=== PATIENT | female | born 1975 | race Caucasian/White ===

== ENCOUNTER 2016-12-30 19:00 | Emergency (ER) | payer OTHER ==
[~2016-12-30] VITALS: Ht 160 cm; Wt 68.0 kg
[2016-12-30] MEDS ORDERED: ASPIRIN 81 MG CHEW TABLET PO ONE (20:00)
[2016-12-30] MEDS ORDERED: NITROGLYCERIN 0.4 MG SUBL TABLET SL PRN (20:00)
[2016-12-30] MEDS ORDERED: ONDANSETRON 4MG/2ML VIAL (J2405) IV ONE (20:00)
[2016-12-30 20:04] VITALS: BP 162/97
[2016-12-30 20:04] LABS: BASO % 0.2 % (0.0-1.0); EOS % 0.4 % (0.0-3.0); LARGE UNSTAINED CELL # 0.1 K/mm3 (0.0-0.4); LYMPH # 1.1 K/mm3 (1.5-4.5); MEAN CORPUSCULAR HEMOGLOBIN 28.9 pg (27.0-33.0); MEAN CORPUSCULAR HGB CONC 33.7 g/dl (32.0-36.5); MEAN CORPUSCULAR VOLUME 85.7 fl (80.0-96.0); MONO # 0.6 K/mm3 (0.0-0.8); MONO % 4.5 % (0.0-5.0); NEUTROPHILS # 10.8 K/mm3 (1.8-7.7); PLATELET COUNT, AUTOMATED 374 k/mm3 (150-450); RED CELL DISTRIBUTION WIDTH 13.1 % (11.5-14.5); WHITE BLOOD COUNT 12.6 K/mm3 (4.0-10.0)
[2016-12-30] MEDS ORDERED: MORPHINE 4 MG/ML 1ML SYRINGE IV PRN (20:30)
[2016-12-30 20:34] LABS: ANION GAP 7 MEQ/L (8-16); BLOOD UREA NITROGEN 15 MG/DL (7-18); CALCIUM LEVEL 9.5 MG/DL (8.5-10.1); CARBON DIOXIDE LEVEL 29 MEQ/L (21-32); CHLORIDE LEVEL 102 MEQ/L (98-107); CREATININE FOR GFR 0.63 MG/DL (0.55-1.02); GLOMERULAR FILTRATION RATE > 60.0 (>58); GLUCOSE, FASTING 111 MG/DL (70-105); POTASSIUM SERUM 3.3 MEQ/L (3.5-5.1); SODIUM LEVEL 138 MEQ/L (136-145)
[2016-12-30] MEDS ORDERED: ISOVUE-370 76% 100ML VIAL (Q9967) As Ordered ONE ×2 (20:38→21:06)
[2016-12-30 20:49] LABS: CONTROL LINE HCG INT CTR LINE PRESENT
[2016-12-30] MEDS ORDERED: METOCLOPRAMIDE INJ 10MG/2ML VIAL (J2765) IV ONE (21:30)
--- NOTE | 2016-12-30 21:40 | REPUSA ---
CT angiogram of the chest Clinical statement: Chest pain and shortness of breath. Technique: Multiple axial CT images were obtained from the thoracic inlet through the upper abdomen a fter a bolus administration of nonionic intravenous contrast. Coronal and sagittal reconstructions we re also obtained. Comparison: None. Findings: The pulmonary arteries are well-opacified with contrast, with no intraluminal filling defec ts to suggest embolism. The thoracic aorta is unremarkable. Thyroid gland is within normal limits. Th ere is no thoracic lymphadenopathy. There are no pericardial or pleural effusions. The lungs are lui r. Limited imaging of the upper abdomen is unremarkable. There are no suspicious osseous lesions. Impression: Unremarkable CT examination of the chest. No evidence of pulmonary embolism.
--- NOTE | 2016-12-30 21:44 | ECGEPIP ---
Stationary ECG Study [facility] - ED Test Date: 2016-12-30 Pat Name: ROB SANCHEZ Department: Room: - Gender: F Sawmill Worker: rn : 1975 Requested By: LORENA Hernandez Order Number: [id number] Reading MD: Fabian Mcnamara Measurements Intervals [place] Rate: 95 P: 31 NV: 162 QRS: 4 QRSD: 85 T: 13 QT: 343 QTc: 432 Interpretive Statements SINUS RHYTHM VOLTAGE CRITERIA FOR LVH NONSPECIFIC T-WAVE ABNORMALITY NO PRIORS Electronically Signed On 12-30-2016 21:44:27 EDT by Fabian Mcnamara
[2016-12-30 22:53] VITALS: BP 109/73
== END 2016-12-30 22:54 | disposition home or self-care (01) ==
LOC: M ED 20:53
DX: R07.89 Other chest pain (principal); J30.2 Other seasonal allergic rhinitis; Z88.5 Allergy status to narcotic agent; Z91.040 Latex allergy status

== ENCOUNTER → 2017-01-24 | Outpatient (CLI) | payer OTHER ==
--- NOTE | 2017-01-24 15:29 | REPMRS ---
Patient History The patient states she had a clinical breast exam in 01/2017. Patient is postmenopausal. No known family history of cancer. Digital Woman Screen Mammo: January 24, 2017 - Exam #: [id number] Bilateral CC and MLO view(s) were taken. Technologist: Hannah Peterson, Technologist Prior study comparison: June 03, 2012, bilateral digital mammo screening bilat, performed at [facility]. FINDINGS: There are scattered fibroglandular densities. There has been no change in the appearance of the mammogram from the prior studies. There is a mild amount of residual fibroglandular tissue which is fairly symmetric. There is no interval development of dominant mass, architectural distortion, or clustered microcalcification suggestive of malignancy. ASSESSMENT: BI-RADS/ACR category 1 mammogram. Negative. Recommendation Routine screening mammogram in 1 year (for women over age 40). This mammogram was interpreted with the aid of an FDA-approved computer-aided dectection system. Electronically Signed By: Emir Roldan MD 01/24/17 1437
--- NOTE | 2017-01-28 09:51 | DEXA ---
AP SPINE L1 - L4 0.889 -2.5 -2.5 LT FEMUR TOTAL 0.807 -1.6 -1.3 RT FEMUR TOTAL 0.772 -1.9 -1.6 TOTAL BODY TOTAL OTHER L4 0.781 -3.4 -3.4 DUAL FEMUR FRAX* ASSESSMENT Risk factors: Premature menopause. 10 year probability of fracture Major osteoporotic fracture 3.0 % Hip fracture 0.4 % COMMENTS: There is low bone density of the spine and hips. FOLLOW-UP: Recommendation for the next bone density exam: 2 years. MTDD
== END ==
LOC: M WHC 14:31
PROVIDERS: ATTEND Specialist
DX: Z12.31 Encounter for screening mammogram for malignant neoplasm of breast (principal); M81.8 Other osteoporosis without current pathological fracture
CPT/HCPCS: 77080; G0202

== ENCOUNTER 2017-02-20 09:36 | Emergency (ER) | payer OTHER ==
[~2017-02-20] VITALS: Ht 157.5 cm; Wt 68.1 kg
[2017-02-20] MEDS ORDERED: METOCLOPRAMIDE 10 MG TAB PO ONE (11:15)
[2017-02-20] MEDS ORDERED: KETOROLAC 60 MG/2 ML VIAL (J1885) IM ONE (11:15)
--- NOTE | 2017-02-20 11:40 | REP ---
CT Head without contrast HISTORY: Headache COMPARISON: None There is no intraparenchymal hemorrhage, acute infarct, mass or midline shift. The ventricular system is normal in appearance. There is no extra cerebral collection. There is no fracture. The visualized sinuses are clear. IMPRESSION: There is no intracranial lesion. Signed by Osmany Kaur MD 02/20/2017 11:24 A
--- NOTE | 2017-02-20 11:40 | REP ---
CT cervical spine without contrast HISTORY: Neck pain COMPARISON: 08/20/2014 There is no acute fracture or subluxation. There is no disc bulge or herniation. The spinal canal and neural foramina are patent. The intervertebral discs and vertebral bodies are normal in height. IMPRESSION: There is no acute fracture or subluxation. Signed by Osmany Kaur MD 02/20/2017 11:28 A
[2017-02-20] MEDS ORDERED: REGL10TA6 PO (11:55)
[2017-02-20] MEDS ORDERED: MOBI4TAB PO (11:55)
[2017-02-20] MEDS ORDERED: ZANA4TAB PO (11:55)
[2017-02-20 12:05] VITALS: BP 136/84
== END 2017-02-20 12:19 | disposition home or self-care (01) ==
LOC: M ED 09:36
DX: R51 Headache (principal); M54.2 Cervicalgia; G89.29 Other chronic pain

== ENCOUNTER → 2017-02-20 | Outpatient (CLI) | payer OTHER ==
[~2017-02-20] MED LIST: CIPR-249 PO; FLOM5CAP PO; MOBI4TAB PO; REGL10TA6 PO; ZANA4TAB PO
== END ==
LOC: M LAB 07:53
PROVIDERS: ATTEND Specialist
DX: N91.1 Secondary amenorrhea (principal)

== ENCOUNTER → 2017-02-26 | Outpatient (REF) | payer OTHER ==
[2017-02-26 14:30] LABS: ALBUMIN 3.8 GM/DL (3.2-5.2); ALBUMIN/GLOBULIN RATIO 1.12 (1.00-1.93); ALKALINE PHOSPHATASE 123 U/L (45-117); ALT/SGPT 30 U/L (12-78); ANION GAP 5 MEQ/L (8-16); AST/SGOT 14 U/L (15-37); BILIRUBIN,TOTAL 0.4 MG/DL (0.2-1.0); BLOOD UREA NITROGEN 7 MG/DL (7-18); CALCIUM LEVEL 9.4 MG/DL (8.5-10.1); CARBON DIOXIDE LEVEL 29 MEQ/L (21-32); CHLORIDE LEVEL 107 MEQ/L (98-107); CHOLESTEROL LEVEL 202 MG/DL (<200); CREATININE FOR GFR 0.58 MG/DL (0.55-1.02); GLOMERULAR FILTRATION RATE > 60.0 (>58); GLUCOSE, FASTING 81 MG/DL (70-105); SODIUM LEVEL 141 MEQ/L (136-145); TOTAL PROTEIN 7.2 GM/DL (6.4-8.2); TRIGLYCERIDES LEVEL 104 MG/DL (<150)
[2017-02-26 14:40] LABS: POTASSIUM SERUM 5.6 MEQ/L (3.5-5.1)
== END ==
LOC: M LAB REF 13:34
PROVIDERS: ATTEND Family Medicine Addiction Medicine
DX: E03.9 Hypothyroidism, unspecified (principal); E78.5 Hyperlipidemia, unspecified; E55.9 Vitamin D deficiency, unspecified

== ENCOUNTER 2017-04-03 15:28 | Emergency (ER) | payer OTHER ==
[~2017-04-03] VITALS: Ht 160 cm; Wt 68.2 kg
[~2017-04-03 15:28] MED LIST changes: -CIPR-249 PO; -FLOM5CAP PO
[2017-04-03] MEDS ORDERED: NS 1,000 ML IV ONE (16:00)
[2017-04-03 16:39] LABS: BASO % 0.2 % (0.0-1.0); EOS # 0.1 K/mm3 (0.0-0.50); EOS % 1.5 % (0.0-3.0); LARGE UNSTAINED CELL # 0.2 K/mm3 (0.0-0.4); LARGE UNSTAINED CELL % 2.5 % (0.0-4.0); LYMPH # 1.8 K/mm3 (1.5-4.5); LYMPH % 25.4 % (24.0-44.0); MEAN CORPUSCULAR HEMOGLOBIN 29.3 pg (27.0-33.0); MEAN CORPUSCULAR HGB CONC 33.8 g/dl (32.0-36.5); MEAN CORPUSCULAR VOLUME 86.6 fl (80.0-96.0); MONO # 0.4 K/mm3 (0.0-0.8); MONO % 6.4 % (0.0-5.0); NEUTROPHILS # 4.4 K/mm3 (1.8-7.7); PLATELET COUNT, AUTOMATED 382 k/mm3 (150-450); RED CELL DISTRIBUTION WIDTH 12.9 % (11.5-14.5); WHITE BLOOD COUNT 6.9 K/mm3 (4.0-10.0)
[2017-04-03 16:46] LABS: CONTROL LINE HCG INT CTR LINE PRESENT
[2017-04-03 16:55] LABS: ALBUMIN 3.8 GM/DL (3.2-5.2); ALKALINE PHOSPHATASE 114 U/L (45-117); ALT/SGPT 17 U/L (12-78); ANION GAP 8 MEQ/L (8-16); AST/SGOT 7 U/L (15-37); BILIRUBIN,DIRECT < 0.1 MG/DL (0.0-0.2); BILIRUBIN,TOTAL 0.3 MG/DL (0.2-1.0); BLOOD UREA NITROGEN 8 MG/DL (7-18); CALCIUM LEVEL 8.5 MG/DL (8.5-10.1); CARBON DIOXIDE LEVEL 28 MEQ/L (21-32); CHLORIDE LEVEL 109 MEQ/L (98-107); CREATININE FOR GFR 0.56 MG/DL (0.55-1.02); GLOMERULAR FILTRATION RATE > 60.0 (>58); GLUCOSE, FASTING 69 MG/DL (70-105); POTASSIUM SERUM 3.3 MEQ/L (3.5-5.1); SODIUM LEVEL 145 MEQ/L (136-145); TOTAL PROTEIN 7.6 GM/DL (6.4-8.2)
[2017-04-03] MEDS ORDERED: POTASSIUM CHLORIDE 10 MEQ SR TABLET PO ONE (17:00)
--- NOTE | 2017-04-03 17:42 | REP ---
CT abdomen pelvis without IV or oral contrast: Renal stone protocol. History: Right flank pain. Comparison study: 03/22/2015. Findings: Preliminary digital warrant clerk radiograph is unremarkable. The lung bases are clear. The liver and the spleen are normal in size homogeneous in texture. No adrenal lesion is seen. No pancreatic abnormality is noted. The gallbladder small and contracted in appearance. No retroperitoneal mass or adenopathy is seen. Uterus is surgically absent. Urinary bladder is unremarkable. There is moderate right-sided hydronephrosis. Right hydroureter is seen in can be traced into the pelvis where there is a obstructing distal ureteral calculus just above the ureterovesical junction. This obstructing calculus measures 4 mm in greatest diameter. There is a intrarenal calculus in the lower pole right kidney measuring 3 mm in diameter. There is an intrarenal 3 mm calculus at the left mid kidney. No left-sided hydronephrosis is seen. No ureteral calculus is noted on the left. No bladder calculus is seen. The appendix is not seen. Impression: 1. Bilateral intrarenal nephrolithiasis. 2. Moderate right-sided hydronephrosis and hydroureter due to a 4 mm right distal ureteral calculus just above the ureterovesical junction. Signed by Noel Herrera MD 04/04/2017 08:31 A
[2017-04-03] MEDS ORDERED: CIPR-249 PO (17:54)
[2017-04-03 17:55] VITALS: BP 136/83
[2017-04-03] MEDS ORDERED: FLOM5CAP PO (17:55)
[2017-04-03] MEDS ORDERED: CIPROFLOXACIN 500 MG TAB PO ONE (18:00)
[2017-04-03] MEDS ORDERED: TAMSULOSIN 0.4 MG CAP PO ONE (18:00)
[2017-06-19] MEDS ORDERED: KEFL500C17 PO (11:20)
[2017-06-19] MEDS ORDERED: TESS100C PO (11:20)
[2017-06-19] MEDS ORDERED: PROAAER10 INH (11:20)
[2017-06-19] MEDS ORDERED: PRED20TA PO (11:20)
== END 2017-04-03 18:20 | disposition home or self-care (01) ==
LOC: M ED 15:28
DX: N20.1 Calculus of ureter (principal)

== ENCOUNTER 2018-06-04 10:27 | Emergency (ER) | payer OTHER ==
[2018-06-04 11:10] LABS: BASO % 0.5 % (0.0-1.0); EOS # 0.1 10^3/uL (0.0-0.50); EOS % 0.9 % (0.0-3.0); HEMATOCRIT 39.3 % (36.0-47.0); HEMOGLOBIN 13.1 g/dl (12.0-15.5); IMMATURE GRANULOCYTE % 0.3 % (0-3.0); LYMPH % 30.3 % (24.0-44.0); MEAN CORPUSCULAR HEMOGLOBIN 28.6 pg (27.0-33.0); MEAN CORPUSCULAR HGB CONC 33.3 g/dl (32.0-36.5); MEAN CORPUSCULAR VOLUME 85.8 fl (80.0-96.0); MONO # 0.6 10^3/uL (0.0-0.8); MONO % 9.4 % (0.0-5.0); NEUTROPHILS # 3.8 10^3/uL (1.8-7.7); NEUTROPHILS % 58.6 % (36.0-66.0); PLATELET COUNT, AUTOMATED 377 10^3/uL (150-450); RED BLOOD COUNT 4.58 10^6/uL (4.00-5.40); RED CELL DISTRIBUTION WIDTH 12.9 % (11.5-14.5); WHITE BLOOD COUNT 6.5 10^3/uL (4.0-10.0)
[2018-06-04 11:16] LABS: KETONE, URINE AUTO RFX NEGATIVE (NEGATIVE); MUCUS, URINE RFX SMALL (NEGATIVE); NITRITE, URINE AUTO RFX NEGATIVE (NEGATIVE); RBC, URINE AUTO RFX 2 /HPF (0-3); SPECIFIC GRAVITY UR AUTO RFX 1.011 (1.002-1.035); SQUAM EPITHELIAL CELL UR AURFX 0 /HPF (0-6); WBC, URINE AUTO RFX 8 /HPF (0-3)
[2018-06-04 11:36] LABS: ALBUMIN/GLOBULIN RATIO 1.18 (1.00-1.93); ALKALINE PHOSPHATASE 118 U/L (45-117); ALT/SGPT 19 U/L (12-78); ANION GAP 5 MEQ/L (8-16); AST/SGOT 16 U/L (7-37); BILIRUBIN,DIRECT < 0.1 MG/DL (0.0-0.2); BILIRUBIN,TOTAL 0.3 MG/DL (0.2-1.0); BLOOD UREA NITROGEN 9 MG/DL (7-18); CALCIUM LEVEL 9.6 MG/DL (8.5-10.1); CARBON DIOXIDE LEVEL 31 MEQ/L (21-32); CHLORIDE LEVEL 106 MEQ/L (98-107); CREATININE FOR GFR 0.64 MG/DL (0.55-1.30); GLOMERULAR FILTRATION RATE > 60.0 (>58); GLUCOSE, FASTING 91 MG/DL (70-100); LEUKOCYTE ESTERASE UR AUTO RFX 1+ (NEGATIVE); LIPASE 179 U/L (73-393); POTASSIUM SERUM 4.4 MEQ/L (3.5-5.1); SODIUM LEVEL 142 MEQ/L (136-145); TOTAL PROTEIN 7.4 GM/DL (6.4-8.2)
[2018-06-04] MEDS: CIPROFLOXACIN 500 MG TAB PO (12:06)
== END 2018-06-04 12:16 | disposition home or self-care (01) ==
LOC: M ED 10:27
DX: N30.90 Cystitis, unspecified without hematuria (principal); Z87.442 Personal history of urinary calculi; Z88.5 Allergy status to narcotic agent; Z91.040 Latex allergy status; J30.2 Other seasonal allergic rhinitis
CPT/HCPCS: 74176

== ENCOUNTER 2019-04-09 11:27 | Day surgery (SDC) | payer OTHER, SELFPAY ==
[~2019-04-09] VITALS: Ht 160 cm; Wt 67.2 kg
[~2019-04-09 11:27] MED LIST changes: +CIPR-249 PO; +FLOM0.4C39 PO; +IBUP-1022 PO; +KEFL500C17 PO; +LIDOCAINE 1% MDV 20ML VIAL SQ PRN; +LIDOCAINE 2% INJ 100 MG/5 ML SDV (FOR ANES.) As Ordered ONE; +LR 1,000 ML IV SCH; +MIDAZOLAM INJ 2 MG/2 ML VIAL (J2250) As Ordered ONE; +ONDANSETRON 4MG/2ML VIAL (J2405) As Ordered ONE; +PRED20TA PO; +PROAAER10 INH; +PROPOFOL 200 MG/20 ML VIAL As Ordered ONE; +ROCURONIUM BROMIDE 50 MG/5 ML VIAL As Ordered ONE; +TESS100C PO; +dexameTHASONE 4 MG/ML 1ML VIAL (J1100) As Ordered ONE; +fentaNYL 100 MCG/2 ML INJECTION (J3010) As Ordered ONE
[2019-04-09] MEDS ORDERED: LIDOCAINE 2% MDV *ALTO* 20 ML VIAL ONE (11:28)
[2019-04-09] MEDS ORDERED: ROPIvacaine 0.5% 30 ML INJECTION (J2795 PER 1MG) ONE (11:28)
[2019-04-09] MEDS ORDERED: dexameTHASONE 10 MG/1 ML VIAL PRES.FREE (J1100) ONE (11:28)
[2019-04-09] MEDS ORDERED: EPINEPHrine 1MG/ML INJ 30ML MD-VIAL As Ordered ONE (12:02)
[2019-04-09] MEDS ORDERED: MIDAZOLAM INJ 2 MG/2 ML VIAL (J2250) As Ordered ONE (12:13)
[2019-04-09] MEDS ORDERED: fentaNYL 100 MCG/2 ML INJECTION (J3010) As Ordered ONE (12:13)
[2019-04-09] MEDS ORDERED: HYDROmorphone HCL 2 MG/ML 1ML VIAL (J1170) As Ordered ONE (13:21)
[2019-04-09] MEDS ORDERED: SUGAMMADEX SODIUM 500 MG/5 ML VIAL (BRIDION) As Ordered ONE (13:35)
[2019-04-09] MEDS ORDERED: PHENYLephrine HCL 500 MCG/5 ML (100MCG/ML) SYRINGE (J2370) As Ordered ONE (13:47)
[2019-04-09] MEDS ORDERED: ROCURONIUM BROMIDE 50 MG/5 ML VIAL As Ordered ONE (13:58)
[2019-04-09] MEDS ORDERED: MIDAZOLAM INJ 2 MG/2 ML VIAL (J2250) IV ONE (14:30)
[2019-04-09] MEDS ORDERED: fentaNYL 100 MCG/2 ML INJECTION (J3010) IV ONE (14:30)
[2019-04-09] MEDS ORDERED: ACETAMINOPHEN 1000MG 100ML IV BTL (OFIRMEV) (J0131 PER 10MG) As Ordered ONE (15:09)
[2019-04-09] MEDS ORDERED: PERCOCET 5MG/325MG TAB PO PRN (16:30)
[2019-04-09] MEDS ORDERED: LR 1,000 ML IV SCH ×2 (16:30→18:45)
[2019-04-09] MEDS ORDERED: HYDROMORPHONE HCL 0.5 MG/ 0.5 ML SYRINGE (J1170 PER 1) IV PRN (16:30)
[2019-04-09] MEDS ORDERED: fentaNYL 100 MCG/2 ML INJECTION (J3010) IV PRN (16:30)
[2019-04-09] MEDS ORDERED: ONDANSETRON 4MG/2ML VIAL (J2405) IV PRN (16:30)
[2019-04-09] MEDS ORDERED: METOCLOPRAMIDE INJ 10MG/2ML VIAL (J2765) As Ordered ONE (16:38)
[2019-04-09] MEDS ORDERED: METOCLOPRAMIDE INJ 10MG/2ML VIAL (J2765) IV SCH (16:45)
[2019-04-09] MEDS ORDERED: PROMETHAZINE INJ 25 MG/ML VIAL (J2550) As Ordered ONE (18:20)
[2019-04-09] MEDS ORDERED: PROMETHAZINE INJ 25 MG/ML VIAL (J2550) IV SCH (18:30)
[2019-04-09 19:50] VITALS: BP 124/71
--- NOTE | 2019-04-09 23:00 | RO ---
DATE OF PROCEDURE: 04/09/2019 PREOPERATIVE DIAGNOSES: 1. Left shoulder partial thickness rotator cuff tear. 2. Left shoulder superior labral tear. 3. Left shoulder acromioclavicular joint arthritis. POSTOPERATIVE DIAGNOSES: 1. Left shoulder partial thickness rotator cuff tear. 2. Left shoulder superior labral tear. 3. Left shoulder acromioclavicular joint arthritis. PROCEDURE: 1. Left shoulder arthroscopic rotator cuff repair. 2. Left shoulder open subpectoral biceps tenodesis. 3. Right shoulder arthroscopic extensive bursectomy. SURGEON: Dr. Alberto Padron QA SOFTWARE TESTER: KIMMY Kauffman ANESTHESIA: General with preoperative nerve block. IV FLUIDS: Lactated Ringer's. ESTIMATED BLOOD LOSS: 10 mL. IMPLANTS: Arthrex proximal biceps tenodesis button times one, Arthrex 4.75 mm PEEK SwiveLock anchor times three. CLOSURE: Nylon and Monocryl. DESCRIPTION OF PROCEDURE: Patient identified in the preoperative holding area. The left shoulder was marked by myself. She had interscalene nerve block. She was brought to the operating room, placed supine on a well-padded operating room (OR) table with a beanbag. General anesthesia induced. She received appropriate intravenous (IV) antibiotics within 1 hour of incision. Exam under anesthesia revealed 170 degrees of forward flexion, 80 of external rotation with the arm at her side. She was then placed into the right side down lateral decubitus position with an axillary roll, and all bony prominences well padded. She had bilateral Venodyne boots for deep vein thrombosis (DVT) prophylaxis. Beanbag was deflated, she was secured to the OR table, and then the left arm was placed into the Arthrex STaR Sleeve lateral decubitus traction boykin. The left shoulder was then prepped and draped in the normal sterile fashion with Chloraprep. Prior to incision, a time-out was performed per hospital protocol. Ely Mcrae was present for the entire procedure and participated in all essential portions of the procedure. This included holding the arthroscope, retrieving sutures arthroscopically, using the mallet and awl to help create sockets for anchors and holding retractors, and assisting with the whipstitch during the biceps tenodesis. The left shoulder was insufflated with lactated Ringer's and a posterior viewing portal made with 11 blade. 30 degree arthroscope introduced into the joint atraumatically, and a diagnostic arthroscopy revealed degenerative labral tearing in the anterior and superior labrum. There was minimal grade 1 chondromalacia in the humeral head and glenoid. There was tearing; there was partial articular tearing of the supraspinatus as well as tearing of the upper border of the subscapularis. An anterior working portal was localized through the rotator interval in line with the acromioclavicular (AC) joint. A purple Arthrex cannula was placed. There was lift off of the subscapularis doing the posterior lever push maneuver. A shaver was used to perform a debridement of the partial articular tear of both the subscapularis and supraspinatus. The biceps tendon was probed. There was no tearing of the biceps. At this point, there was significant lift off with greater than 1 cm of exposed lesser tuberosity; therefore, subscapularis repair required. There was also tearing of the superior labrum. This required at biceps tenodesis. A meniscal biter was used to release the biceps tendon off the superior labrum. I then used the shaver to remove soft tissue off the lesser tuberosity to create a bleeding surface. The Scorpion was used to pass FiberTape through the upper one-third of the subscapularis further medial through healthy tissue. This was retrieved out an accessory anterior portal to give a better angle for placing the anchor. A socket was created with the awl and mallet and then the SwiveLock anchor was docked, sutures tensioned and the anchor inserted by hand with excellent fixation. Sutures were cut with arthroscopic straight cutter. There was no longer any liftoff the subscapularis. I then proceeded with an open biceps tenodesis. Incision made with a 15 blade just lateral to the axilla and then subcutaneous dissection with electrocautery and Metzenbaum scissors. Biceps fascia carefully opened with Metzenbaum scissors and a right angle clamp used to dissect out the long head of the biceps tendon uneventfully. The Arthrex proximal biceps kit was opened, a running locking whipstitch placed with the FiberLoop and then excess tendon trimmed and sent to pathology. The sutures were loaded through the biceps button per routine. Cautery was used to linn the proposed drill hole and then the sutures approximated to the cautery linn, and this was found to nicely restore the resting tension. Jasper tip drill bit was then used to create a unicortical socket within the bicipital groove and irrigation used to remove all bony debris. The button was then passed through the drill hole on its constitutional law professor, sutures were toggled which flipped the button and then docked the tendon nicely along the bicipital groove. A curve-free needle was used to pass one limb of suture back through the tendon and then knots were tied by hand to lock the construct in place, and this nicely restored the resting tension. The incision was extensively irrigated, closed in layered fashion with #2-0 Vicryl and a running Monocryl. At the end of the case, Steri-Strips were placed. Arthroscope was placed into the subacromial space where there was extensive bursitis. Once the plane between bursa and rotator cuff was developed, I had to perform an extensive bursectomy with shaver and cautery, taking care not to damage the degenerative bursal surface. Then attempted to localize the acromioclavicular joint. This was eventually localized with a spinal needle. However, there was significant scar tissue and despite creating an accessory posterolateral portal to give a better review, whenever the radiofrequency cautery was used to remove the scar tissue, bleeding was encountered and had to be cauterized. After spending 10 minutes clearing out soft tissue within the subacromial space, I felt that it was unwise to proceed with an arthroscopic distal clavicle excision, and we move forward with doing the rest of the rotator cuff repair. Spinal needle was passed through the highest degree area of bursal-sided rotator cuff tearing and then the scope placed back into the joint, and this confirmed that this was within the anterior to middle supraspinatus. This was felt to represent about a two-thirds partial thickness tear with just under 50% partial articular tear and slightly under 25% bursal-sided tear. Cautery was used to complete the tear and then soft tissue was cleared off the tuberosity to create a bleeding surface. An Arthrex 4.75 mm SwiveLock anchor preloaded with tape was then placed just off the articular surface percutaneously. Sutures were passed in a horizontal mattress fashion including the eyelet stitches for a total of four passes. The sutures were then brought out to the lateral cannula and that was used to determine the appropriate place for the lateral anchor. Sutures loaded through a 4.75 mm PEEK SwiveLock anchor. The awl was used to create a socket in the lateral greater tuberosity. The anchor was docked, malleted and then inserted by hand with fantastic fixation. There was an excellent spread on the sutures with no dog ears. The shoulder was then gently internally and externally rotated. There was no lift off for buckling. Shoulder was irrigated and drained. Portals were closed with nylon suture. Bulky sterile dressing was applied. She was carefully placed into her sling, extubated, sent to post-anesthesia care unit (PACU) in stable condition. All counts correct times two.
== END 2019-04-09 19:55 | disposition home or self-care (01) ==
LOC: M SDC 11:27
PROVIDERS: ATTEND Orthopaedic Surgery
DX: M75.112 Incomplete rotator cuff tear or rupture of left shoulder, not specified as traumatic (principal); M19.012 Primary osteoarthritis, left shoulder; S43.432A Superior glenoid labrum lesion of left shoulder, initial encounter; F41.9 Anxiety disorder, unspecified; Z91.040 Latex allergy status; Z88.8 Allergy status to other drugs, medicaments and biological substances; Y92.9 Unspecified place or not applicable; Y93.9 Activity, unspecified
CPT/HCPCS: 23430; 29823; 29827; 64415; 88304; C1713; J0131; J0690; J1100; J1170; J2250; J2370; J2405; J2765; J2795; J3010

== ENCOUNTER → 2019-12-07 | Outpatient (CLI) | payer OTHER, SELFPAY ==
[~2019-12-07] MED LIST changes: -LIDOCAINE 1% MDV 20ML VIAL SQ PRN; -LIDOCAINE 2% INJ 100 MG/5 ML SDV (FOR ANES.) As Ordered ONE; -LR 1,000 ML IV SCH; -MIDAZOLAM INJ 2 MG/2 ML VIAL (J2250) As Ordered ONE; -ONDANSETRON 4MG/2ML VIAL (J2405) As Ordered ONE; -PROPOFOL 200 MG/20 ML VIAL As Ordered ONE; -ROCURONIUM BROMIDE 50 MG/5 ML VIAL As Ordered ONE; -dexameTHASONE 4 MG/ML 1ML VIAL (J1100) As Ordered ONE; -fentaNYL 100 MCG/2 ML INJECTION (J3010) As Ordered ONE
== END ==
LOC: M LABSMTC 11:59
PROVIDERS: ATTEND Anesthesiology
DX: Z01.818 Encounter for other preprocedural examination (principal); Z11.59 Encounter for screening for other viral diseases

== ENCOUNTER 2019-12-10 09:00 | Day surgery (SDC) | payer OTHER ==
[~2019-12-10] VITALS: Ht 160 cm; Wt 71.7 kg
[~2019-12-10 09:00] MED LIST changes: +LIDOCAINE 1% MDV 20ML VIAL SQ PRN; +LR 1,000 ML IV ONE; +SCOPOLAMINE 1MG TRANSDERMAL PATCH TOP ONE; +ceFAZolin SOD 2 GM in IV 1 EA IV ONE
[2019-12-10] MEDS ORDERED: dexameTHASONE 10MG/1ML VIAL PRES.FREE (J1100 PER 1MG) ONE (09:01)
[2019-12-10] MEDS ORDERED: EPINEPHrine INJ 1 MG/ML 1ML AMP ONE (09:01)
[2019-12-10] MEDS ORDERED: ROPIvacaine 0.5% 30ML INJECTION (J2795 PER 1MG) ONE (09:01)
[2019-12-10] MEDS ORDERED: EPINEPHrine 1MG/ML INJ 30ML MD-VIAL As Ordered ONE (09:53)
[2019-12-10] MEDS ORDERED: fentaNYL 100 MCG/2 ML INJECTION (J3010) As Ordered ONE (09:57)
[2019-12-10] MEDS ORDERED: MIDAZOLAM INJ 2MG/2ML VIAL (J2250 PER 1MG) As Ordered ONE ×2 (09:57→10:16)
[2019-12-10] MEDS ORDERED: ROCURONIUM BROMIDE 50 MG/5 ML VIAL As Ordered ONE (10:15)
[2019-12-10] MEDS ORDERED: propofoL 200 MG/20 ML VIAL As Ordered ONE (10:15)
[2019-12-10] MEDS ORDERED: fentaNYL 250 MCG/5 ML INJECTION (J3010) As Ordered ONE (10:15)
[2019-12-10] MEDS ORDERED: LIDOCAINE 2% 100MG/5ML SDV (FOR ANES.) As Ordered ONE (10:15)
[2019-12-10] MEDS ORDERED: SUCCINYLCHOLINE 100 MG/5 ML SYRINGE (J0330) As Ordered ONE (10:16)
[2019-12-10] MEDS ORDERED: fentaNYL 100 MCG/2 ML INJECTION (J3010) IV ONE (10:30)
[2019-12-10] MEDS ORDERED: MIDAZOLAM INJ 2MG/2ML VIAL (J2250 PER 1MG) IV ONE (10:30)
[2019-12-10] MEDS ORDERED: KETOROLAC 60 MG/2 ML VIAL As Ordered ONE (11:27)
[2019-12-10] MEDS ORDERED: dexameTHASONE 4 MG/ML 1ML VIAL (J1100 PER 1MG) As Ordered ONE (11:27)
[2019-12-10] MEDS ORDERED: ACETAMINOPHEN 1000MG 100ML IV BTL (OFIRMEV) (J0131 PER 10MG) As Ordered ONE (11:27)
[2019-12-10] MEDS ORDERED: ONDANSETRON 4MG/2ML VIAL As Ordered ONE ×2 (11:27→15:38)
[2019-12-10] MEDS ORDERED: METOCLOPRAMIDE INJ 10MG/2ML VIAL (J2765 PER 1) As Ordered ONE (11:28)
[2019-12-10] MEDS ORDERED: ePHEDrine SULFATE 25 MG/5 ML(5MG/ML) SYRINGE As Ordered ONE (11:55)
[2019-12-10] MEDS ORDERED: SUGAMMADEX SODIUM 500 MG/5 ML VIAL (BRIDION) As Ordered ONE (13:48)
[2019-12-10] MEDS ORDERED: fentaNYL 100 MCG/2 ML INJECTION (J3010) IV PRN (14:30)
[2019-12-10] MEDS ORDERED: LR 1,000 ML IV SCH ×2 (14:30)
[2019-12-10] MEDS ORDERED: ONDANSETRON 4MG/2ML VIAL IV PRN (14:30)
[2019-12-10] MEDS ORDERED: oxyCODONE 5MG TAB PO PRN (14:30)
[2019-12-10 16:05] VITALS: BP 123/73
--- NOTE | 2019-12-14 17:18 | RO ---
DATE OF SURGERY: 12/10/2019 PREOPERATIVE DIAGNOSES: 1. Left shoulder rotator cuff retear. 2. Left shoulder acromioclavicular joint arthritis. POSTOPERATIVE DIAGNOSES: 1. Left shoulder rotator cuff retear. 2. Left shoulder acromioclavicular joint arthritis. 3. Left shoulder arthrofibrosis. 4. Left shoulder chondromalacia. PROCEDURE: 1. Left shoulder manipulation under anesthesia. 2. Left shoulder arthroscopic lysis of adhesions and chondroplasty. 3. Left shoulder arthroscopic revision rotator cuff repair. 4. Left shoulder open distal clavicle excision (Leslie procedure). SURGEON: Dr. Alberto Padron PROJECT ACCOUNTANT: KIMMY Ingram ANESTHESIA: General with preoperative nerve block. INTRAVENOUS (IV) FLUIDS: Lactated Ringer's. ESTIMATED BLOOD LOSS: 25 mL. IMPLANTS: Arthrex 5.5 mm PEEK SwiveLock anchor times two. CLOSURE: Nylon. DESCRIPTION OF PROCEDURE: The patient was identified in the preoperative holding area. The left shoulder was marked by myself. She had an interscalene nerve block. She was brought to the operating room, placed supine on a well-padded operating room (OR) table with a beanbag. General anesthesia was induced. She received appropriate IV antibiotics within 1 hour of incision. After time-out was performed, I perform examination under anesthesia. She had 150 degrees of forward flexion, 40 degrees of external rotation with the arm at her side, 50 degrees of external rotation with her shoulder at 90. I then performed a gentle manipulation under anesthesia applying forward flexion and abduction. Several small audible pops were felt. I then performed some gentle external rotation followed by internal rotation and adduction. Same steps were repeated. She now had 170 degrees of forward flexion, 60 degrees of external rotation with arm at her side, and 80 degrees external rotation with her shoulder at 90. She was then placed into the right side down lateral decubitus position with an axillary roll, and all bony prominences well padded. Bilateral Venodyne boots for deep venous thrombosis (DVT) prophylaxis. The left arm was placed in the art Arthrex STaR Sleeve, lateral decubitus traction boykin 10 pounds of traction. The left shoulder was prepped and draped in normal sterile fashion with ChloraPrep. Second time-out was performed. Ely was present for the entire procedure and participated in all essential portions of the procedure. This included patient positioning, draping, holding the arthroscope, holding retractors during the distal clavicle excision, retrieving sutures, assisting with malleting in anchors and performed the wound closure, applied the dressing and sling. I first proceeded with the open distal clavicle excision. A small longitudinal incision was made with a 15 blade just medial to the acromioclavicular (AC) joint. Subcutaneous dissection with electrocautery. Blunt finger dissection down to the deltotrapezial fascia. A T-capsulotomy was performed with the Bovie cautery elevating full-thickness flaps. With the soft tissues protected, the oscillating saw was used to remove about 8 mm of the distal clavicle. Cautery was used to excise a thickened portion of the superior AC ligament and the remnant of the disc. At this point, I was easily able to fit my small finger into the AC joint confirming an excellent resection. I then extensively irrigated. Rongeur was used to remove bony prominence at the top of both the acromion and clavicle. I then performed a closure, used #0 Vicryl in a figure-of-8 fashion to close the T capsulotomy. Extra suture was used at the anterior and especially posterior aspect of the AC joint to reinforce the ligaments. I re-irrigated then closed with #2-0 Vicryl and a running #3-0 nylon. Posterior viewing portal made with an 11-blade, 30 degrees arthroscope was introduced into the joint. Diagnostic arthroscopy revealed mild chondromalacia in the glenoid. There is extensive scar tissue formation in the rotator interval and along the anterior capsule. An anterior working portal was established in the rotator interval. Shaver was used to perform a synovectomy and a chondroplasty. No high-grade chondromalacia. Cautery and shaver were used to clear out the rotator interval to find the subscapularis repair which was intact from the first surgery. I then used cautery and a meniscal biter to release the upper portion of the middle glenohumeral ligament. There is improved liftoff now at the glenohumeral joint. Drive-through sign was negative. The articular portion of the prior rotator cuff repair was inspected. There was no full-thickness tear but the sutures were loose. This was consistent with a high-grade partial repair. The arthroscope was now placed into the subacromial space. The lateral working portal was established, and extensive bursectomy performed with shaver and cautery. Rotator cuff repair from the first surgery was inspected and palpated with a switching stick was found to be re-tearing, high-grade partial repairing. Radiofrequency cautery was used to complete the tear. An open envelope cutter was used to remove suture from the prior repair. The medial and lateral anchors were palpated with a switching stick, and they were found to be secure. Given that the patient had relatively soft bone, I elected to leave the anchors in place in order to have more options for anchor placement without worrying about loosening. A ring curette was used to clear soft tissue off the tuberosity. The 5.5 mm Arthrex PEEK SwiveLock anchor was then placed further posterior than the initial anchor just off the articular surface. This had excellent fixation. FiberLink suture was passed through the anterior portion of the tear and retrieved out the anterior portal. Next, one limb of FiberTape was passed just posterior to that. The eyelet stitches were then passed next, going anterior to posterior. Tape was passed. The last limb of the tape was passed in the far posterior portion of the tear. The eyelet stitches were then tied using alternating half hitch technique with a knot pusher. All five limbs of suture retrieved out through the lateral portal loaded through 5.5 SwiveLock anchor. The punch was used to create a socket in the lateral tuberosity. The anchor was docked, suture tensioned with excellent repair compression. At the far anterior portion of the tear, there is a very small dog ear. Given that this was a revision repair, I did want to take any chances, and although it did not lift off or buckle, I did elect to pass the eyelet stitch from the lateral anchor back through that small dog ear. Unfortunately, I could not get a good angle with a bird beak instruments. I did open a SutureLasso and I used that to then shuttle one of the eyelet stitches from the lateral anchor through the far anterior tear and then tied knots using alternating half-hitch technique and that set the leading edge. There now no dog ears, no liftoff or buckling. The shoulder was irrigated, and portals closed with nylon suture. Bulky sterile dressing applied. She was extubated, transferred to post anesthesia care unit (PACU) in stable condition.
== END 2019-12-10 16:30 | disposition home or self-care (01) ==
LOC: M SDC 09:00
PROVIDERS: ATTEND Orthopaedic Surgery
DX: M75.22 Bicipital tendinitis, left shoulder (principal); M75.102 Unspecified rotator cuff tear or rupture of left shoulder, not specified as traumatic; M19.012 Primary osteoarthritis, left shoulder; K21.9 Gastro-esophageal reflux disease without esophagitis; J45.909 Unspecified asthma, uncomplicated; Z91.040 Latex allergy status; Z88.5 Allergy status to narcotic agent
CPT/HCPCS: 23120; 23430; 29826; 29827; 64415; 88300; C1713; J0131; J0171; J0330; J0690; J1100; J1885; J2250; J2405; J2765; J2795; J3010

== ENCOUNTER 2020-08-23 11:55 | Emergency (ER) | payer MEDICAID, OTHER ==
[~2020-08-23] VITALS: Ht 160 cm; Wt 73.6 kg
[~2020-08-23 11:55] MED LIST changes: -LIDOCAINE 1% MDV 20ML VIAL SQ PRN; -LR 1,000 ML IV ONE; -SCOPOLAMINE 1MG TRANSDERMAL PATCH TOP ONE; -ceFAZolin SOD 2 GM in IV 1 EA IV ONE
--- OUTSIDE RECORDS SUMMARY | 2020-08-23 12:01 | CCD | Continuity of Care Document ---
Author Author Samanta DACOSTA DPT Organization Unknown Address [address] [place] [address] Phone [phone] Care Team Providers Care Industrial Insulator Name Role Phone Ramin Walton MD AUTM [phone] Albino Yu PA-C AUTM [phone] [facility] - [phone] AUTM Problems Active Problems Provider Date Headache Onset: 2017 Chronic neck pain Onset: 2017 Atypical chest pain Onset: 12/30/2016 Social History Type Date Description Comments Sex Unknown ETOH Use Occasionally consumes alcohol Tobacco Use Start: Unknown Patient has never smoked Smoking Status Reviewed: 09/14/19 Patient has never smoked Allergies, Adverse Reactions, Alerts Active Allergies Reaction Severity Comments Date Vicodin 12/13/2014 Latex 12/13/2014 Hydrocodone 12/30/2016 Medications Active Medications SIG Qnty Indications Ordering Provide r Date MS Contin 15mg Tablets ER 1 tab po q12h prn / post surgical pain 4tabs Alberto Padron MD 12/03/2019 Ibu 600mg Tablets 1 tab po q8h prn / post surgical pain 90tabs Alberto Padron MD 0 Morphine Sulfate 15mg Tablets take 1 tablet every 4 hours as needed for post op pain 12-10-2019 30tabs Alberto Padron MD 12/03/2019 Immunizations Description No Information Available Vital Signs Date Vital Result Comment 08/02/2020 2:24pm Body Temperature 97.3 F 04/07/2019 4:20pm Body Temperature 98.3 F Height 63 inches 5'3" Weight 149.00 lb BMI (Body Mass Index) 26.4 kg/m2 Results Description No Information Available Procedures Date Code Description Status 08/10/202077947 Re-Eval Of PT Establ ished Plan Of Care 20Mins Face To Face PT/Fam Completed 08/10/2020 57778 Therapeutic Procedure, Each 15 M inutes Completed 08/10/2020 01228 Therapeutic Procedure, Each 15 M inutes Completed 08/08/2020 94638 Therapeutic Procedure, Each 15 M inutes Completed 08/08/2020 93375 Therapeutic Procedure, Each 15 M inutes Completed 07/31/2020 68438 Therapeutic Procedure, Each 15 M inutes Completed 07/31/2020 87988 Therapeutic Procedure, Each 15 M inutes Completed 07/28/2020 38737 Therapeutic Procedure, Each 15 M inutes Completed 07/28/2020 17338 Therapeutic Procedure, Each 15 M inutes Completed 07/25/2020 71560 Therapeutic Procedure, Each 15 M inutes Completed 07/25/2020 52454 Therapeutic Procedure, Each 15 M inutes Completed 07/17/2020 53253 Therapeutic Procedure, Each 15 M inutes Completed 07/17/2020 33244 Therapeutic Procedure, Each 15 M inutes Completed 06/30/2020 20416 Therapeutic Procedure, Each 15 M inutes Completed 06/30/2020 47735 Therapeutic Procedure, Each 15 M inutes Completed 06/28/2020 88250 Physical Therapy Eval - Low Comp lexity Completed 06/28/2020 87634 Therapeutic Procedure, Each 15 M inutes Completed 06/23/2020 63802 Inject/Drain Joint/Bursa Major C ompleted 03/15/2020 94127 Inject/Drain Joint/Bursa Major C ompleted 03/15/2020 17379 X-Ray Shoulder Complete Complete d 03/09/2020 75289 Therapeutic Procedure, Each 15 M inutes Completed 03/09/2020 23380 Therapeutic Procedure, Each 15 M inutes Completed 03/07/2020 57068 Re-Eval Of PT Establ ished Plan Of Care 20Mins Face To Face PT/Fam Completed 03/07/2020 66585 Therapeutic Procedure, Each 15 M inutes Completed 03/07/2020 19853 Therapeutic Procedure, Each 15 M inutes Completed 03/02/2020 98850 Therapeutic Procedure, Each 15 M inutes Completed 03/02/2020 62844 Therapeutic Procedure, Each 15 M inutes Completed 02/24/2020 39486 Therapeutic Procedure, Each 15 M inutes Completed 02/24/2020 66272 Therapeutic Procedure, Each 15 M inutes Completed 02/24/2020 81073 Therapeutic Procedure, Each 15 M inutes Completed 02/22/2020 03717 Therapeutic Procedure, Each 15 M inutes Completed 02/22/2020 65974 Therapeutic Procedure, Each 15 M inutes Completed 02/17/2020 82923 Therapeutic Procedure, Each 15 M inutes Completed 02/17/2020 25740 Therapeutic Procedure, Each 15 M inutes Completed 02/15/2020 26649 Therapeutic Procedure, Each 15 M inutes Completed 02/15/2020 78533 Therapeutic Procedure, Each 15 M inutes Completed Medical Devices Description No Information Available Encounters Type Date Location Provider Dx Diagnosis Office Visit 08/02/2020 2:[place]p [place] [facility] S46.012D Strain of musc/tend the rotator cuff of left shoulder, subs Office Visit 06/23/2020 2:30p Gabriela Padron MD S46. 012D Strain of musc/tend the rotator cuff of left shoulder, subs M75.41 Impingement syndrome of righ t shoulder Office Visit 04/27/2020 11:15a Gabriela Padron MD S46. 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 012D Strain of musc/tend the rotator cuff of left shoulder, subs M75.41 Impingement syndrome of righ t shoulder Assessments Date Code Description Provider 08/10/2020 S46.012D Strain of muscle(s) and tendon(s) of the rotator cuff of left shoulder, subsequent encounter Moisés Dacosta, PT, DPT 08/08/2020 S46.012D Strain of muscle(s) and tendon(s) of the rotator cuff of left shoulder, subsequent encounter Patricia Moeller, MSPT 08/02/2020 S46.012D Strain of muscle(s) and tendon(s) of the rotator cuff of left shoulder, subsequent encounter Dinh Mathews, PMonika 07/31/2020 S46.012D Strain of muscle(s) and tendon(s) of the rotator cuff of left shoulder, subsequent encounter Moisés Dacosta, PT, DPT 07/28/2020 S46.012D Strain of muscle(s) and tendon(s) of the rotator cuff of left shoulder, subsequent encounter Moisés Dacosta, PT, DPT 07/25/2020 S46.012D Strain of muscle(s) and tendon(s) of the rotator cuff of left shoulder, subsequent encounter Heron Delvalle P.T. 07/17/2020 S46.012D Strain of muscle(s) and tendon(s) of the rotator cuff of left shoulder, subsequent encounter Moisés Dacosta, PT, DPT 06/30/2020 S46.012D Strain of muscle(s) and tendon(s) of the rotator cuff of left shoulder, subsequent encounter Heron Delvalle P.T. 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 Alberto Padron MD 03/15/2020 S46.012D Strain of muscle(s) and tendon(s) of the rotator cuff of left shoulder, subsequent encounter Alberto Padron MD 03/15/2020 M75.41 Impingement syndrome of right vi Padron MD 03/09/2020 S46.012D Strain of muscle(s) and tendon(s) of the rotator cuff of left shoulder, subsequent encounter Moisés Dacosta PT, DPT 03/07/2020 S46.012D Strain of muscle(s) and tendon(s) of the rotator cuff of left shoulder, subsequent encounter Moisés Dacosta, PT, DPT 03/02/2020 S46.012D Strain of muscle(s) and tendon(s) of the rotator cuff of left shoulder, subsequent encounter Moisés Dacosta, PT, DPT 02/24/2020 S46.012D Strain of muscle(s) and tendon(s) of the rotator cuff of left shoulder, subsequent encounter Moisés Dacosta, PT, DPT 02/22/2020 S46.012D Strain of muscle(s) and tendon(s) of the rotator cuff of left shoulder, subsequent encounter Moisés Dacosta, PT, DPT 02/17/2020 S46.012D Strain of muscle(s) and tendon(s) of the rotator cuff of left shoulder, subsequent encounter Moisés Dacosta, PT, DPT 02/15/2020 S46.012D Strain of muscle(s) and tendon(s) of the rotator cuff of left shoulder, subsequent encounter Moisés Dacosta, PT, DPT Plan of Treatment 08/02/2020 - Kevin Bey.* S46.012D Strain of muscle(s) and tendon(s) of the rotator cuff of left shoulder, subsequent encounter* Follow up:* PRN Functional Status Description No Information Available Mental Status Description No Information Available Referrals Refer to Dr Reason for Referral Status Appt Date Alberto Padron MD PT LT SHOULDER WRITTEN AUTH FOR 12 VISITS. PASSED TO PT DEPT. LS Created [address] [place] [address] [phone] Alberto Padron MD MRI T SPINE WRITTEN AUTH FOR DX PURPOSES. PASSED TO LAURIE. LILLY 06/28/20 DOMINGO BALDERAS TO NIC WITH AND WITHOUT CARLIE. PASSED TO GAUDENCIO S Created [address] [place] [address] [phone]
--- OUTSIDE RECORDS SUMMARY | 2020-08-23 12:02 | CCD | Continuity of Care Document ---
Author Author Samanta MATHEWS PMonika Organization Unknown Address [address] [place] [address] [place] [id number] Phone [phone] Care Team Providers Care Master Ocean Yacht Name Role Phone Ramin Walton MD AUTM [phone] Albino Yu PA-C AUTM [phone] [facility] - [phone] AUTM [phone] Problems Active Problems Provider Date Headache Onset: [...] Information Available Procedures Date Code Description Status 08/10/202041975 Re-Eval Of PT Establ ished Plan Of Care 20Mins Face To Face PT/Fam Completed 08/10/2020 76583 Therapeutic Procedure, Each 15 M inutes Completed 08/10/2020 79427 Therapeutic Procedure, Each 15 M inutes Completed 08/08/2020 45292 Therapeutic Procedure, Each 15 M inutes Completed 08/08/2020 35547 Therapeutic Procedure, Each 15 M inutes Completed 07/31/2020 55884 Therapeutic Procedure, Each 15 M inutes Completed 07/31/2020 26494 Therapeutic Procedure, Each 15 M inutes Completed 07/28/2020 76545 Therapeutic Procedure, Each 15 M inutes Completed 07/28/2020 46322 Therapeutic Procedure, Each 15 M inutes Completed 07/25/2020 67684 Therapeutic Procedure, Each 15 M inutes Completed 07/25/2020 05151 Therapeutic Procedure, Each 15 M inutes Completed 07/17/2020 00152 Therapeutic Procedure, Each 15 M inutes Completed 07/17/2020 73250 Therapeutic Procedure, Each 15 M inutes Completed 06/30/2020 27247 Therapeutic Procedure, Each 15 M inutes Completed 06/30/2020 19743 Therapeutic Procedure, Each 15 M inutes Completed 06/28/2020 79157 Physical Therapy Eval - Low Comp lexity Completed 06/28/2020 58133 Therapeutic Procedure, Each 15 M inutes Completed 06/23/2020 25631 Inject/Drain Joint/Bursa Major C ompleted 03/15/2020 35605 Inject/Drain Joint/Bursa Major C ompleted 03/15/2020 29209 X-Ray Shoulder Complete Complete d 03/09/2020 97313 Therapeutic Procedure, Each 15 M inutes Completed 03/09/2020 68556 Therapeutic Procedure, Each 15 M inutes Completed 03/07/2020 28701 Re-Eval Of PT Establ ished Plan Of Care 20Mins Face To Face PT/Fam Completed 03/07/2020 91364 Therapeutic Procedure, Each 15 M inutes Completed 03/07/2020 74837 Therapeutic Procedure, Each 15 M inutes Completed 03/02/2020 76563 Therapeutic Procedure, Each 15 M inutes Completed 03/02/2020 01122 Therapeutic Procedure, Each 15 M inutes Completed 02/24/2020 93457 Therapeutic Procedure, Each 15 M inutes Completed 02/24/2020 88990 Therapeutic Procedure, Each 15 M inutes Completed 02/24/2020 13736 Therapeutic Procedure, Each 15 M inutes Completed 02/22/2020 80272 Therapeutic Procedure, Each 15 M inutes Completed 02/22/2020 91100 Therapeutic Procedure, Each 15 M inutes Completed 02/17/2020 53067 Therapeutic Procedure, Each 15 M inutes Completed 02/17/2020 35828 Therapeutic Procedure, Each 15 M inutes Completed 02/15/2020 37874 Therapeutic Procedure, Each 15 M inutes Completed 02/15/2020 21491 Therapeutic Procedure, Each 15 M inutes Completed Medical Devices Description No Information Available Encounters Type Date Location Provider Dx Diagnosis Office Visit 08/02/2020 2:30p Gabriela Mathews, PMonika S46.012D Strain of musc/tend the rotator cuff [...] cuff of left shoulder, subsequent encounter Moisés Mccain, PT, DPT 08/08/2020 S46.012D Strain of muscle(s) and tendon(s) of the rotator cuff of left shoulder, subsequent encounter Patricia Moeller, MSPT 08/02/2020 S46.012D Strain of muscle(s) and tendon(s) of the rotator cuff of left shoulder, subsequent encounter Cyrus Bey 07/31/2020 S46.012D Strain of muscle(s) and tendon(s) of the rotator cuff of left shoulder, subsequent encounter Moisés Mccain, PT, DPT 07/28/2020 S46.012D Strain of muscle(s) and tendon(s) of the rotator cuff of left shoulder, subsequent encounter Moisés Mccain PT, DPT 07/25/2020 S46.012D Strain of muscle(s) and tendon(s) of the rotator cuff of left shoulder, subsequent encounter Heron Delvalle P.T. 07/17/2020 S46.012D Strain of muscle(s) and tendon(s) of the rotator cuff of left shoulder, subsequent encounter Moisés Mccain, PT, DPT 06/30/2020 S46.012D Strain of muscle(s) and tendon(s) of the rotator cuff of left shoulder, subsequent encounter Heron Delvalle P.T. 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 Alberto Padron MD 03/15/2020 S46.012D Strain of muscle(s) and tendon(s) of the rotator cuff of left shoulder, subsequent encounter Alberto Padron MD 03/15/2020 M75.41 Impingement syndrome of right sh vi Padron MD 03/09/2020 S46.012D Strain of muscle(s) and tendon(s) of the rotator cuff of left shoulder, subsequent encounter Moisés Mccain, PT, DPT 03/07/2020 S46.012D Strain of muscle(s) and tendon(s) of the rotator cuff of left shoulder, subsequent encounter Moisés Mccain, PT, DPT 03/02/2020 S46.012D Strain of muscle(s) and tendon(s) of the rotator cuff of left shoulder, subsequent encounter Moisés Mccain, PT, DPT 02/24/2020 S46.012D Strain of muscle(s) and tendon(s) of the rotator cuff of left shoulder, subsequent encounter Moisés Mccain, PT, DPT 02/22/2020 S46.012D Strain of muscle(s) and tendon(s) of the rotator cuff of left shoulder, subsequent encounter Moisés Mccain, PT, DPT 02/17/2020 S46.012D Strain of muscle(s) and tendon(s) of the rotator cuff of left shoulder, subsequent encounter Moisés Mccain, PT, DPT 02/15/2020 S46.012D Strain of muscle(s) and tendon(s) of the rotator cuff of left shoulder, subsequent encounter Moisés Mccain, PT, DPT Plan of Treatment 08/02/2020 - [...] VISITS. PASSED TO PT DEPT. LS Created [address] [place] [address] [phone] Alberto Padron MD MRI T SPINE WRITTEN AUTH FOR DX PURPOSES. PASSED TO LAURIE. LILLY 06/28/20 DOMINGO BALDERAS TO NIC WITH AND WITHOUT CARLIE. PASSED TO GAUDENCIO Tee Created [address] [place] [address] [phone]
--- OUTSIDE RECORDS SUMMARY | 2020-08-23 12:02 | CCD | Continuity of Care Document ---
Author Author Samanta DACOSTA DPT Organization Unknown Address [address] [place] [phone] Phone [phone] Care Team Providers Care Bisque Kiln Drawer Name Role Phone Ramin Walton MD AUTM [phone] Albino Yu PA-C AUTM [phone] [facility] - [phone] AUTM Problems Active Problems Provider Date Headache [...] Available Vital Signs Date Vital Result Comment 04/07/2019 4:20pm Body Temperature 98.3 F Height 63 inches 5'3" Weight 149.00 lb BMI (Body Mass Index) 26.4 kg/m2 01/11/2019 11:31am Body Temperature 98.5 F Height 63 inches 5'3" Weight 148.00 lb BMI (Body Mass Index) 26.2 kg/m2 Results Description No Information Available Procedures Date Code Description Status 07/28/2020 64179 Therapeutic Procedure, Each 15 M inutes Completed 07/28/2020 28575 Therapeutic Procedure, Each 15 M inutes Completed 07/25/2020 89733 Therapeutic Procedure, Each 15 M inutes Completed 07/25/2020 56026 Therapeutic Procedure, Each 15 M inutes Completed 07/17/2020 79336 Therapeutic Procedure, Each 15 M inutes Completed 07/17/2020 24081 Therapeutic Procedure, Each 15 M inutes Completed 06/30/2020 44125 Therapeutic Procedure, Each 15 M inutes Completed 06/30/2020 04080 Therapeutic Procedure, Each 15 M inutes Completed 06/28/2020 68423 Therapeutic Procedure, Each 15 M inutes Completed 06/28/2020 73239 Physical Therapy Eval - Low Comp lexity Completed 06/23/202060106 Inject/Drain Joint/Bursa Major C ompleted 03/15/2020 69560 X-Ray Shoulder Complete Complete d 03/15/202025832 Inject/Drain Joint/Bursa Major C ompleted 03/09/2020 28961 Therapeutic Procedure, Each 15 M inutes Completed 03/09/2020 38867 Therapeutic Procedure, Each 15 M inutes Completed 03/07/2020 50418 Re-Eval Of PT Establ ished Plan Of Care 20Mins Face To Face PT/Fam Completed 03/07/2020 93056 Therapeutic Procedure, Each 15 M inutes Completed 03/07/2020 72652 Therapeutic Procedure, Each 15 M inutes Completed 03/02/2020 07134 Therapeutic Procedure, Each 15 M inutes Completed 03/02/2020 08548 Therapeutic Procedure, Each 15 M inutes Completed 02/24/2020 78820 Therapeutic Procedure, Each 15 M inutes Completed 02/24/2020 56126 Therapeutic Procedure, Each 15 M inutes Completed 02/24/2020 41386 Therapeutic Procedure, Each 15 M inutes Completed 02/22/2020 75816 Therapeutic Procedure, Each 15 M inutes Completed 02/22/2020 78009 Therapeutic Procedure, Each 15 M inutes Completed 02/17/2020 24850 Therapeutic Procedure, Each 15 M inutes Completed 02/17/2020 95248 Therapeutic Procedure, Each 15 M inutes Completed 02/15/2020 06891 Therapeutic Procedure, Each 15 M inutes Completed 02/15/2020 67647 Therapeutic Procedure, Each 15 M inutes Completed 02/10/2020 38105 Therapeutic Procedure, Each 15 M inutes Completed 02/10/2020 93891 Therapeutic Procedure, Each 15 M inutes Completed 02/08/2020 10870 Re-Eval Of PT Establ ished Plan Of Care 20Mins Face To Face PT/Fam Completed 02/08/2020 14666 Therapeutic Procedure, Each 15 M inutes Completed 02/08/2020 18714 Therapeutic Procedure, Each 15 M inutes Completed 02/04/2020 61167 Therapeutic Procedure, Each 15 M inutes Completed 02/04/2020 75432 Therapeutic Procedure, Each 15 M inutes Completed 02/01/2020 37838 Therapeutic Procedure, Each 15 M inutes Completed 02/01/2020 28306 Therapeutic Procedure, Each 15 M inutes Completed Medical Devices Description No Information Available Encounters Type Date Location Provider Dx Diagnosis Office Visit 06/23/2020 2:30p Gabriela Padron MD [...] t shoulder Assessments Date Code Description Provider 07/28/2020 S46.012D Strain of muscle(s) and tendon(s) of the rotator cuff of left shoulder, subsequent encounter Moisés Dacosta, PT, DPT 07/25/2020 S46.012D Strain of muscle(s) and tendon(s) of the rotator cuff of left shoulder, subsequent encounter Heron Delvalle P.T. 07/17/2020 S46.012D Strain of muscle(s) and tendon(s) of the rotator cuff of left shoulder, subsequent encounter Moisés Dacosta PT, DPT 06/30/2020 S46.012D Strain of muscle(s) [...] shoulder, subsequent encounter Moisés Dacosta, PT, DPT 03/07/2020 S46.012D Strain of muscle(s) and tendon(s) of the rotator cuff of left shoulder, subsequent encounter Moisés Dacosta PT, DPT 03/02/2020 S46.012D Strain of muscle(s) and tendon(s) of the rotator cuff of left shoulder, subsequent encounter Moisés Dacosta PT, DPT 02/24/2020 S46.012D Strain of muscle(s) and tendon(s) of the rotator cuff of left shoulder, subsequent encounter Moisés Dacosta PT, DPT 02/22/2020 S46.012D Strain of muscle(s) and tendon(s) of the rotator cuff of left shoulder, subsequent encounter Moisés Dacosta, PT, DPT 02/17/2020 S46.012D Strain of muscle(s) and tendon(s) of the rotator cuff of left shoulder, subsequent encounter Moisés Dacosta, PT, DPT 02/15/2020 S46.012D Strain of muscle(s) and tendon(s) of the rotator cuff of left shoulder, subsequent encounter Moisés Dacosta, PT, DPT 02/10/2020 S46.012D Strain of muscle(s) and tendon(s) of the rotator cuff of left shoulder, subsequent encounter Moisés Dacosta, PT, DPT 02/08/2020 S46.012D Strain of muscle(s) and tendon(s) of the rotator cuff of left shoulder, subsequent encounter Moisés Dacosta, PT, DPT 02/04/2020 S46.012D Strain of muscle(s) and tendon(s) of the rotator cuff of left shoulder, subsequent encounter Moisés aDcosta, PT, DPT 02/01/2020 S46.012D Strain of muscle(s) and tendon(s) of the rotator cuff of left shoulder, subsequent encounter Moisés Dacosta, PT, DPT Plan of Treatment Future Appointment(s):* 08/08/2020 4:30 pm - Heron Delvalle P.T. at Physical Therapy * 08/02/2020 2:30 pm - Cyrus Bey at [place] Functional Status Description No Information Available Mental Status Description No Information Available Referrals Refer to Dr Reason for Referral Status Appt Date Alberto Padron MD PT LT SHOULDER WRITTEN AUTH FOR 12 VISITS. PASSED TO PT DEPT. LS Created [address] [place] [address] [phone] Alberto Padron MD MRI T SPINE WRITTEN AUTH FOR DX PURPOSES. PASSED TO LAURIE. LILLY 06/28/20 PER GENEVA BALDERAS TO NIC WITH AND WITHOUT CARLIE. PASSED TO GAUDENCIO S Created [address] [place] [address] [phone]
--- OUTSIDE RECORDS SUMMARY | 2020-08-23 12:02 | CCD | Continuity of Care Document ---
Author Author Samanta MOELLER MSPT Organization Unknown Address [address] [place] [address] Phone [phone] Care Team Providers Care Software Application Tester Name Role Phone Ramin Walton MD AUTM [phone] Albino Yu PA-C AUTM [phone] [facility] - [phone] AUTM [phone] Problems Active Problems Provider Date Headache Onset: [...] Information Available Procedures Date Code Description Status 08/10/202092934 Re-Eval Of PT Establ ished Plan Of Care 20Mins Face To Face PT/Fam Completed 08/10/2020 83805 Therapeutic Procedure, Each 15 M inutes Completed 08/10/2020 57495 Therapeutic Procedure, Each 15 M inutes Completed 08/08/2020 03027 Therapeutic Procedure, Each 15 M inutes Completed 08/08/2020 51774 Therapeutic Procedure, Each 15 M inutes Completed 07/31/2020 79672 Therapeutic Procedure, Each 15 M inutes Completed 07/31/2020 07908 Therapeutic Procedure, Each 15 M inutes Completed 07/28/2020 90501 Therapeutic Procedure, Each 15 M inutes Completed 07/28/2020 30738 Therapeutic Procedure, Each 15 M inutes Completed 07/25/2020 84775 Therapeutic Procedure, Each 15 M inutes Completed 07/25/2020 94001 Therapeutic Procedure, Each 15 M inutes Completed 07/17/2020 12304 Therapeutic Procedure, Each 15 M inutes Completed 07/17/2020 62015 Therapeutic Procedure, Each 15 M inutes Completed 06/30/2020 67029 Therapeutic Procedure, Each 15 M inutes Completed 06/30/2020 58464 Therapeutic Procedure, Each 15 M inutes Completed 06/28/2020 20053 Physical Therapy Eval - Low Comp lexity Completed 06/28/202017169 Therapeutic Procedure, Each 15 M inutes Completed 06/23/2020 19268 Inject/Drain Joint/Bursa Major C ompleted 03/15/2020 42652 Inject/Drain Joint/Bursa Major C ompleted 03/15/2020 41042 X-Ray Shoulder Complete Complete d 03/09/2020 92620 Therapeutic Procedure, Each 15 M inutes Completed 03/09/2020 24282 Therapeutic Procedure, Each 15 M inutes Completed 03/07/2020 66472 Re-Eval Of PT Establ ished Plan Of Care 20Mins Face To Face PT/Fam Completed 03/07/2020 04679 Therapeutic Procedure, Each 15 M inutes Completed 03/07/2020 00962 Therapeutic Procedure, Each 15 M inutes Completed 03/02/2020 41820 Therapeutic Procedure, Each 15 M inutes Completed 03/02/2020 00528 Therapeutic Procedure, Each 15 M inutes Completed 02/24/2020 10167 Therapeutic Procedure, Each 15 M inutes Completed 02/24/2020 77890 Therapeutic Procedure, Each 15 M inutes Completed 02/24/2020 93326 Therapeutic Procedure, Each 15 M inutes Completed 02/22/2020 41209 Therapeutic Procedure, Each 15 M inutes Completed 02/22/2020 61737 Therapeutic Procedure, Each 15 M inutes Completed 02/17/2020 83997 Therapeutic Procedure, Each 15 M inutes Completed 02/17/2020 22113 Therapeutic Procedure, Each 15 M inutes Completed 02/15/2020 19967 Therapeutic Procedure, Each 15 M inutes Completed 02/15/2020 80442 Therapeutic Procedure, Each 15 M inutes Completed Medical Devices Description No Information Available Encounters Type Date Location Provider Dx Diagnosis Office Visit 08/02/2020 2:30p [facility] S46.012D Strain of musc/tend the [...] of left shoulder, subsequent encounter Dinh Mathews, Cyrus 07/31/2020 S46.012D Strain of muscle(s) and tendon(s) of the rotator cuff of left shoulder, subsequent encounter Moisés Mccain, PT, DPT 07/28/2020 S46.012D Strain of muscle(s) and tendon(s) of the rotator cuff of left shoulder, subsequent encounter Moisés Mccain, PT, DPT 07/25/2020 S46.012D Strain of muscle(s) and tendon(s) of the rotator cuff of left shoulder, subsequent encounter Heron Delvalle P.T. 07/17/2020 S46.012D Strain of muscle(s) and tendon(s) of the rotator cuff of left shoulder, subsequent encounter Moisés Mccain PT, DPT 06/30/2020 S46.012D Strain of muscle(s) [...] shoulder, subsequent encounter Moisés Mccain PT, DPT 03/07/2020 S46.012D Strain of muscle(s) [...] VISITS. PASSED TO PT DEPT. LS Created [address] [place] [address] [phone] Alberto Padron MD MRI T SPINE WRITTEN AUTH FOR DX PURPOSES. PASSED TO LAURIE. LILLY 06/28/20 DOMINGO BALDERAS TO NIC WITH AND WITHOUT CARLIE. PASSED TO GAUDENCIO S Created [address] [place] [address] [phone]
--- OUTSIDE RECORDS SUMMARY | 2020-08-23 12:02 | CCD | Continuity of Care Document ---
Author Author Samanta DACOSTA DPT Organization Unknown Address [address] [place] [address] Phone [phone] Care Team Providers Care Weigher Operator Name Role Phone Ramin Walton MD AUTM [phone] Albino Yu PA-C AUTM [phone] [facility] - [phone] AUTM [phone] Problems Active Problems Provider Date Headache Onset: [...] Information Available Procedures Date Code Description Status 07/25/2020 98216 Therapeutic Procedure, Each 15 M inutes Completed 07/25/2020 56445 Therapeutic Procedure, Each 15 M inutes Completed 07/17/2020 13983 Therapeutic Procedure, Each 15 M inutes Completed 07/17/2020 16492 Therapeutic Procedure, Each 15 M inutes Completed 06/30/2020 67685 Therapeutic Procedure, Each 15 M inutes Completed 06/30/2020 68163 Therapeutic Procedure, Each 15 M inutes Completed 06/28/2020 81296 Physical Therapy Eval - Low Comp lexity Completed 06/28/202003813 Therapeutic Procedure, Each 15 M inutes Completed 06/23/2020 95638 Inject/Drain Joint/Bursa Major C ompleted 03/15/2020 17281 Inject/Drain Joint/Bursa Major C ompleted 03/15/2020 63156 X-Ray Shoulder Complete Complete d 03/09/2020 90945 Therapeutic Procedure, Each 15 M inutes Completed 03/09/2020 69284 Therapeutic Procedure, Each 15 M inutes Completed 03/07/2020 59335 Re-Eval Of PT Establ ished Plan Of Care 20Mins Face To Face PT/Fam Completed 03/07/2020 30286 Therapeutic Procedure, Each 15 M inutes Completed 03/07/2020 84988 Therapeutic Procedure, Each 15 M inutes Completed 03/02/2020 09403 Therapeutic Procedure, Each 15 M inutes Completed 03/02/2020 53505 Therapeutic Procedure, Each 15 M inutes Completed 02/24/2020 62809 Therapeutic Procedure, Each 15 M inutes Completed 02/24/2020 44260 Therapeutic Procedure, Each 15 M inutes Completed 02/24/2020 49922 Therapeutic Procedure, Each 15 M inutes Completed 02/22/2020 61511 Therapeutic Procedure, Each 15 M inutes Completed 02/22/2020 41847 Therapeutic Procedure, Each 15 M inutes Completed 02/17/2020 93889 Therapeutic Procedure, Each 15 M inutes Completed 02/17/2020 40050 Therapeutic Procedure, Each 15 M inutes Completed 02/15/2020 48580 Therapeutic Procedure, Each 15 M inutes Completed 02/15/2020 94828 Therapeutic Procedure, Each 15 M inutes Completed 02/10/2020 03654 Therapeutic Procedure, Each 15 M inutes Completed 02/10/2020 36651 Therapeutic Procedure, Each 15 M inutes Completed 02/08/2020 01430 Re-Eval Of PT Establ ished Plan Of Care 20Mins Face To Face PT/Fam Completed 02/08/2020 08850 Therapeutic Procedure, Each 15 M inutes Completed 02/08/2020 20053 Therapeutic Procedure, Each 15 M inutes Completed 02/04/2020 86310 Therapeutic Procedure, Each 15 M inutes Completed 02/04/2020 89720 Therapeutic Procedure, Each 15 M inutes Completed 02/01/2020 57216 Therapeutic Procedure, Each 15 M inutes Completed 02/01/2020 67730 Therapeutic Procedure, Each 15 M inutes Completed [...] t shoulder Assessments Date Code Description Provider 07/25/2020 S46.012D Strain of muscle(s) and tendon(s) [...] shoulder, subsequent encounter Moisés Dacosta PT, DPT 06/23/2020 S46.012D Strain of muscle(s) [...] shoulder, subsequent encounter Moisés Dacosta PT, DPT 02/17/2020 S46.012D Strain of muscle(s) and tendon(s) of the rotator cuff of left shoulder, subsequent encounter Moisés Dacosta PT, DPT 02/15/2020 S46.012D Strain of muscle(s) [...] shoulder, subsequent encounter Moisés Dacosta, PT, DPT 02/01/2020 S46.012D Strain of muscle(s) and tendon(s) of the rotator cuff of left shoulder, subsequent encounter Moisés Dacosta, PT, DPT Plan of Treatment Future Appointment(s):* 07/31/2020 4:30 pm - Moisés Dacosta PT, DPT at Physical Therapy * 08/02/2020 2:30 pm - Cyrus Bey at [place] Functional Status Description No Information Available Mental Status Description No Information Available Referrals Refer to Dr Reason for Referral Status Appt Date Alberto Padron MD PT LT SHOULDER WRITTEN AUTH FOR 12 VISITS. PASSED TO PT DEPT. LS Created [address] [place] [address] [phone] Alberto Padron MD MRI T SPINE WRITTEN AUTH FOR DX PURPOSES. PASSED TO LAURIE. LILLY 06/28/20 DOMINGO BALDERAS TO NIC WITH AND WITHOUT CARLIE. PASSED TO GAUDENCIO Tee Created [address] [place] [address] [phone]
--- OUTSIDE RECORDS SUMMARY | 2020-08-23 12:02 | CCD | Continuity of Care Document ---
Author Author Samnata DACOSTA DPT Organization Unknown Address [address] [place] [address] Phone [phone] Care Team Providers Care Pneumatic Tube Repairer Name Role Phone Ramin Walton MD AUTM [phone] Albino Yu PA-C AUTM [phone] [facility] - [phone] AUTM Problems Active Problems Provider Date Headache [...] Information Available Procedures Date Code Description Status 07/17/2020 81976 Therapeutic Procedure, Each 15 M inutes Completed 07/17/2020 30536 Therapeutic Procedure, Each 15 M inutes Completed 06/30/2020 74642 Therapeutic Procedure, Each 15 M inutes Completed 06/30/2020 52034 Therapeutic Procedure, Each 15 M inutes Completed 06/28/2020 29886 Physical Therapy Eval - Low Comp lexity Completed 06/28/2020 77826 Therapeutic Procedure, Each 15 M inutes Completed 06/23/2020 26382 Inject/Drain Joint/Bursa Major C ompleted 03/15/2020 31999 X-Ray Shoulder Complete Complete d 03/15/202020053 Inject/Drain Joint/Bursa Major C ompleted 03/09/2020 36096 Therapeutic Procedure, Each 15 M inutes Completed 03/09/2020 13128 Therapeutic Procedure, Each 15 M inutes Completed 03/07/2020 81258 Re-Eval Of PT Establ ished Plan Of Care 20Mins Face To Face PT/Fam Completed 03/07/2020 90133 Therapeutic Procedure, Each 15 M inutes Completed 03/07/2020 96869 Therapeutic Procedure, Each 15 M inutes Completed 03/02/2020 48430 Therapeutic Procedure, Each 15 M inutes Completed 03/02/2020 59259 Therapeutic Procedure, Each 15 M inutes Completed 02/24/2020 56413 Therapeutic Procedure, Each 15 M inutes Completed 02/24/2020 04055 Therapeutic Procedure, Each 15 M inutes Completed 02/24/2020 07588 Therapeutic Procedure, Each 15 M inutes Completed 02/22/2020 04133 Therapeutic Procedure, Each 15 M inutes Completed 02/22/2020 64761 Therapeutic Procedure, Each 15 M inutes Completed 02/17/2020 37687 Therapeutic Procedure, Each 15 M inutes Completed 02/17/2020 38094 Therapeutic Procedure, Each 15 M inutes Completed 02/15/2020 07946 Therapeutic Procedure, Each 15 M inutes Completed 02/15/2020 50740 Therapeutic Procedure, Each 15 M inutes Completed 02/10/2020 57693 Therapeutic Procedure, Each 15 M inutes Completed 02/10/2020 99956 Therapeutic Procedure, Each 15 M inutes Completed 02/08/2020 73377 Re-Eval Of PT Establ ished Plan Of Care 20Mins Face To Face PT/Fam Completed 02/08/2020 53399 Therapeutic Procedure, Each 15 M inutes Completed 02/08/2020 18870 Therapeutic Procedure, Each 15 M inutes Completed 02/04/2020 96199 Therapeutic Procedure, Each 15 M inutes Completed 02/04/2020 58626 Therapeutic Procedure, Each 15 M inutes Completed 02/01/2020 52098 Therapeutic Procedure, Each 15 M inutes Completed 02/01/2020 41663 Therapeutic Procedure, Each 15 M inutes Completed 01/27/2020 62672 Therapeutic Procedure, Each 15 M inutes Completed 01/27/2020 80529 Therapeutic Procedure, Each 15 M inutes Completed 01/25/2020 45135 Therapeutic Procedure, Each 15 M inutes Completed 01/25/2020 84423 Therapeutic Procedure, Each 15 M inutes Completed 01/21/2020 63744 Therapeutic Procedure, Each 15 M inutes Completed 01/21/2020 53254 Therapeutic Procedure, Each 15 M inutes Completed [...] syndrome of righ t shoulder Office Visit 01/24/2020 10:30a Gabriela Padron MD S46. 012D Strain of musc/tend the rotator cuff of left shoulder, subs Assessments Date Code Description Provider 07/17/2020 S46.012D Strain of muscle(s) and tendon(s) [...] shoulder, subsequent encounter Moisés Dacosta PT, DPT 02/10/2020 S46.012D Strain of muscle(s) and tendon(s) of the rotator cuff of left shoulder, subsequent encounter Moisés Dacosta PT, DPT 02/08/2020 S46.012D Strain of muscle(s) and tendon(s) of the rotator cuff of left shoulder, subsequent encounter Moisés Dacosta PT, DPT 02/04/2020 S46.012D Strain of muscle(s) and tendon(s) of the rotator cuff of left shoulder, subsequent encounter Moisés Dacosta PT, DPT 02/01/2020 S46.012D Strain of muscle(s) and tendon(s) of the rotator cuff of left shoulder, subsequent encounter Moisés Dacosta PT, DPT 01/27/2020 S46.012D Strain of muscle(s) and tendon(s) of the rotator cuff of left shoulder, subsequent encounter Moissé Dacosta PT, DPT 01/25/2020 S46.012D Strain of muscle(s) and tendon(s) of the rotator cuff of left shoulder, subsequent encounter Moisés Dacosta PT, DPT 01/24/2020 S46.012D Strain of muscle(s) and tendon(s) of the rotator cuff of left shoulder, subsequent encounter Alberto Padron MD 01/21/2020 S46.012D Strain of muscle(s) and tendon(s) of the rotator cuff of left shoulder, subsequent encounter Moisés Dacosta PT, DPT Plan of Treatment Future Appointment(s):* 07/28/2020 4:30 pm - Moisés Dacosta PT, DPT at Physical Therapy * 07/25/2020 4:30 pm - Heron Delvalle P.T. at Physical Therapy * 08/02/2020 2:30 pm - Cyrus Bey at [place] Functional Status Description No Information Available Mental Status Description No Information Available Referrals Refer to Dr Reason for Referral Status Appt Date Alberto Padron MD PT LT SHOULDER WRITTEN AUTH FOR 12 VISITS. PASSED TO PT DEPT. LS Created [address] [place] [address] [phone] Alberto Padron MD MRI T SPINE WRITTEN AUTH FOR DX PURPOSES. PASSED TO LAURIE. LILLY 06/28/20 PER GENEVA OK TO NIC WITH AND WITHOUT CARLIE. PASSED TO GAUDENCIO Tee Created [address] [place] [address] [phone]
--- OUTSIDE RECORDS SUMMARY | 2020-08-23 12:02 | CCD | Continuity of Care Document ---
Author Author Samanta DACOSTA DPT Organization Unknown Address [address] [place] [address] Phone [phone] Care Team Providers Care Signal Supervisor Name Role Phone Ramin Walton MD AUTM [phone] Albino Yu PA-C AUTM [phone] [facility] - [phone] AUTM Problems Active Problems Provider Date Headache [...] Information Available Procedures Date Code Description Status 08/10/202034014 Re-Eval Of PT Establ ished Plan Of Care 20Mins Face To Face PT/Fam Completed 08/10/2020 33270 Therapeutic Procedure, Each 15 M inutes Completed 08/10/2020 10017 Therapeutic Procedure, Each 15 M inutes Completed 08/08/2020 62576 Therapeutic Procedure, Each 15 M inutes Completed 08/08/2020 85990 Therapeutic Procedure, Each 15 M inutes Completed 07/31/2020 26723 Therapeutic Procedure, Each 15 M inutes Completed 07/31/2020 54468 Therapeutic Procedure, Each 15 M inutes Completed 07/28/2020 10029 Therapeutic Procedure, Each 15 M inutes Completed 07/28/2020 44603 Therapeutic Procedure, Each 15 M inutes Completed 07/25/2020 27325 Therapeutic Procedure, Each 15 M inutes Completed 07/25/2020 97414 Therapeutic Procedure, Each 15 M inutes Completed 07/17/2020 00700 Therapeutic Procedure, Each 15 M inutes Completed 07/17/2020 90522 Therapeutic Procedure, Each 15 M inutes Completed 06/30/2020 22376 Therapeutic Procedure, Each 15 M inutes Completed 06/30/2020 73470 Therapeutic Procedure, Each 15 M inutes Completed 06/28/2020 64687 Physical Therapy Eval - Low Comp lexity Completed 06/28/2020 55637 Therapeutic Procedure, Each 15 M inutes Completed 06/23/2020 30230 Inject/Drain Joint/Bursa Major C ompleted 03/15/2020 72143 Inject/Drain Joint/Bursa Major C ompleted 03/15/2020 46744 X-Ray Shoulder Complete Complete d 03/09/2020 05514 Therapeutic Procedure, Each 15 M inutes Completed 03/09/2020 19071 Therapeutic Procedure, Each 15 M inutes Completed 03/07/2020 22972 Re-Eval Of PT Establ ished Plan Of Care 20Mins Face To Face PT/Fam Completed 03/07/2020 25481 Therapeutic Procedure, Each 15 M inutes Completed 03/07/2020 55856 Therapeutic Procedure, Each 15 M inutes Completed 03/02/2020 42499 Therapeutic Procedure, Each 15 M inutes Completed 03/02/2020 40388 Therapeutic Procedure, Each 15 M inutes Completed 02/24/2020 18767 Therapeutic Procedure, Each 15 M inutes Completed 02/24/2020 25257 Therapeutic Procedure, Each 15 M inutes Completed 02/24/2020 63568 Therapeutic Procedure, Each 15 M inutes Completed 02/22/2020 05079 Therapeutic Procedure, Each 15 M inutes Completed 02/22/2020 06203 Therapeutic Procedure, Each 15 M inutes Completed 02/17/2020 50061 Therapeutic Procedure, Each 15 M inutes Completed 02/17/2020 56892 Therapeutic Procedure, Each 15 M inutes Completed 02/15/2020 70917 Therapeutic Procedure, Each 15 M inutes Completed 02/15/2020 56437 Therapeutic Procedure, Each 15 M inutes Completed Medical Devices Description No Information Available Encounters Type Date Location Provider Dx Diagnosis Office Visit 08/02/2020 2:30p [place] Mathews, P.A. S46.012D Strain of musc/tend the [...] VISITS. PASSED TO PT DEPT. LS Created [address] [place] [address] [phone] Alberto Padron MD MRI T SPINE WRITTEN AUTH FOR DX PURPOSES. PASSED TO LAURIE. LILLY 06/28/20 DOMINGO BALDERAS TO NIC WITH AND WITHOUT CARLIE. PASSED TO GAUDENCIO S Created [address] [place] [address] [phone]
--- OUTSIDE RECORDS SUMMARY | 2020-08-23 12:02 | CCD | Continuity of Care Document ---
Author Author Samanta DELVALLE P.T. Organization Unknown Address [address] [place] [address] [address] [place] [address] Phone [phone] Care Team Providers Care Business Development Coordinator Name Role Phone Ramin Walton MD AUTM [phone] Albino Yu PA-C AUTM [phone] [facility] - [phone] AUTM [phone] Problems Active Problems Provider Date Headache Onset: [...] Available Procedures Date Code Description Status 07/17/2020 06573 Therapeutic Procedure, Each 15 M inutes Completed 07/17/2020 95916 Therapeutic Procedure, Each 15 M inutes Completed 06/30/2020 28350 Therapeutic Procedure, Each 15 M inutes Completed 06/30/2020 99457 Therapeutic Procedure, Each 15 M inutes Completed 06/28/2020 60332 Physical Therapy Eval - Low Comp lexity Completed 06/28/2020 05490 Therapeutic Procedure, Each 15 M inutes Completed 06/23/2020 24410 Inject/Drain Joint/Bursa Major C ompleted 03/15/2020 21301 X-Ray Shoulder Complete Complete d 03/15/202079004 Inject/Drain Joint/Bursa Major C ompleted 03/09/2020 17790 Therapeutic Procedure, Each 15 M inutes Completed 03/09/2020 48911 Therapeutic Procedure, Each 15 M inutes Completed 03/07/2020 79944 Re-Eval Of PT Establ ished Plan Of Care 20Mins Face To Face PT/Fam Completed 03/07/2020 71126 Therapeutic Procedure, Each 15 M inutes Completed 03/07/2020 26813 Therapeutic Procedure, Each 15 M inutes Completed 03/02/2020 30439 Therapeutic Procedure, Each 15 M inutes Completed 03/02/2020 79248 Therapeutic Procedure, Each 15 M inutes Completed 02/24/2020 53090 Therapeutic Procedure, Each 15 M inutes Completed 02/24/2020 84295 Therapeutic Procedure, Each 15 M inutes Completed 02/24/2020 12270 Therapeutic Procedure, Each 15 M inutes Completed 02/22/2020 21259 Therapeutic Procedure, Each 15 M inutes Completed 02/22/2020 72067 Therapeutic Procedure, Each 15 M inutes Completed 02/17/2020 58304 Therapeutic Procedure, Each 15 M inutes Completed 02/17/2020 30678 Therapeutic Procedure, Each 15 M inutes Completed 02/15/2020 55577 Therapeutic Procedure, Each 15 M inutes Completed 02/15/2020 07528 Therapeutic Procedure, Each 15 M inutes Completed 02/10/2020 48157 Therapeutic Procedure, Each 15 M inutes Completed 02/10/2020 05465 Therapeutic Procedure, Each 15 M inutes Completed 02/08/2020 03507 Therapeutic Procedure, Each 15 M inutes Completed 02/08/2020 68960 Therapeutic Procedure, Each 15 M inutes Completed 02/08/2020 42602 Re-Eval Of PT Establ ished Plan Of Care 20Mins Face To Face PT/Fam Completed 02/04/2020 19022 Therapeutic Procedure, Each 15 M inutes Completed 02/04/2020 44401 Therapeutic Procedure, Each 15 M inutes Completed 02/01/2020 73490 Therapeutic Procedure, Each 15 M inutes Completed 02/01/2020 26950 Therapeutic Procedure, Each 15 M inutes Completed 01/27/2020 59059 Therapeutic Procedure, Each 15 M inutes Completed 01/27/2020 03021 Therapeutic Procedure, Each 15 M inutes Completed 01/25/2020 20703 Therapeutic Procedure, Each 15 M inutes Completed 01/25/2020 15754 Therapeutic Procedure, Each 15 M inutes Completed [...] t shoulder Assessments Date Code Description Provider 07/17/2020 S46.012D [...] shoulder, subsequent encounter Moisés Mccain, PT, DPT 06/23/2020 S46.012D Strain of muscle(s) [...] shoulder, subsequent encounter Moisés Mccain PT, DPT 02/24/2020 S46.012D Strain of muscle(s) and tendon(s) of the rotator cuff of left shoulder, subsequent encounter Moisés Mccain PT, DPT 02/22/2020 S46.012D Strain of muscle(s) and tendon(s) of the rotator cuff of left shoulder, subsequent encounter Moisés Mccain PT, DPT 02/17/2020 S46.012D Strain of muscle(s) and tendon(s) of the rotator cuff of left shoulder, subsequent encounter Moisés Mccain PT, DPT 02/15/2020 S46.012D Strain of muscle(s) and tendon(s) of the rotator cuff of left shoulder, subsequent encounter Moisés Mccain, PT, DPT 02/10/2020 S46.012D Strain of muscle(s) and tendon(s) of the rotator cuff of left shoulder, subsequent encounter Moisés Mccain, PT, DPT 02/08/2020 S46.012D Strain of muscle(s) and tendon(s) of the rotator cuff of left shoulder, subsequent encounter Moisés Mccain, PT, DPT 02/04/2020 S46.012D Strain of muscle(s) and tendon(s) of the rotator cuff of left shoulder, subsequent encounter Moisés Mccain, PT, DPT 02/01/2020 S46.012D Strain of muscle(s) and tendon(s) of the rotator cuff of left shoulder, subsequent encounter Moisés Mccain, PT, DPT 01/27/2020 S46.012D Strain of muscle(s) and tendon(s) of the rotator cuff of left shoulder, subsequent encounter Moisés Mccain PT, DPT 01/25/2020 S46.012D Strain of muscle(s) and tendon(s) of the rotator cuff of left shoulder, subsequent encounter Moisés Mccain, PT, DPT Plan of Treatment Future Appointment(s):* 07/31/2020 4:30 pm - Moisés Mccain PT, DPT at Physical Therapy * 07/28/2020 4:30 pm - Moisés Mccain PT, DPT at Physical Therapy * 08/02/2020 2:30 pm - Dinh Mathews, PMonika at [place] Functional Status Description No Information Available Mental Status Description No Information Available Referrals Refer to Dr Reason for Referral Status Appt Date Alberto Padron MD PT LT SHOULDER WRITTEN AUTH FOR 12 VISITS. PASSED TO PT DEPT. LS Created [address] [place] [address] [phone] Alberto Padron MD MRI T SPINE WRITTEN AUTH FOR DX PURPOSES. PASSED TO LAURIE. LILLY 06/28/20 PER GENEVA OK TO NIC WITH AND WITHOUT CARLIE. PASSED TO GAUDENCIO S Created [address] [place] [address] [phone]
--- OUTSIDE RECORDS SUMMARY | 2020-08-23 12:02 | CCD | Continuity of Care Document ---
Author Author Samanta DACOSTA DPT Organization Unknown Address [address] [place] [address] Phone [phone] Care Team Providers Care Hospitality Coordinator Name Role Phone Ramin Walton MD AUTM [phone] Albino Yu PA-C AUTM [phone] [facility] - [phone] AUTM Problems Active Problems Provider Date Headache [...] Information Available Procedures Date Code Description Status 08/10/202091411 Re-Eval Of PT Establ ished Plan Of Care 20Mins Face To Face PT/Fam Completed 08/10/2020 90824 Therapeutic Procedure, Each 15 M inutes Completed 08/10/2020 60177 Therapeutic Procedure, Each 15 M inutes Completed 08/08/2020 31532 Therapeutic Procedure, Each 15 M inutes Completed 08/08/2020 18853 Therapeutic Procedure, Each 15 M inutes Completed 07/31/2020 38499 Therapeutic Procedure, Each 15 M inutes Completed 07/31/2020 89704 Therapeutic Procedure, Each 15 M inutes Completed 07/28/2020 10510 Therapeutic Procedure, Each 15 M inutes Completed 07/28/2020 09122 Therapeutic Procedure, Each 15 M inutes Completed 07/25/2020 09229 Therapeutic Procedure, Each 15 M inutes Completed 07/25/2020 77588 Therapeutic Procedure, Each 15 M inutes Completed 07/17/2020 54120 Therapeutic Procedure, Each 15 M inutes Completed 07/17/2020 81567 Therapeutic Procedure, Each 15 M inutes Completed 06/30/2020 62674 Therapeutic Procedure, Each 15 M inutes Completed 06/30/2020 40789 Therapeutic Procedure, Each 15 M inutes Completed 06/28/2020 44392 Physical Therapy Eval - Low Comp lexity Completed 06/28/2020 34704 Therapeutic Procedure, Each 15 M inutes Completed 06/23/2020 04581 Inject/Drain Joint/Bursa Major C ompleted 03/15/2020 99625 Inject/Drain Joint/Bursa Major C ompleted 03/15/2020 29812 X-Ray Shoulder Complete Complete d 03/09/2020 00545 Therapeutic Procedure, Each 15 M inutes Completed 03/09/2020 24706 Therapeutic Procedure, Each 15 M inutes Completed 03/07/2020 76102 Re-Eval Of PT Establ ished Plan Of Care 20Mins Face To Face PT/Fam Completed 03/07/2020 05544 Therapeutic Procedure, Each 15 M inutes Completed 03/07/2020 67555 Therapeutic Procedure, Each 15 M inutes Completed 03/02/2020 39878 Therapeutic Procedure, Each 15 M inutes Completed 03/02/2020 26045 Therapeutic Procedure, Each 15 M inutes Completed 02/24/2020 34276 Therapeutic Procedure, Each 15 M inutes Completed 02/24/2020 64838 Therapeutic Procedure, Each 15 M inutes Completed 02/24/2020 78503 Therapeutic Procedure, Each 15 M inutes Completed 02/22/2020 16524 Therapeutic Procedure, Each 15 M inutes Completed 02/22/2020 78006 Therapeutic Procedure, Each 15 M inutes Completed 02/17/2020 20812 Therapeutic Procedure, Each 15 M inutes Completed 02/17/2020 29095 Therapeutic Procedure, Each 15 M inutes Completed 02/15/2020 77222 Therapeutic Procedure, Each 15 M inutes Completed 02/15/2020 67722 Therapeutic Procedure, Each 15 M inutes Completed Medical Devices Description No Information Available Encounters Type Date Location Provider Dx Diagnosis Office Visit [facility]02[facility] S46.012D Strain of musc/tend the [...] PASSED TO PT DEPT. LS Created [address] [place] [address] [phone] Alberto Padron MD MRI T SPINE WRITTEN AUTH FOR DX PURPOSES. PASSED TO LAURIE. LILLY 06/28/20 DOMINGO BALDERAS TO NIC WITH AND WITHOUT CARLIE. PASSED TO GAUDENCIO S Created [address] [place] [address] [phone]
--- OUTSIDE RECORDS SUMMARY | 2020-08-23 12:02 | CCD ---
Continuity of Care Document (CCD) Created on: 07/28/2020 Samanta Javier External Reference #: [id number] : [id number] Sex: Female Author Author Samanta DELVALLE P.T. Organization Unknown Address [address] [place] [address] [address] [place] [address] Phone [phone] Care Team Providers Care Broke Handler Name Role Phone Ramin Walton MD AUTM [phone] Albino Yu PA-C AUTM [phone] [facility] - [phone] AUTM Problems Active Problems Provider Date Headache [...] Available Procedures Date Code Description Status 07/25/2020 36466 Therapeutic Procedure, Each 15 M inutes Completed 07/25/2020 60083 Therapeutic Procedure, Each 15 M inutes Completed 07/17/2020 38210 Therapeutic Procedure, Each 15 M inutes Completed 07/17/2020 73401 Therapeutic Procedure, Each 15 M inutes Completed 06/30/2020 50289 Therapeutic Procedure, Each 15 M inutes Completed 06/30/2020 77601 Therapeutic Procedure, Each 15 M inutes Completed 06/28/2020 69929 Physical Therapy Eval - Low Comp lexity Completed 06/28/202037593 Therapeutic Procedure, Each 15 M inutes Completed 06/23/2020 94297 Inject/Drain Joint/Bursa Major C ompleted 03/15/2020 93661 Inject/Drain Joint/Bursa Major C ompleted 03/15/2020 28996 X-Ray Shoulder Complete Complete d 03/09/2020 47104 Therapeutic Procedure, Each 15 M inutes Completed 03/09/2020 08545 Therapeutic Procedure, Each 15 M inutes Completed 03/07/2020 49850 Re-Eval Of PT Establ ished Plan Of Care 20Mins Face To Face PT/Fam Completed 03/07/2020 06973 Therapeutic Procedure, Each 15 M inutes Completed 03/07/2020 56260 Therapeutic Procedure, Each 15 M inutes Completed 03/02/2020 48278 Therapeutic Procedure, Each 15 M inutes Completed 03/02/2020 21855 Therapeutic Procedure, Each 15 M inutes Completed 02/24/2020 95706 Therapeutic Procedure, Each 15 M inutes Completed 02/24/2020 51546 Therapeutic Procedure, Each 15 M inutes Completed 02/24/2020 85683 Therapeutic Procedure, Each 15 M inutes Completed 02/22/2020 85010 Therapeutic Procedure, Each 15 M inutes Completed 02/22/2020 77023 Therapeutic Procedure, Each 15 M inutes Completed 02/17/2020 54030 Therapeutic Procedure, Each 15 M inutes Completed 02/17/2020 93084 Therapeutic Procedure, Each 15 M inutes Completed 02/15/2020 03915 Therapeutic Procedure, Each 15 M inutes Completed 02/15/2020 48946 Therapeutic Procedure, Each 15 M inutes Completed 02/10/2020 43734 Therapeutic Procedure, Each 15 M inutes Completed 02/10/2020 94164 Therapeutic Procedure, Each 15 M inutes Completed 02/08/2020 35545 Re-Eval Of PT Establ ished Plan Of Care 20Mins Face To Face PT/Fam Completed 02/08/2020 76358 Therapeutic Procedure, Each 15 M inutes Completed 02/08/2020 47177 Therapeutic Procedure, Each 15 M inutes Completed 02/04/2020 82325 Therapeutic Procedure, Each 15 M inutes Completed 02/04/2020 60028 Therapeutic Procedure, Each 15 M inutes Completed 02/01/2020 28552 Therapeutic Procedure, Each 15 M inutes Completed 02/01/2020 98091 Therapeutic Procedure, Each 15 M inutes Completed [...] shoulder, subsequent encounter Moisés Mccain PT, DPT 03/02/2020 S46.012D Strain of muscle(s) and tendon(s) of the rotator cuff of left shoulder, subsequent encounter Moisés Mccain PT, DPT 02/24/2020 S46.012D Strain of muscle(s) and tendon(s) of the rotator cuff of left shoulder, subsequent encounter oMisés Mccain PT, DPT 02/22/2020 S46.012D Strain of [...] 08/02/2020 2:30 pm - [facility] [place] Functional Status Description No Information Available Mental Status Description No Information Available Referrals Refer to Dr Reason for Referral Status Appt Date Alberto Padron MD PT LT SHOULDER WRITTEN AUTH FOR 12 VISITS. PASSED TO PT DEPT. LS Created [address] [place] [address] [phone] Alberto Padron MD MRI T SPINE WRITTEN AUTH FOR DX PURPOSES. PASSED TO LAURIE. LILLY 06/28/20 DOMINGO BALDERAS TO NIC WITH AND WITHOUT CARLIE. PASSED TO GAUDENCIO S Created [address] [place] [address] [phone]
--- OUTSIDE RECORDS SUMMARY | 2020-08-23 12:02 | CCD | Continuity of Care Document ---
Author Author Samanta PADRON MD Organization Unknown Address [address] [place] [address] Phone [phone] Care Team Providers Care Oncology Nurse Navigator Name Role Phone Ramin Walton MD AUTM [phone] Albino Yu PA-C AUTM [phone] [facility] - [phone] AUTM Problems Active Problems Provider Date Headache [...] Information Available Procedures Date Code Description Status 06/30/2020 95197 Therapeutic Procedure, Each 15 M inutes Completed 06/30/2020 56590 Therapeutic Procedure, Each 15 M inutes Completed 06/28/2020 03176 Physical Therapy Eval - Low Comp lexity Completed 06/28/2020 01264 Therapeutic Procedure, Each 15 M inutes Completed 06/23/202096784 Inject/Drain Joint/Bursa Major C ompleted 03/15/2020 09051 X-Ray Shoulder Complete Complete d 03/15/202033939 Inject/Drain Joint/Bursa Major C ompleted 03/09/2020 37783 Therapeutic Procedure, Each 15 M inutes Completed 03/09/2020 98467 Therapeutic Procedure, Each 15 M inutes Completed 03/07/2020 73215 Therapeutic Procedure, Each 15 M inutes Completed 03/07/2020 21188 Therapeutic Procedure, Each 15 M inutes Completed 03/07/2020 17738 Re-Eval Of PT Establ ished Plan Of Care 20Mins Face To Face PT/Fam Completed 03/02/2020 69323 Therapeutic Procedure, Each 15 M inutes Completed 03/02/2020 40063 Therapeutic Procedure, Each 15 M inutes Completed 02/24/2020 20662 Therapeutic Procedure, Each 15 M inutes Completed 02/24/2020 44480 Therapeutic Procedure, Each 15 M inutes Completed 02/24/2020 63660 Therapeutic Procedure, Each 15 M inutes Completed 02/22/2020 28595 Therapeutic Procedure, Each 15 M inutes Completed 02/22/2020 21816 Therapeutic Procedure, Each 15 M inutes Completed 02/17/2020 33969 Therapeutic Procedure, Each 15 M inutes Completed 02/17/2020 73147 Therapeutic Procedure, Each 15 M inutes Completed 02/15/2020 13299 Therapeutic Procedure, Each 15 M inutes Completed 02/15/2020 02410 Therapeutic Procedure, Each 15 M inutes Completed 02/10/2020 34764 Therapeutic Procedure, Each 15 M inutes Completed 02/10/2020 87656 Therapeutic Procedure, Each 15 M inutes Completed 02/08/2020 55297 Re-Eval Of PT Establ ished Plan Of Care 20Mins Face To Face PT/Fam Completed 02/08/2020 75633 Therapeutic Procedure, Each 15 M inutes Completed 02/08/2020 22623 Therapeutic Procedure, Each 15 M inutes Completed 02/04/2020 79507 Therapeutic Procedure, Each 15 M inutes Completed 02/04/2020 81103 Therapeutic Procedure, Each 15 M inutes Completed 02/01/2020 43300 Therapeutic Procedure, Each 15 M inutes Completed 02/01/2020 39586 Therapeutic Procedure, Each 15 M inutes Completed 01/27/2020 00796 Therapeutic Procedure, Each 15 M inutes Completed 01/27/2020 01196 Therapeutic Procedure, Each 15 M inutes Completed 01/25/2020 16871 Therapeutic Procedure, Each 15 M inutes Completed 01/25/2020 46568 Therapeutic Procedure, Each 15 M inutes Completed 01/21/2020 57721 Therapeutic Procedure, Each 15 M inutes Completed 01/21/2020 37460 Therapeutic Procedure, Each 15 M inutes Completed 01/13/2020 77509 Therapeutic Procedure, Each 15 M inutes Completed 01/13/2020 34083 Therapeutic Procedure, Each 15 M inutes Completed 01/11/2020 43224 Physical Therapy Eval - Low Comp lexity Completed Medical Devices Description No Information Available [...] shoulder, subs Assessments Date Code Description Provider 06/30/2020 S46.012D Strain of muscle(s) and tendon(s) of the rotator cuff of left shoulder, subsequent encounter Heron Delvalle P.T. 06/30/2020 M75.41 Impingement syndrome of right sh wenceslaolder Heron Delvalle P.T. 06/28/2020 S46.012D Strain of muscle(s) and tendon(s) of the rotator cuff of left shoulder, subsequent encounter Moisés Mccain PT, DPT 06/28/2020 M75.41 Impingement syndrome of right sh oulder Moisés Mccain PT, DPT 06/23/2020 S46.012D Strain of muscle(s) and tendon(s) of the rotator cuff of left shoulder, subsequent encounter Alberto Padron MD 06/23/2020 M75.41 Impingement syndrome of right sh wenceslaolder Alberto Padron MD 04/27/2020 S46.012D Strain of muscle(s) and tendon(s) of the rotator cuff of left shoulder, subsequent encounter Alberto Padron MD 04/27/2020 M75.41 Impingement syndrome of right sh wenceslaolder Alberto Padron MD 04/27/2020 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 Alberto Padron MD 03/15/2020 S46.012D Strain of muscle(s) and tendon(s) of the rotator cuff of left shoulder, subsequent encounter Alberto Padron MD 03/15/2020 M75.41 Impingement syndrome of right wenceslaoer Alberto Padron MD 03/09/2020 S46.012D Strain of muscle(s) [...] shoulder, subsequent encounter Moisés Mccain PT, DPT 02/10/2020 S46.012D Strain of muscle(s) and tendon(s) of the rotator cuff of left shoulder, subsequent encounter Moisés Mccain PT, DPT 02/08/2020 S46.012D Strain of muscle(s) and tendon(s) of the rotator cuff of left shoulder, subsequent encounter Moisés Mccain PT, DPT 02/04/2020 S46.012D Strain of muscle(s) and tendon(s) of the rotator cuff of left shoulder, subsequent encounter Moisés Mccain PT, DPT 02/01/2020 S46.012D Strain of muscle(s) and tendon(s) of the rotator cuff of left shoulder, subsequent encounter Moisés Mccain PT, DPT 01/27/2020 S46.012D Strain of muscle(s) and tendon(s) of the rotator cuff of left shoulder, subsequent encounter Moisés Mccain PT, DPT 01/25/2020 S46.012D Strain of muscle(s) and tendon(s) of the rotator cuff of left shoulder, subsequent encounter Moisés Mccain PT, DPT 01/24/2020 S46.012D Strain of muscle(s) and tendon(s) of the rotator cuff of left shoulder, subsequent encounter Alberto Padron MD 01/21/2020 S46.012D Strain of muscle(s) and tendon(s) of the rotator cuff of left shoulder, subsequent encounter Moisés Mccain PT, DPT 01/13/2020 S46.012D Strain of muscle(s) and tendon(s) of the rotator cuff of left shoulder, subsequent encounter Moisés Mccain PT, DPT 01/11/2020 S46.012D Strain of muscle(s) and tendon(s) of the rotator cuff of left shoulder, subsequent encounter Moisés Mccain, PT, DPT Plan of Treatment Future Appointment(s):* 08/02/2020 2:30 pm - [facility] [place] * 07/17/2020 3:15 pm - [facility] [place] Functional Status Description No Information Available Mental Status Description No Information Available Referrals Refer to Reason for Referral Status Appt Date Alberto Padron MD PT LT SHOULDER WRITTEN AUTH FOR 12 VISITS. PASSED TO PT DEPT. LS Created [address] [place] [address] [phone] Alberto Padron MD MRI T SPINE WRITTEN AUTH FOR DX PURPOSES. PASSED TO LAURIE. LILLY 06/28/20 PER GENEVA OK TO NIC WITH AND WITHOUT CARLIE. PASSED TO GAUDENCIO S Created [address] [place] [address] [phone]
--- OUTSIDE RECORDS SUMMARY | 2020-08-23 12:02 | CCD | Continuity of Care Document ---
Author Author Samanta DACOSTA DPT Organization Unknown Address [address] [place] [address] Phone [phone] Care Team Providers Care Community Relations Director Name Role Phone Ramin Walton MD AUTM [phone] Albino Yu PA-C AUTM [phone] [facility] - [phone] AUTM Problems Active Problems Provider Date Headache [...] Information Available Procedures Date Code Description Status 08/08/2020 94066 Therapeutic Procedure, Each 15 M inutes Completed 08/08/2020 67459 Therapeutic Procedure, Each 15 M inutes Completed 07/31/2020 34972 Therapeutic Procedure, Each 15 M inutes Completed 07/31/2020 39402 Therapeutic Procedure, Each 15 M inutes Completed 07/28/2020 05353 Therapeutic Procedure, Each 15 M inutes Completed 07/28/2020 38675 Therapeutic Procedure, Each 15 M inutes Completed 07/25/2020 07505 Therapeutic Procedure, Each 15 M inutes Completed 07/25/2020 90836 Therapeutic Procedure, Each 15 M inutes Completed 07/17/2020 70987 Therapeutic Procedure, Each 15 M inutes Completed 07/17/2020 35271 Therapeutic Procedure, Each 15 M inutes Completed 06/30/2020 55960 Therapeutic Procedure, Each 15 M inutes Completed 06/30/2020 42003 Therapeutic Procedure, Each 15 M inutes Completed 06/28/2020 73482 Physical Therapy Eval - Low Comp lexity Completed 06/28/202069615 Therapeutic Procedure, Each 15 M inutes Completed 06/23/2020 80415 Inject/Drain Joint/Bursa Major C ompleted 03/15/2020 96202 X-Ray Shoulder Complete Complete d 03/15/202078989 Inject/Drain Joint/Bursa Major C ompleted 03/09/2020 65320 Therapeutic Procedure, Each 15 M inutes Completed 03/09/2020 77699 Therapeutic Procedure, Each 15 M inutes Completed 03/07/2020 47564 Re-Eval Of PT Establ ished Plan Of Care 20Mins Face To Face PT/Fam Completed 03/07/2020 91467 Therapeutic Procedure, Each 15 M inutes Completed 03/07/2020 76600 Therapeutic Procedure, Each 15 M inutes Completed 03/02/2020 83003 Therapeutic Procedure, Each 15 M inutes Completed 03/02/2020 98820 Therapeutic Procedure, Each 15 M inutes Completed 02/24/2020 19465 Therapeutic Procedure, Each 15 M inutes Completed 02/24/2020 73823 Therapeutic Procedure, Each 15 M inutes Completed 02/24/2020 65049 Therapeutic Procedure, Each 15 M inutes Completed 02/22/2020 78127 Therapeutic Procedure, Each 15 M inutes Completed 02/22/2020 27130 Therapeutic Procedure, Each 15 M inutes Completed 02/17/2020 69333 Therapeutic Procedure, Each 15 M inutes Completed 02/17/2020 07048 Therapeutic Procedure, Each 15 M inutes Completed 02/15/2020 25754 Therapeutic Procedure, Each 15 M inutes Completed 02/15/2020 28626 Therapeutic Procedure, Each 15 M inutes Completed 02/10/2020 46812 Therapeutic Procedure, Each 15 M inutes Completed 02/10/2020 58489 Therapeutic Procedure, Each 15 M inutes Completed [...] t shoulder Assessments Date Code Description Provider 08/08/2020 S46.012D Strain of muscle(s) and tendon(s) of the rotator cuff of left shoulder, subsequent encounter Patricia Moeller, MSPT 08/02/2020 S46.012D Strain of muscle(s) and tendon(s) of the rotator cuff of left shoulder, subsequent encounter Dinh Mathews PMonika 07/31/2020 S46.012D Strain of muscle(s) and tendon(s) of the rotator cuff of left shoulder, subsequent encounter Moisés Dacosta, PT, DPT 07/28/2020 S46.012D Strain of muscle(s) and tendon(s) of the rotator cuff of left shoulder, subsequent encounter Moisés Dacosta, PT, DPT 07/25/2020 S46.012D Strain of muscle(s) and tendon(s) of the rotator cuff of left shoulder, subsequent encounter Heron Delvalle PLuis FernandoTLuis Fernando 07/17/2020 S46.012D Strain of muscle(s) and tendon(s) [...] rotator cuff of left shoulder, subsequent encounter Alebrto Padron MD 04/27/2020 M75.41 Impingement syndrome of [...] Moisés Dacosta, PT, DPT Plan of Treatment No Information Available Functional Status Description No Information Available Mental Status Description No Information Available Referrals Refer to Reason for Referral Status Appt Date Alberto Padron MD PT LT SHOULDER WRITTEN AUTH FOR 12 VISITS. PASSED TO PT DEPT. LS Created [address] [place] [address] [phone] Alberto Padron MD MRI T SPINE WRITTEN AUTH FOR DX PURPOSES. PASSED TO LAURIE. LILLY 06/28/20 PER GENEVA BALDREAS TO NIC WITH AND WITHOUT CARLIE. PASSED TO GAUDENCIO S Created [address] [place] [address] [phone]
--- OUTSIDE RECORDS SUMMARY | 2020-08-23 12:03 | CCD | Continuity of Care Document ---
Author Author Samanta MARTIN P.T. Organization Unknown Address [address] [place] [address] [address] [place] [address] Phone [phone] Care Team Providers Care Radar Tester Name Role Phone Ramin Walton MD AUTM [phone] Albino Yu PA-C AUTM [phone] Problems Active Problems Provider Date Headache Onset: [...] Information Available Procedures Date Code Description Status 06/28/2020 94185 Physical Therapy Eval - Low Comp lexity Completed 06/28/2020 58877 Therapeutic Procedure, Each 15 M inutes Completed 06/23/2020 Inject/Drain Joint/Bursa Major C ompleted 03/15/2020 69830 X-Ray Shoulder Complete Complete d 03/15/2020 Inject/Drain Joint/Bursa Major C ompleted 03/09/2020 63162 Therapeutic Procedure, Each 15 M inutes Completed 03/09/2020 98055 Therapeutic Procedure, Each 15 M inutes Completed 03/07/2020 69507 Re-Eval Of PT Establ ished Plan Of Care 20Mins Face To Face PT/Fam Completed 03/07/2020 91158 Therapeutic Procedure, Each 15 M inutes Completed 03/07/2020 15306 Therapeutic Procedure, Each 15 M inutes Completed 03/02/2020 59021 Therapeutic Procedure, Each 15 M inutes Completed 03/02/2020 83926 Therapeutic Procedure, Each 15 M inutes Completed 02/24/2020 51523 Therapeutic Procedure, Each 15 M inutes Completed 02/24/2020 23598 Therapeutic Procedure, Each 15 M inutes Completed 02/24/2020 18554 Therapeutic Procedure, Each 15 M inutes Completed 02/22/2020 16146 Therapeutic Procedure, Each 15 M inutes Completed 02/22/2020 42066 Therapeutic Procedure, Each 15 M inutes Completed 02/17/2020 67392 Therapeutic Procedure, Each 15 M inutes Completed 02/17/2020 61029 Therapeutic Procedure, Each 15 M inutes Completed 02/15/2020 49843 Therapeutic Procedure, Each 15 M inutes Completed 02/15/2020 26798 Therapeutic Procedure, Each 15 M inutes Completed 02/10/2020 01108 Therapeutic Procedure, Each 15 M inutes Completed 02/10/2020 76210 Therapeutic Procedure, Each 15 M inutes Completed 02/08/2020 94700 Re-Eval Of PT Establ ished Plan Of Care 20Mins Face To Face PT/Fam Completed 02/08/2020 87874 Therapeutic Procedure, Each 15 M inutes Completed 02/08/2020 68650 Therapeutic Procedure, Each 15 M inutes Completed 02/04/2020 72297 Therapeutic Procedure, Each 15 M inutes Completed 02/04/2020 66743 Therapeutic Procedure, Each 15 M inutes Completed 02/01/2020 94697 Therapeutic Procedure, Each 15 M inutes Completed 02/01/2020 88022 Therapeutic Procedure, Each 15 M inutes Completed 01/27/2020 15116 Therapeutic Procedure, Each 15 M inutes Completed 01/27/2020 24304 Therapeutic Procedure, Each 15 M inutes Completed 01/25/2020 72586 Therapeutic Procedure, Each 15 M inutes Completed 01/25/2020 18531 Therapeutic Procedure, Each 15 M inutes Completed 01/21/2020 70049 Therapeutic Procedure, Each 15 M inutes Completed 01/21/2020 56207 Therapeutic Procedure, Each 15 M inutes Completed 01/13/2020 15563 Therapeutic Procedure, Each 15 M inutes Completed 01/13/2020 24853 Therapeutic Procedure, Each 15 M inutes Completed 01/11/2020 36459 Physical Therapy Eval - Low Comp lexity [...] shoulder, subs Assessments Date Code Description Provider 06/28/2020 S46.012D Strain of muscle(s) and tendon(s) of the rotator cuff of left shoulder, subsequent encounter Moisés Mccain, PT, DPT 06/28/2020 M75.41 Impingement syndrome of right sh ouer Moisés Mccain, PT, DPT 06/23/2020 S46.012D Strain [...] shoulder, subsequent encounter Moisés Mccain PT, DPT Plan of Treatment Future Appointment(s):* 07/05/2020 2:30 pm - Mois[facility] Mccain [facility] * 07/17/2020 3:15 pm - [facility] [place] Functional Status Description No Information Available Mental Status Description No Information Available Referrals Refer to Dr Reason for Referral Status Appt Date Alberto Padron MD PT LT SHOULDER WRITTEN AUTH FOR 12 VISITS. PASSED TO PT DEPT. LS Created [address] [place] [address] [phone] Alberto Padron MD MRI T SPINE WRITTEN AUTH FOR DX PURPOSES. PASSED TO LAURIE. LILLY 06/28/20 PER GENEVA OK TO NIC WITH AND WITHOUT CARLIE. PASSED TO GAUDENCIO S Created [address] [place] [address] [phone]
--- OUTSIDE RECORDS SUMMARY | 2020-08-23 12:03 | CCD ---
Author Author [facility] Address Unknown Phone Unavailable Care Team Providers Care Station Cook Name Role Phone OZUNA, CHRIS LENNY RPA-C Unavailable Unavailable OZUNA, CHRIS LENNY RPA-C Unavailable Unavailable OZUNA, CHRIS LENNY RPA-C Unavailable Unavailable OZUNA, CHRIS LENNY RPA-C Unavailable Unavailable OZUNA, CHRIS LENNY RPA-C Unavailable Unavailable OZUNA, CHRIS LENNY RPA-C Unavailable Unavailable OZUNA, CHRIS LENNY RPA-C Unavailable Unavailable OZUNA, CHRIS LENNY RPA-C Unavailable Unavailable OZUNA, CHRIS LENNY RPA-C Unavailable Unavailable OZUNA, CHRIS LENNY RPA-C Unavailable Unavailable OZUNA, CHRIS LENNY RPA-C Unavailable Unavailable OZUNA, CHRIS LENNY RPA-C Unavailable Unavailable OZUNA, CHRIS LENNY RPA-C Unavailable Unavailable OZUNA, CHRIS LENNY RPA-C Unavailable Unavailable OZUNA, CHRIS LENNY RPA-C Unavailable Unavailable OZUNA, CHRIS LENNY RPA-C Unavailable Unavailable OZUNA, CHRIS LENNY RPA-C Unavailable Unavailable OZUNA, CHRIS LENNY RPA-C Unavailable Unavailable OZUNA, CHRIS LENNY RPA-C Unavailable Unavailable OZUNA, CHRSI LENNY RPA-C Unavailable Unavailable OZUNA, CHRIS LENNY RPA-C Unavailable Unavailable OZUNA, CHRIS LENNY RPA-C Unavailable Unavailable OZUNA, CHRIS LENNY RPA-C Unavailable Unavailable OZUNA, CHRIS LENNY RPA-C Unavailable Unavailable OZUNA, CHRIS LENNY RPA-C Unavailable Unavailable OZUNA, CHRIS LENNY RPA-C Unavailable Unavailable OZUNA, CHRIS LENNY RPA-C Unavailable Unavailable OZUNA, CHRIS LENNY RPA-C Unavailable Unavailable OZUNA, CHRIS LENNY RPA-C Unavailable Unavailable OZUNA, CHRIS LENNY RPA-C Unavailable Unavailable OZUNA, CHRIS LENNY RPA-C Unavailable Unavailable OZUNA, CHRIS LENNY RPA-C Unavailable Unavailable OZUNA, CHRIS LENNY RPA-C Unavailable Unavailable OZUNA, CHRIS LENNY RPA-C Unavailable Unavailable OZUNA, CRHIS LENNY RPA-C Unavailable Unavailable OZUNA, CHRIS LENNY RPA-C Unavailable Unavailable OZUNA, CHRIS LENNY RPA-C Unavailable Unavailable OZUNA, CHRIS LENNY RPA-C Unavailable Unavailable MCELHERAN, DIXIE PA Unavailable Unavailable MCELHERAN, DIXIE PA Unavailable Unavailable MCELHERAN, DIXIE PA Unavailable Unavailable MCELHERAN, DIXIE PA Unavailable Unavailable MCELHERAN, DIXIE PA Unavailable Unavailable MCELHERAN, DIXIE PA Unavailable Unavailable MCELHERAN, DIXIE PA Unavailable Unavailable MCELHERAN, DIXIE PA Unavailable Unavailable MCELHERAN, DIXIE PA Unavailable Unavailable MCELHERAN, DIXIE PA Unavailable Unavailable MCELHERAN, DIXIE PA Unavailable Unavailable MCELHERAN, DIXIE PA Unavailable Unavailable MCELHERAN, DIXIE PA Unavailable Unavailable MCELHERAN, DIXIE PA Unavailable Unavailable MCELHERAN, DIXIE PA Unavailable Unavailable MCELHERAN, DIXIE PA Unavailable Unavailable MCELHERAN, DIXEI PA Unavailable Unavailable MCELHERAN, DIXIE PA Unavailable Unavailable MCELHERAN, DIXIE PA Unavailable Unavailable MCELHERAN, DIXIE PA Unavailable Unavailable MCELHERAN, DIXIE PA Unavailable Unavailable MCELHERAN, DIXIE PA Unavailable Unavailable MCELHERAN, DIXIE PA Unavailable Unavailable MCELHERAN, DIXIE PA Unavailable Unavailable MCELHERAN, DIXIE PA Unavailable Unavailable MCELHERAN, DIXIE PA Unavailable Unavailable MCELHERAN, DIXIE PA Unavailable Unavailable MCELHERAN, DIXIE PA Unavailable Unavailable Yu, M Barratt PA Unavailable Unavailable Yu, M Barratt PA Unavailable Unavailable Yu, M Barratt PA Unavailable Unavailable Yu, M Barratt PA Unavailable Unavailable Yu, M Barratt PA Unavailable Unavailable Yu, M Barratt PA Unavailable Unavailable Yu, M Barratt PA Unavailable Unavailable Yu, M Barratt PA Unavailable Unavailable Yu, M Barratt PA Unavailable Unavailable Yu, M Barratt PA Unavailable Unavailable Yu, M Barratt PA Unavailable Unavailable Yu, M Barratt PA Unavailable Unavailable Yu, M Barratt PA Unavailable Unavailable Yu, M Barratt PA Unavailable Unavailable Yu, M Barratt PA Unavailable Unavailable Yu, M Barratt PA Unavailable Unavailable Yu, M Barratt PA Unavailable Unavailable Yu, M Barratt PA Unavailable Unavailable Yu, M Barratt PA Unavailable Unavailable Yu, M Barratt PA Unavailable Unavailable Yu, M Barratt PA Unavailable Unavailable Yu, M Barratt PA Unavailable Unavailable Yu, M Barratt PA Unavailable Unavailable Yu, M Barratt PA Unavailable Unavailable Yu, M Barratt PA Unavailable Unavailable Yu, M Barratt PA Unavailable Unavailable BEE PADRON MD Unavailable Unavailable BEE PADRON MD Unavailable Unavailable BEE PADRON MD Unavailable Unavailable BEE PADRON MD Unavailable Unavailable BEE PADRON MD Unavailable Unavailable BEE PADRON MD Unavailable Unavailable BEE PADRON MD Unavailable Unavailable BEE PADRON MD Unavailable Unavailable BEE PADRON MD Unavailable Unavailable BEE PADRON MD Unavailable Unavailable BEE PADRON MD Unavailable Unavailable EBE PADRON MD Unavailable Unavailable BEE PADRON MD Unavailable Unavailable BEE PADRON MD Unavailable Unavailable BEE PADRON MD Unavailable Unavailable BEE PADRON MD Unavailable Unavailable BEE PADRON MD Unavailable Unavailable BEE PADRON MD Unavailable Unavailable BEE PADRON MD Unavailable Unavailable BEE PADRON MD Unavailable Unavailable BEE PADRON MD Unavailable Unavailable BEE PADRON MD Unavailable Unavailable BEE PADRON MD Unavailable Unavailable BEE PADRON MD Unavailable Unavailable BEE PADRON MD Unavailable Unavailable MARKWITH, BEE DE LEON Unavailable Unavailable MARKWITH, BEE DE LEON Unavailable Unavailable MARKWITH, BEE DE LEON Unavailable Unavailable MARKWITH, BEE DE LEON Unavailable Unavailable MARKWITH, BEE DE LEON Unavailable Unavailable MARKWITH, BEE DE LEON Unavailable Unavailable MARKWITH, BEE DE LEON Unavailable Unavailable MARKWITH, BEE DE LEON Unavailable Unavailable Isael, Katarzyna FOSTER CARE WORKER FOSTER CARE WORKER Unavailable Unavailable [facility], RFROST OZUNA PA LENNY Unavailable Unavailable MARKWITH, BEE DE LEON Unavailable Unavailable MARKWITH, BEE DE LEON Unavailable Unavailable MARKWITH, BEE DE LEON Unavailable Unavailable MARKWITH, BEE DE LEON Unavailable Unavailable MARKWITH, BEE DE LEON Unavailable Unavailable MARKWITH, BEE DE LEON Unavailable Unavailable MARKWITH, BEE DE LEON Unavailable Unavailable MARKWITH, BEE DE LEON Unavailable Unavailable MARKWITH, BEE DE LEON Unavailable Unavailable MARKWITH, BEE DE LEON Unavailable Unavailable MARKWITH, BEE DE LEON Unavailable Unavailable MARKWITH, BEE DE LEON Unavailable Unavailable MARKWITH, BEE DE LEON Unavailable Unavailable MARKWITH, BEE DE LEON Unavailable Unavailable MARKWITH, BEE DE LEON Unavailable Unavailable MARKWITH, BEE DE LEON Unavailable Unavailable MARKWITH, BEE DE LEON Unavailable Unavailable MARKWITH, BEE DE LEON Unavailable Unavailable MARKWITH, BEE DE LEON Unavailable Unavailable MARKWITH, BEE DE LEON Unavailable Unavailable MARKWITH, BEE DE LEON Unavailable Unavailable MARKWITH, BEE DE LEON Unavailable Unavailable MARKWITH, BEE DE LEON Unavailable Unavailable MARKWITH, BEE DE LEON Unavailable Unavailable MARKWITH, BEE DE LEON Unavailable Unavailable MARKWITH, BEE DE LEON Unavailable Unavailable MARKWITH, BEE DE LEON Unavailable Unavailable MARKWITH, BEE DE LEON Unavailable Unavailable MARKWITH, BEE DE LEON Unavailable Unavailable MARKWITH, BEE DE LEON Unavailable Unavailable MARKWITH, BEE DE LEON Unavailable Unavailable MARKWITH, BEE DE LEON Unavailable Unavailable MARKWITH, BEE DE LEON Unavailable Unavailable Re-disclosure Warning The records that you are about to access may contain information from federally-assisted alcohol or drug abuse programs. If such information is present, then the following federally mandated warning applies: This information has been disclosed to you from records protected by federal confidentiality rules (42 CFR part 2). The federal rules prohibit you from making any further disclosure of this information unless further disclosure is expressly permitted by the written consent of the person to whom it pertains or as otherwise permitted by 42 CFR part 2. A general authorization for the release of medical or other information is NOT sufficient for this purpose. The Federal rules restrict any use of the information to criminally investigate or prosecute any alcohol or drug abuse patient.The records that you are about to access may contain highly sensitive health information, the redisclosure of which is protected by Article 27-F of the [facility] Public Health law. If you continue you may have access to information: Regarding HIV / AIDS; Provided by facilities licensed or operated by the [facility] Office of Mental Health; or Provided by the [facility] Office for People With Developmental Disabilities. If such information is present, then the following [facility] mandated warning applies: This information has been disclosed to you from confidential records which are protected by state law. State law prohibits you from making any further disclosure of this information without the specific written consent of the person to whom it pertains, or as otherwise permitted by law. Any unauthorized further disclosure in violation of state law may result in a fine or prison sentence or both. A general authorization for the release of medical or other information is NOT sufficient authorization for further disc losure. Family History Family Member Name Family Member Gender Family Member Status Date o f Status Description Data Source(s) Unknown Unknown Problem [facility] ([facility]) Unknown Female Problem [facility] ([facility] ) Encounters Encounter Providers Location Date Indications Data Source(s ) Outpatient Attender: DIXIE ONEAL Physical Therapy 08/02/2020 01:30:00 PM EST [facility] ([facility]) Outpatient Attender: BEE PADRON MD Physical Therapy 01:30:00 PM EST [facility] ([facility]) [facility]: [facility]12 05:40:01 PM EDT [facility] Outpatient Attender: LENNY MILLER [facility] 05/02/2020 05:40:01 PM EDT [facility] Outpatient Attender: BEE PADRON MD Physical Therapy 11:15:00 AM EDT [facility] ([facility]) [facility] 03/13 01:23:01 PM EDT [facility] Outpatient Attender: KADIE OROZCO [facility] 03/13 09:14:01 AM EDT [facility] Outpatient Attender: LENNY MILLER [facility] 04/10/2020 09:14:00 AM EDT [facility] Outpatient Attender: CRYSTALPERRY [facility] 03/11 12:47:03 PM EDT [facility] Outpatient Attender: BEE PADRON MD Physical Therapy 01:00:00 PM EDT [facility] ([facility]) Outpatient Attender: KADIE OZUNA [facility] 02/10 09:58:01 AM EDT [facility] Outpatient Attender: LENNY OZUNA RPA-C FP 03/10/2020 08:47:04 AM EDT [facility] Outpatient Attender: LENNY OZUNA RPA-C FP 03/09/2020 02:57:00 PM EDT [facility] Outpatient Attender: LENNY OZUNA RPA-C FP 03/09/2020 01:58:00 PM EDT [facility] Outpatient Attender: LENNY OZUNA RPA-C FP 03/09/2020 11:08:01 AM EDT [facility] Outpatient Attender: LENNY OZUNA RPA-C FP 02/29/2020 09:35:01 AM EDT [facility] Outpatient Attender: JOANNA CHAVEZ 02/29/2020 09:20:02 A M EDT [facility] Office Visit Attender: BEE PADRON MD Physical Therapy 10:30:00 AM EDT [facility] ([facility]) Office Visit Attender: BEE PADRON MD Physical Therapy 10:45:00 AM EDT [facility] ([facility]) Outpatient Attender: BEE PADRON MD Physical Therapy 10:30:00 AM EST [facility] ([facility]) Outpatient Attender: BEE PADRON MD Physical Therapy 02:15:00 PM EST [facility] ([facility]) Outpatient Referrer: BEE PADRON MD 08/17/2019 09:21:0 0 AM EST [facility] Outpatient Referrer: BEE PADRON MD 08/16/2019 08:59:0 0 AM EST [facility] Outpatient Referrer: BEE PADRON MD 07/29/2019 09:07:0 0 AM EST [facility] Outpatient Referrer: Albino ONEAL 07/29/2019 09:04:0 0 AM EST [facility] Medications Medication Brand Name Start Date Product Form Dose Route Admi nistrative Instructions Pharmacy Instructions Status Indications Reaction Description Data Source(s) Morphine Sulfate 15 MG Oral Tablet Morphine Sulfate 12/03/2019 1 2:00:00 AM EDT active [facility] ( [facility]) Morphine Sulfate 15 MG Extended Release Oral Tablet [MS Cont in] MS Contin 12/03/2019 12:00:00 AM EDT ORAL active [facility] ([facility]) Ibuprofen 600 MG Oral Tablet [Ibu] Ibu 12/03/2019 12:00:00 AM EDT ORAL active [facility] ([facility]) No Active Medications 09/14/2019 12:00:00 AM EST completed [facility] ([facility]) Methylprednisolone 4 MG Oral Tablet [Medrol] Medrol 12:00:00 AM EST completed [facility] ([facility]) Morphine Sulfate 15 MG Oral Tablet Morphine Sulfate 04/08/2019 1 2:00:00 AM EDT ORAL completed [facility] ([facility]) Oxycodone Hydrochloride 5 MG Oral Tablet Oxycodone HCL 04/08/2019 12:00:00 AM EDT completed [facility] ([facility]) Insurance Providers Payer name Policy type / Coverage type Policy ID Covered libertarian ID Covered libertarian's relationship to boykin Policy [place] Plan Information ANKITAEDNY [id number] SP [id number] [facility] COMMUNITY PLAN MCDO [id number] SP [id number] ESIS [place] CLAIMS O [id number] S [id number] Managed Care - [facility] Community Plan P [id number] S [id number] Medicaid S [id number] S [id number] Managed Care - [facility] Community Plan P [id number] S [id number] Medicaid S [id number] S [id number] HRSA UNINSURED FUND [id number] SP [id number] [employer] [place] CLAIM[facility] [id number] SP [id number] SELF PAY ONLY [id number] SP [id number] [employer] [place] CLAIMS [id number] SP [id number] MEDICAID [id number] SP [id number] [facility] () Workers Compensation [id number] Self [id number] [employer] () Workers Compensation [id number] Self [id number] [place] Medig[place] Part B [id number] Self [id number] Managed Care - Community Plan [facility] P [id number] S [id number] [facility] Care Community Health Plan [facility] P [id number] S [id number] [facility] () Workers Compensation [id number] Self [id number] [facility] O [id number] S [id number] Managed Care - Community Plan [facility] P [id number] S [id number] Medicaid S [id number] S [id number] [facility] Workers Compensation [id number] Self [id number] Medicaid P [id number] S [id number] [facility] [id number] SP [id number] ONE [employer] CARE MANAGEMENT O [id number] S [id number] [facility] () Workers Compensation Self [employer] O [id number] S [id number] [facility] O [id number] S [id number] [employer] O [id number] S [id number] [place] [employer] Workers Compensation Self [facility] [id number] SP [id number] [employer] [facility] [id number] SP [id number] OTHER WORKERS COMPENSATI P [id number] S [id number] OTHER WORKERS COMPENSATION [id number] SP [id number] [facility] PLUS [id number] SP [id number] SELF PAY UNAVAILABLE SP UNAVAILA BLE MEDICAID [id number] SP [id number] MEDICAID [id number] SP [id number] Problems, Conditions, and Diagnoses Code Display Name Description Problem Type Effective Dates Data Source(s) R94.31 Abnormal electrocardiogram [ECG] [EKG] EKG:left ventri oriana hypertrophy 03/09/2020 11:06:12 AM EDT [facility] 787.02 Nausea Nausea 03/09/2020 11:06:12 AM ED T [facility] 780.4 Dizziness Dizziness 03/09/2020 11:06:12 AM ED T [facility] 785.1 Intermittent palpitations Intermittent palpitations 03/09/2020 11:06:12 AM EDT [facility] V85.1 BMI 24.0-24.9 BMI 24.0-24.9 03/09/2020 11:06:12 AM EDT [facility] Surgeries/Procedures Procedure Description Date Indications Data Source(s) THERAPEUTIC PX 1/> AREAS EACH 15 MIN EXERCISES 12:00:00 AM EST [facility] ([facility]) THERAPEUTIC PX 1/> AREAS EACH 15 MIN EXERCISES 12:00:00 AM EST [facility] ([facility]) Re-Eval Of PT Established Plan Of Care 20Mins Face To Face P T/Fam 08/10/2020 12:00:00 AM EST [facility] ([facility]) THERAPEUTIC PX 1/> AREAS EACH 15 MIN EXERCISES 12:00:00 AM EST [facility] ([facility]) THERAPEUTIC PX 1/> AREAS EACH 15 MIN EXERCISES 12:00:00 AM EST [facility] ([facility]) THERAPEUTIC PX 1/> AREAS EACH 15 MIN EXERCISES 12:00:00 AM EST [facility] ([facility]) THERAPEUTIC PX 1/> AREAS EACH 15 MIN EXERCISES 12:00:00 AM EST [facility] ([facility]) THERAPEUTIC PX 1/> AREAS EACH 15 MIN EXERCISES 12:00:00 AM EST [facility] ([facility]) THERAPEUTIC PX 1/> AREAS EACH 15 MIN EXERCISES 12:00:00 AM EST [facility] ([facility]) THERAPEUTIC PX 1/> AREAS EACH 15 MIN EXERCISES 12:00:00 AM EST [facility] ([facility]) THERAPEUTIC PX 1/> AREAS EACH 15 MIN EXERCISES 12:00:00 AM EST [facility] ([facility]) THERAPEUTIC PX 1/> AREAS EACH 15 MIN EXERCISES 12:00:00 AM EST [facility] ([facility]) THERAPEUTIC PX 1/> AREAS EACH 15 MIN EXERCISES 12:00:00 AM EST [facility] ([facility]) THERAPEUTIC PX 1/> AREAS EACH 15 MIN EXERCISES 12:00:00 AM EST [facility] ([facility] ) THERAPEUTIC PX 1/> AREAS EACH 15 MIN EXERCISES 12:00:00 AM EST [facility] ([facility] ) THERAPEUTIC PX 1/> AREAS EACH 15 MIN EXERCISES 12:00:00 AM EST [facility] ([facility] ) Physical Therapy Eval - Low Complexity 06/28/2020 12:0 0:00 AM EST [facility] ([facility] ) ARTHROCENTESIS ASPIR&/INJECTION MAJOR JT/BURSA 12:00:00 AM EST [facility] ([facility] ) RADEX SHOULDER COMPLETE MINIMUM 2 VIEWS 03/15/2020 12: 00:00 AM EDT [facility] ([facility] ) ARTHROCENTESIS ASPIR&/INJECTION MAJOR JT/BURSA 12:00:00 AM EDT [facility] ([facility] ) THERAPEUTIC PX 1/> AREAS EACH 15 MIN EXERCISES 12:00:00 AM EDT [facility] ([facility] ) THERAPEUTIC PX 1/> AREAS EACH 15 MIN EXERCISES 12:00:00 AM EDT [facility] ([facility] ) THERAPEUTIC PX 1/> AREAS EACH 15 MIN EXERCISES 12:00:00 AM EDT [facility] ([facility] ) THERAPEUTIC PX 1/> AREAS EACH 15 MIN EXERCISES 12:00:00 AM EDT [facility] ([facility] ) Re-Eval Of PT Established Plan Of Care 20Mins Face To Face P T/Fam 03/07/2020 12:00:00 AM EDT [facility] ([facility] ) THERAPEUTIC PX 1/> AREAS EACH 15 MIN EXERCISES 12:00:00 AM EDT [facility] ([facility] ) THERAPEUTIC PX 1/> AREAS EACH 15 MIN EXERCISES 12:00:00 AM EDT [facility] ([facility] ) THERAPEUTIC PX 1/> AREAS EACH 15 MIN EXERCISES 12:00:00 AM EDT [facility] ([facility] ) THERAPEUTIC PX 1/> AREAS EACH 15 MIN EXERCISES 12:00:00 AM EDT [facility] ([facility]) THERAPEUTIC PX 1/> AREAS EACH 15 MIN EXERCISES 12:00:00 AM EDT [facility] ([facility]) THERAPEUTIC PX 1/> AREAS EACH 15 MIN EXERCISES 12:00:00 AM EDT [facility] ([facility]) THERAPEUTIC PX 1/> AREAS EACH 15 MIN EXERCISES 12:00:00 AM EDT [facility] ([facility]) THERAPEUTIC PX 1/> AREAS EACH 15 MIN EXERCISES 12:00:00 AM EDT [facility] ([facility]) THERAPEUTIC PX 1/> AREAS EACH 15 MIN EXERCISES 12:00:00 AM EDT [facility] ([facility]) THERAPEUTIC PX 1/> AREAS EACH 15 MIN EXERCISES 12:00:00 AM EDT [facility] ([facility] ) THERAPEUTIC PX 1/> AREAS EACH 15 MIN EXERCISES 12:00:00 AM EDT [facility] ([facility]) THERAPEUTIC PX 1/> AREAS EACH 15 MIN EXERCISES 12:00:00 AM EDT [facility] ([facility] ) THERAPEUTIC PX 1/> AREAS EACH 15 MIN EXERCISES 12:00:00 AM EDT [facility] ([facility]) THERAPEUTIC PX 1/> AREAS EACH 15 MIN EXERCISES 12:00:00 AM EDT [facility] ([facility] ) THERAPEUTIC PX 1/> AREAS EACH 15 MIN EXERCISES 12:00:00 AM EDT [facility] ([facility] ) Re-Eval Of PT Established Plan Of Care 20Mins Face To Face P T/Fam 02/08/2020 12:00:00 AM EDT [facility] ([facility]) THERAPEUTIC PX 1/> AREAS EACH 15 MIN EXERCISES 12:00:00 AM EDT [facility] ([facility]) THERAPEUTIC PX 1/> AREAS EACH 15 MIN EXERCISES 12:00:00 AM EDT [facility] ([facility] ) THERAPEUTIC PX 1/> AREAS EACH 15 MIN EXERCISES 12:00:00 AM EDT [facility] ([facility] ) THERAPEUTIC PX 1/> AREAS EACH 15 MIN EXERCISES 12:00:00 AM EDT [facility] ([facility] ) THERAPEUTIC PX 1/> AREAS EACH 15 MIN EXERCISES 12:00:00 AM EDT [facility] ([facility] ) THERAPEUTIC PX 1/> AREAS EACH 15 MIN EXERCISES 12:00:00 AM EDT [facility] ([facility] ) THERAPEUTIC PX 1/> AREAS EACH 15 MIN EXERCISES 12:00:00 AM EDT [facility] ([facility] ) THERAPEUTIC PX 1/> AREAS EACH 15 MIN EXERCISES 12:00:00 AM EDT [facility] ([facility] ) THERAPEUTIC PX 1/> AREAS EACH 15 MIN EXERCISES 12:00:00 AM EDT [facility] ([facility] ) THERAPEUTIC PX 1/> AREAS EACH 15 MIN EXERCISES 12:00:00 AM EDT [facility] ([facility] ) THERAPEUTIC PX 1/> AREAS EACH 15 MIN EXERCISES 12:00:00 AM EDT [facility] ([facility] ) THERAPEUTIC PX 1/> AREAS EACH 15 MIN EXERCISES 12:00:00 AM EDT [facility] ([facility] ) Physical Therapy Eval - Low Complexity 01/11/2020 12:0 0:00 AM EDT [facility] ([facility] ) CLAVICULECTOMY PARTIAL 12/10/2019 12:00:00 AM EDT [facility] ([facility] ) CLAVICULECTOMY PARTIAL 12/10/2019 12:00:00 AM EDT [facility] ([facility] ) PARTIAL REPAIR OR REMOVAL OF SHOULDER BONE 12/10/2019 12:00:00 AM EDT [facility] ([facility] ) Arthroscopy Shoulder Surgical With Rotator Cuff Repair 12/10/2019 12:00:00 AM EDT [facility] ([facility] ) Arthroscopy Shoulder Surgical W/Rotator Cuff Repair 12/10/2019 12:00:00 AM EDT [facility] ([facility] ) CLAVICULECTOMY PARTIAL 12/10/2019 12:00:00 AM EDT [facility] ([facility] ) PARTIAL REPAIR OR REMOVAL OF SHOULDER BONE 12/10/2019 12:00:00 AM EDT [facility] ([facility] ) Arthroscopy Shoulder Surgical With Rotator Cuff Repair 12/10/2019 12:00:00 AM EDT [facility] ([facility]) THERAPEUTIC PX 1/> AREAS EACH 15 MIN EXERCISES 12:00:00 AM EST [facility] ([facility] ) THERAPEUTIC PX 1/> AREAS EACH 15 MIN EXERCISES 12:00:00 AM EST [facility] ([facility] ) THERAPEUTIC PX 1/> AREAS EACH 15 MIN EXERCISES 12:00:00 AM EST [facility] ([facility] ) THERAPEUTIC PX 1/> AREAS EACH 15 MIN EXERCISES 12:00:00 AM EST [facility] ([facility] ) THERAPEUTIC PX 1/> AREAS EACH 15 MIN EXERCISES 12:00:00 AM EST [facility] ([facility] ) THERAPEUTIC PX 1/> AREAS EACH 15 MIN EXERCISES 12:00:00 AM EST [facility] ([facility] ) THERAPEUTIC PX 1/> AREAS EACH 15 MIN EXERCISES 12:00:00 AM EST [facility] ([facility] ) THERAPEUTIC PX 1/> AREAS EACH 15 MIN EXERCISES 12:00:00 AM EST [facility] ([facility] ) THERAPEUTIC PX 1/> AREAS EACH 15 MIN EXERCISES 12:00:00 AM EST [facility] ([facility] ) THERAPEUTIC PX 1/> AREAS EACH 15 MIN EXERCISES 12:00:00 AM EST [facility] ([facility] ) THERAPEUTIC PX 1/> AREAS EACH 15 MIN EXERCISES 12:00:00 AM EST [facility] ([facility] ) THERAPEUTIC PX 1/> AREAS EACH 15 MIN EXERCISES 12:00:00 AM EST [facility] ([facility] ) THERAPEUTIC PX 1/> AREAS EACH 15 MIN EXERCISES 12:00:00 AM EST [facility] ([facility] ) THERAPEUTIC PX 1/> AREAS EACH 15 MIN EXERCISES 12:00:00 AM EST [facility] ([facility] ) THERAPEUTIC PX 1/> AREAS EACH 15 MIN EXERCISES 12:00:00 AM EST [facility] ([facility] ) THERAPEUTIC PX 1/> AREAS EACH 15 MIN EXERCISES 12:00:00 AM EST [facility] ([facility] ) THERAPEUTIC PX 1/> AREAS EACH 15 MIN EXERCISES 12:00:00 AM EST [facility] ([facility] ) THERAPEUTIC PX 1/> AREAS EACH 15 MIN EXERCISES 12:00:00 AM EST [facility] ([facility] ) THERAPEUTIC PX 1/> AREAS EACH 15 MIN EXERCISES 12:00:00 AM EST [facility] ([facility] ) THERAPEUTIC PX 1/> AREAS EACH 15 MIN EXERCISES 12:00:00 AM EST [facility] ([facility] ) THERAPEUTIC PX 1/> AREAS EACH 15 MIN EXERCISES 12:00:00 AM EST [facility] ([facility] ) THERAPEUTIC PX 1/> AREAS EACH 15 MIN EXERCISES 12:00:00 AM EST [facility] ([facility] ) THERAPEUTIC PX 1/> AREAS EACH 15 MIN EXERCISES 12:00:00 AM EST [facility] ([facility] ) THERAPEUTIC PX 1/> AREAS EACH 15 MIN EXERCISES 12:00:00 AM EST [facility] ([facility] ) THERAPEUTIC PX 1/> AREAS EACH 15 MIN EXERCISES 12:00:00 AM EST [facility] ([facility] ) APPLICATION MODALITY 1/> AREAS HOT/COLD PACKS 07/01/20 19 12:00:00 AM EST [facility] ([facility] ) APPL MODALITY 1/> AREAS ELEC STIMJ EA 15 MIN 9 12:00:00 AM EST [facility] ([facility] ) THERAPEUTIC PX 1/> AREAS EACH 15 MIN EXERCISES 12:00:00 AM EST [facility] ([facility] ) THERAPEUTIC PX 1/> AREAS EACH 15 MIN EXERCISES 12:00:00 AM EST [facility] ([facility] ) Re-Eval Of PT Established Plan Of Care 20Mins Face To Face P T/Fam 07/01/2019 12:00:00 AM EST [facility] ([facility] ) APPL MODALITY 1/> AREAS ELEC STIMJ EA 15 MIN 9 12:00:00 AM EST [facility] ([facility]) THERAPEUTIC PX 1/> AREAS EACH 15 MIN EXERCISES 019 12:00:00 AM EST [facility] ([facility]) THERAPEUTIC PX 1/> AREAS EACH 15 MIN EXERCISES 019 12:00:00 AM EST [facility] ([facility]) APPLICATION MODALITY 1/> AREAS HOT/COLD PACKS 06/29/20 12:00:00 AM EST [facility] ([facility]) Results ID Date Data Source [id number] 07/21/2020 12:00:00 AM EST [facility] Bee Padron MD Patient Name: ROB JAVIER [id number] [facility] Date of : 1975 Date [facility]: [facility] [id number] Fax: [phone] EXAM: MRI THORACIC SPINE WITHOUT&WITH CONTRASTPROCEDURE INFORMATION:Exam: MR Thoracic Spine Without and With ContrastExam date and time: 07/21/2020 8:02 AM Age: 45 years oldClinical indication: Pain in thoracic spineTECHNIQUE: Imaging protocol: Multiplanar magnetic resonance images of thethoracic spine without and with intravenous contrast. Contrast material:PROHANCE; Contrast volume: 15 ml; Contrast route: INTRAVENOUS (IV);COMPARISON: MRI THORACIC SPINE WITHOUT CONTRAST 11/29/2016 12:19 PMFINDINGS:Vertebrae: There is redemonstration of a 7 mm T1 and T2 bright lesion ofposterosuperior T12 demonstrating loss of signal on STIR images typical ofhemangioma. There is an 11 mm complex signal pattern centrally in T10 alsopresent previously with incomplete signal suppression on STIR images. Thereappears to be some degree of enhancement but comparison to the pre contrastimages is limited by the postcontrast fat-suppressed technique. Thisprobably represents a fat poor hemangioma. There is subtle cupping of thesup erior endplate of T3 with no interval change. There are no regions ofabnormal enhancement. There is no nerve root compression.Spinal cord: The spinal cord is normal.Discs/Spinal canal/Neural foramina: No significant disc disease. Nosignificant spinal canal stenosis. Soft tissues: Unremarkable.IMPRESSION:1. There is redemonstration of a 7 mm T1 and T2 bright lesion ofposterosuperior T12 demonstrating loss of signal on STIR images typical ofhemangioma. There is an 11 mm complex signal pattern centrally in T10 alsopresent previously with incomplete signal suppression on STIR images. Thereappears to be some degree of enhancement but comparison to the pre contrastimages is limited by the postcontrast fat-suppressed technique. Thisprobably represents a fat poor hemangioma.2. There are no regions of abnormal enhancement.3. There is no nerve root compression.Thank you for allowing us to participate in the care of your patient.Dictated and Authenticated by: Chase Bourne MD 07/21/2020 11:17 AM [facility] ([place] [facility] [place])VradV/Yuliana you for referring ROB JAVIER to our office. Electronically Signed - [facility] 07/21/20 11:20 Name Value Range Interpretation Code Description Data Jodee rce(s) Supporting Document(s) ID Date Data Source [id number] 07/10/2020 12:00:00 AM EST [facility] Name Value Range Interpretation Code Description Data Jodee rce(s) Supporting Document(s) SARS-CoV2 Rapid Antigen [facility] and reported by [facility]. ID Date Data Source [id number] 03/10/2020 09:32:07 AM EDT [facility] In-House Blood TestsDate/Time Colle cted: March 10, 2020 9:05 AMTest Result Reference Range Normal ValueComments: taken from right ac, tolerated well.Tameka Chadwick, March 10, 2020 9:32 AMAssessment & Plan Orders:[id number]-Rgw Vst-Est Level I [CPT-41991] 07064 - Venipuncture [CPT-26484] Name Value Range Interpretation Code Description Data Jodee rce(s) Supporting Document(s) ID Date Data Source [id number] 03/10/2020 09:05:00 AM EDT [facility] Name Value Range Interpretation Code Description Data Jodee rce(s) Supporting Document(s) HGBA1C 5.2 % N [facility] ID Date Data Source [id number] 03/10/2020 09:05:00 AM EDT [facility] Name Value Range Interpretation Code Description Data Jodee rce(s) Supporting Document(s) BG FASTING 86 mg/dL 70-100 N [facility] T4, FREE 1.07 ng/dL 0.76-1.46 N [facility] TSH 1.390 microintl units/mL 0.358-3.740 N [facility] VIT D25 TOT 23.1 ng/mL 30.0-100.[address] [facility] ID Date Data Source [id number] 03/10/2020 09:05:00 AM EDT [facility] Name Value Range Interpretation Code Description Data Jodee rce(s) Supporting Document(s) HCT 40.8 % 36.0-47.0 N [facility] HGB 13.3 g/dL 12.0-15.5 N [facility] MCH 32.6 G/DL pg 32.0-36.5 N [facility] MCHC 28.7 PG % 27.0-33.0 N [facility] PLATELETS 369 10 10*3/mm3 150-450 N [facility] RBC 4.64 10 10*6/mm3 4.00-5.40 N [facility] RDW 13.2 % 11.5-14.5 N [facility] WBC TOTAL 6.4 4.0-10.0 N [facility] ID Date Data Source [id number] 03/09/2020 10:27:21 AM EDT [facility] Measurements & CalculationsHeight: 68 inches (5 ft. 8 in.) 172.72 cm Weight: 161 pounds 2 oz. 73.24 kg Body Mass Index (BMI): 24.59BMI Interpretation: Healthy WeightBody Surface Area (BSA): 1.87Vital SignsTemperature: 97.8F 36.56C tympanic Pulse Rate: 81 beats/minuteRespiratory Rate: 18 respirations/minuteBlood Pressure: 137/89 right arm sitting automaticO2 Saturation: 98% Vital Signs performed by: Cierra Ramires LPN, March 09, 2020 10:27 AMVital Signs performed by: Lenny ONEAL, March 09, 2020 10:47 AMInitial Intake Information From: patientRoom #: 2Infectious Disease / Travel ScreeningRecent travel for you or any close contacts? NoHave you had any close contact with anyone diagnosed with or under investigation for COVID-19 (coronavirus)? NoFever? NoRespiratory symptoms: cough, cold, congestion, shortness of breath, difficulty breathing? NoLoss of smell? NoLoss of taste? NoSmoking, Tobacco, Vaping or Smoke Exposure StatusSmoke Status: never smokerTobacco Use: NoDo you vape? NoPassive Smoke Exposure: NoMenstrual HistoryComments: hysterectomyHealthcare HistorySince your last office visit...Have you been admitted to the hospital? NoHave you been to an emergency room (ER) or urgent care clinic? NoHave you seen another healthcare provider? Yes - ortho, pt, Have you seen a dentist? NoIntake performed by: Cierra Ramires LPN, March 09, 2020 10:33 AMRate Your HealthIn general, would you say your health is? GoodPain AssessmentAre you currently having any pain which... You would like your provider to address? No Affects your activity level? NoDepression Screening - PHQ-2Over the last two weeks, have you... Had little interest or pleasure in doing things? Not at all Been feeling down, depressed, or hopeless? Not at all PHQ-2 Score: 0Anxiety Screening - CARLIE-2Over the last two weeks, have you been... Feeling nervous, anxious, or on edge? Not at all Unable to stop or control worrying? Not at all CARLIE-2 Score: 0Food InsecurityWithin the past year...Did you worry whether your food would run out before you got money to buy more? NoWas there a time when the food you bought didn't last and you didn't have money to get more? NoScreening, Brief Intervention, & Referral to Treatment (SBIRT)Pre-Screening Questions How many times have you have 4 or more drinks in a day? 0How many times have you used an illegal drug or used a prescription medication for a non-medical reason? 0Performed by: Cierra Ramires LPN, March 09, 2020 10:34 AMPatient History Me dical History:interstitial cystitisAsthmaTAH-cysts and fibroid tumorsSurgical History:Partial Hysterectomy 2003 - Dr. BenderComplete Hysterectomy 2005 - [facility] Bender at [facility] shoulder x2 04/09/2019Family History:T2DM (cousin)HTN, HLD, hypothyroid (mother)hypothyroid (sister)Social/Personal History:Smoking History:Patient has never smoked. Alcohol Use: CurrentlyFrequency: holidays/special occasions onlyAmount: 1Drug Use: NeverChief Complaintthyroid concernsHistory of Present Illness (HPI)45 yo female pt presents for thyroid concerns.Pt states she gets shakey and nauseas and lightheaded x 1.5 months, mo st noticable in the morning, sometimes improves with eating but not always. Occurs 3-4 times per week. Pt states she has been checking her BP at home and it has been normal. Pt wondering if it is her thyroid or sugar issues. Also notes occasional palpitations in the last few days. Last labs were 2017: hyperkalemia of 5.6 (pt states wasn't on any medication at that time). Had diarrhea for a week, but none in the last few days. Intermittently has b/l rib pain if palpated or if her grandkids sit on her sides. HPI performed by: Lenny ONEAL, March 09, 2020 10:51 AMTrans[facility] of [facility] InboundProblem ReviewProblem List was reviewed and/or updated during this visit.Medication Reconciliation & ReviewMedication List was reviewed and/or updated during this visit, including review of any lehw-uay-xjcldql medications, herbal therapies, and/or supplements.Allergy ReviewAllergy List was reviewed and/or updated during this visit.Review of Systems General: Complains of dizziness. Denies loss of appetite, chills, fatigue, fever, headache, feeling ill. Cardiovascular: Denies chest pain, palpitations, feeling faint, peripheral edema. Respiratory: Denies cough, difficulty breathing, shortness of breath, wheezing. Gastrointestinal: Denies nausea, vomiting, diarrhea, constipation, pain or discomfort, blood in stool, black or tarry stools. Skin: Denies rash, redness, suspicious lesions. Neurologic: Complains of see HPI, feeling faint. Denies weakness, numbness/tingling, seizures, slurred speech. Endocrine: Denies cold intolerance, heat intolerance, excessive thirst, excessive hunger, excessive u rination, weight loss, weight gain. Physical ExamGeneral Appearance: well nourished, well hydrated, no acute distressEyes, External: conjunctivae and lids normal, EOMIRespiratory, Auscultation: clear to auscultation bilaterally; no rales, rhonchi, or wheezesCardiovascular, Auscultation: S1, S2 audible; no murmur, rub, or gallop; RRRPeripheral Circulation: no clubbing, cyanosis, edema, or varicositiesAbdomen: soft, non-tender, no masses, bowel sounds normalGait & Station: normalSkin, Inspection: no rashes, lesions, or ulcerationsOrientation: oriented to time, place, and personJudgment & Insight: intactCare Management Plan Transitions of CareInboundRate Your HealthIn general, would you say your health is? GoodAssessment & Plan Problems:Added: BMI 24.0-24.9 (ICD-V85.1) (ZPD71-F29.24)Intermittent palpitations (ICD-785.1) (PVK45-J29.2)Dizziness (ICD- 780.4) (RBJ85-B09) Assessment: Instructions: Update labs as ordered. Eat frequent small meals, remain well hydrated, healthy food choices.Nausea (ICD- 787.02) (DGN01-S52.0) Assessment: Instructions: As above. Colstrip diet.EKG:left ventricle hypertrophy (ICD-429.3) (EGL33-O03.31): 2017-[facility] Assessment: Instructions: EKG today confirms prior LVH from [facility] EKG in 2017. Consider cardiology referral for further evaluation.Assessed:Hypothyroidism (ICD-244.9) (MBT83-T72.9) Assessment: Instructions: Update labs.Hyperlipidemia (ICD-272.4) (NYL47-W93.5) Assessment: Instructions: Fasting labs have been ordered for you today. When labs are drawn, please ensure that you have had nothing to eat or drink for 8-10 hours prior to the blood drawn. Water or black coffee is OK to have before the blood draw.Asthma (ICD-493.90) (PBO36-S86.909) Assessment: Instructions: Continue current albuterol rescue inhaler.Removed:Otalgia, unspecified (ICD-388.70) (ICD10- H92.09)Patient Instructions/Care Plan: Dizziness: Update labs as ordered. Eat frequent small meals, remain well hydrated, healthy food choices.Hypothyroidism: Update labs.Hyperlipidemia: Fasting labs have been ordered for you today. When labs are drawn, please ensure that you have had nothing to eat or drink for 8-10 hours prior to the blood drawn. Water or black coffee is OK to have before the blood draw.Asthma: Continue current albuterol rescue inhaler.Nausea: As above. [place] diet.EKG:left ventricle hypertrophy: EKG today confirms prior LVH from [facility] EKG in 2017. Consider cardiology referral for further evaluation. Plan developed in collaboration with patient and/or familyMedications:ALBUTEROL SULFATE HFA 108 (90 BASE) MCG/ACT INHALATION AEROSOL SOLUTIONMedication Changes:New Prescription:ALBUTEROL SULFATE HFA 108 (90 BASE) MCG/ACT INHALATION AEROSOL SOLUTION-Take 2 puffs oral inhalation q 4 hrs prn wheezing or shortness of breath Qty: 1[Inhaler] Refills: 5 Method: ElectronicRemoved:VITAMIN D (ERGOCALCIFEROL) 63841 UNIT ORAL CAPSULE-1 pill po weeklyAllergies:VICODIN (Moderate)* LATEX (Moderate)Orders:COMP METABOLIC PANEL [CPT-84328] CBC W/DIFF [CPT-39700] HgBA1c [CPT-23770] LIPID PANEL [CPT-51923] TSH [CPT-98414] T-4 free [CPT-03556] Vitamin D 250H Unspecified [CPT-84014] EKG; with interpretation and report [CPT-21489] Adult - Ofc Vst, EST, Level III [CPT-42820] Follow-Up Return to clinic: in 30 days for preventive care visitAdditional Follow-Up: annual PEClinical Visit Summary Declined Name Value Range Interpretation Code Description Data Jodee rce(s) Supporting Document(s) ID Date Data Source [id number] 12/10/2019 11:54:00 AM EDT [facility] ([facility] ) Name Value Range Interpretation Code Description Data Jodee rce(s) Supporting Document(s) Surgical pathology study Laboratory test result [facility] ([facility] ) FINAL DIAGNOSIS Left distal clavicle, excision: Portion of bone. Gross only. 12/13/2019 - 1351 CLINICAL DIAGNOSIS Left shoulder rotator cuff tear 12/13/2019 - 1124 GROSS DIAGNOSIS Received in formalin labeled "left distal clavicle" is a 2.2 x 1.5 x 1 cm portion of bone with overlying fibrocartilage. Gross only. -SH 12/13/2019 - 1351 Signed Eugenio Holder MD 12/13/2019 1351 ID Date Data Source [id number] 08/17/2019 12:00:00 AM EST [facility] Bee Padron MD Patient Name: LARISSA JAVIER1 [facility] Date of : 1975 Date of Exam: 08/17/2019ALFONSO Ochoa [id number]#: Fax: [phone] EXAM: MRI SHOULDER LEFT W/O&W/CONTRAST ARTHROGRAMCLINICAL INFORMATION: Repair of partial thickness rotator cuff tear andsuperior labral tear on 04/09/19.TECHNIQUE:Pre and post contrast 3T MRI of the left shoulder with shoulder MRarthrogram was performed utilizing various sequences.COMPARISON: MR arthrogram 11/10/18.The supraspinatus tendon is extremely thin with scattered increased signalon T2 weighted images distally. It is quite a bit thinner than on theprior study consistent with a high-grade partial tear. No other definiterotator cuff tendon tear is seen. Mild hypertrophic changes are seen atthe acromioclavicular joint with mild fluid in the joint. Acromion is TypeII. Anchors are seen in the humeral head. The patient has had a bicepstenodesis as well. Deltoid muscle is unremarkable. The entire labrumappears somewhat truncated but no discrete tear is seen. Small subcorticalcyst is again seen in the superolateral humeral head. Small amount ofglenohumeral joint fluid is present.IMPRESSION:Supraspinatus tendon appears more thin than on the prior study withincreased signal on T2 weighted images most consistent with a high- gradepartial tear. Truncated appearance of the labrum without a discrete tear.Post surgical changes as above.Accredited by the [employer] in MR.Emir Roldan, MDDSG/jmcTfaraz you for referring ROB JAVIER to our office. Electronically Signed - EMIR ROLDAN MD 08/18/19 9:33 Name Value Range Interpretation Code Description Data Jodee rce(s) Supporting Document(s) ID Date Data Source [id number] 08/17/2019 12:00:00 AM EST [facility] Bee Padron MD Patient Name: ROB JAVIER1571 [facility] Date of : 1975 Date of Exam: 08/17/2019[place], [place] [address]BN#: Fax: [phone] EXAM: INJECTION PROCEDURE FOR SHOULDER ARTHROGRAMCLINICAL INFORMATION: Superior glenoid labral lesion of the leftshoulder. Rule out re-tear of the rotator cuff.The procedure was performed by MESHA Gongora, under the directsupervision of Dr. Roldan.The benefits and risks including but not limited to pain, infection,bleeding and anaphylaxis were explained to the patient as well as thepossibility of an unsuccessful procedure, and an informed consent wasobtained. Directly prior to the start of the procedure, a formal time-outwas completed.The left glenohumeral joint space was localized using fluoroscopicguidance. The skin was prepped and draped in a sterile fashion.Approximately 5 cc of 1% Lidocaine 10 mg/ml was used as a local anesthetic. Using fluoroscopic guidance, a #22 gauge spinal needle was inserted andadvanced into the left glenohumeral joint space. Approximately 1 cc ofOmnipaque 300 mg/ml was injected to verify placement. 12 cc of a solutioncontaining 20 cc of sterile saline and 0.15 cc of ProHance was injectedinto the joint space. The needle was removed and the patient was taken toMRI for post procedural imaging.The patient tolerated the procedure well and there were no immediatecomplications.Fluoroscopic images are performed with last image hold technology. Theseimages require no additional radiation to acquire.Fluoroscopy time was 19 seconds at 3 pulses/second. This is equal to 4.75seconds continuous fluoroscopy time which is a 75% reduction in radiation.Dictated by Bee Lord, [facility], with Dr. Roldan.Emir Roldan, MAINESG/jmcThank you for referring ROB JAVIER to our office. Electronically Signed - EMIR ROLDAN MD 08/18/19 9:36 Name Value Range Interpretation Code Description Data Jodee rce(s) Supporting Document(s) ID Date Data Source [id number] 08/17/2019 12:00:00 AM [facility] Bee Padron MD Patient Name: ROB JAVIER1571 [facility] Date of : 1975 201 Date [facility] Exam: [facility] [id number] Fax: [phone] EXAM: INJECTION PROCEDURE FOR SHOULDER ARTHROGRAMCLINICAL INFORMATION: Superior glenoid labral lesion of the leftshoulder. Rule out re-tear of the rotator cuff.The procedure was performed by Bee Lord [facility], under the directsupervision of Dr. Roldan.The benefits and risks including but not limited to pain, infection,bleeding and anaphylaxis were explained to the patient as well as thepossibility of an unsuccessful procedure, and an informed consent wasobtained. Directly prior to the start of the procedure, a formal time-outwas completed.The left glenohumeral joint space was localized using fluoroscopicguidance. The skin was prepped and draped in a sterile fashion.Approximately 5 cc of 1% Lidocaine 10 mg/ml was used as a local anesthetic. Using fluoroscopic guidance, a #22 gauge spinal needle was inserted andadvanced into the left glenohumeral joint space. Approximately 1 cc ofOmnipaque 300 mg/ml was injected to verify placement. 12 cc of a solutioncontaining 20 cc of sterile saline and 0.15 cc of ProHance was injectedinto the joint space. The needle was removed and the patient was taken toMRI for post procedural imaging.The patient tolerated the procedure well and there were no immediatecomplications.Fluoroscopic images are performed with last image hold technology. Theseimages require no additional radiation to acquire.Fluoroscopy time was 19 seconds at 3 pulses/second. This is equal to 4.75seconds continuous fluoroscopy time which is a 75% reduction in radiation.Dictated by Bee Lord [facility], with Dr. Roldan.Emir Roldan, JAQUAN/Yuliana you for referring ROB JAVIER to our office. Electronically Signed - EMIR ROLDAN MD 08/18/19 9:36 Name Value Range Interpretation Code Description Data Jodee rce(s) Supporting Document(s) Procedure Social History Code Duration Value Status Description Data Source(s ) Smoking 09/14/2019 12:00:00 AM EST Patient has never smoked co mpleted Patient has never smoked [facility] ([facility]) Vital Signs ID Date Data Source UNK Name Value Range Interpretation Code Description Data Source(s) Body temperature 97.3 [degF] 97.3 [degF] [facility] ([facility])
--- OUTSIDE RECORDS SUMMARY | 2020-08-23 12:03 | CCD | Continuity of Care Document ---
Author Author Samanta PADRON MD Organization Unknown Address [address] [place] [id number] Phone [phone] Care Team Providers Care Production Planning Manager Name Role Phone Ramin Walton MD [facility] [phone] Albino Yu PA-C [facility] [phone] Problems Active Problems Provider Date Headache Onset: [...] Information Available Procedures Date Code Description Status 03/15/2020 40799 X-Ray Shoulder Complete Complete d 03/15/202087298 Inject/Drain Joint/Bursa Major C ompleted 03/09/2020 92865 Therapeutic Procedure, Each 15 M inutes Completed 03/09/2020 26036 Therapeutic Procedure, Each 15 M inutes Completed 03/07/2020 98232 Re-Eval Of PT Establ ished Plan Of Care 20Mins Face To Face PT/Fam Completed 03/07/2020 24694 Therapeutic Procedure, Each 15 M inutes Completed 03/07/2020 25415 Therapeutic Procedure, Each 15 M inutes Completed 03/02/2020 19167 Therapeutic Procedure, Each 15 M inutes Completed 03/02/2020 85080 Therapeutic Procedure, Each 15 M inutes Completed 02/24/2020 47733 Therapeutic Procedure, Each 15 M inutes Completed 02/24/2020 00028 Therapeutic Procedure, Each 15 M inutes Completed 02/24/2020 91704 Therapeutic Procedure, Each 15 M inutes Completed 02/22/2020 16009 Therapeutic Procedure, Each 15 M inutes Completed 02/22/2020 74034 Therapeutic Procedure, Each 15 M inutes Completed 02/17/2020 52679 Therapeutic Procedure, Each 15 M inutes Completed 02/17/2020 54088 Therapeutic Procedure, Each 15 M inutes Completed 02/15/2020 93757 Therapeutic Procedure, Each 15 M inutes Completed 02/15/2020 57971 Therapeutic Procedure, Each 15 M inutes Completed 02/10/2020 55300 Therapeutic Procedure, Each 15 M inutes Completed 02/10/2020 77382 Therapeutic Procedure, Each 15 M inutes Completed 02/08/2020 73677 Re-Eval Of PT Establ ished Plan Of Care 20Mins Face To Face PT/Fam Completed 02/08/2020 69540 Therapeutic Procedure, Each 15 M inutes Completed 02/08/2020 97611 Therapeutic Procedure, Each 15 M inutes Completed 02/04/2020 95867 Therapeutic Procedure, Each 15 M inutes Completed 02/04/2020 93543 Therapeutic Procedure, Each 15 M inutes Completed 02/01/2020 95621 Therapeutic Procedure, Each 15 M inutes Completed 02/01/2020 27209 Therapeutic Procedure, Each 15 M inutes Completed 01/27/2020 23546 Therapeutic Procedure, Each 15 M inutes Completed 01/27/2020 88271 Therapeutic Procedure, Each 15 M inutes Completed 01/25/2020 35029 Therapeutic Procedure, Each 15 M inutes Completed 01/25/2020 88533 Therapeutic Procedure, Each 15 M inutes Completed 01/21/2020 05022 Therapeutic Procedure, Each 15 M inutes Completed 01/21/2020 26134 Therapeutic Procedure, Each 15 M inutes Completed 01/13/2020 88960 Therapeutic Procedure, Each 15 M inutes Completed 01/13/2020 03805 Therapeutic Procedure, Each 15 M inutes Completed 01/11/2020 57707 Physical Therapy Eval - Low Comp lexity Completed Medical Devices Description No Information Available Encounters Type Date Location Provider Dx Diagnosis Office Visit 04/27/2020 11:15a Gabriela Padron MD [...] shoulder, subs Assessments Date Code Description Provider 06/23/2020 S46.012D Strain of muscle(s) and tendon(s) [...] 03/15/2020 M75.41 Impingement syndrome of right sh minesh Alberto Padron MD 03/09/2020 S46.012D Strain of [...] PT, DPT Plan of Treatment Future Appointment(s):* 06/30/2020 4:30 pm - Heron Delvalle P.T. at [facility] * 06/28/2020 9:30 am - Moisés Mccain PT, DPT at Physical Therapy * 07/17/2020 3:15 pm - Dinh Mathews [facility]onika at [facility] [place] 06/23/2020 - Alberto Padron MD* S46.012D Strain of muscle(s) and tendon(s) of the rotator cuff of left shoulder, subsequent encounter* New Xrays:* MRI Thoracic Spine With & Without Kang, Ordered: 06/23/20 * Follow up:* with [facility] for thorasic mri results * M75.41 Impingement syndrome of right shoulder Functional Status Description No Information Available Mental Status Description No Information Available Referrals Refer to Reason for Referral Status Appt Date Alberto Padron MD PT LT SHOULDER WRITTEN AUTH FOR 12 VISITS. PASSED TO PT DEPT. LS Created [address] [place] [address] [address] [place] [address] [phone] Alberto Padron MD MRI T SPINE WRITTEN AUTH FOR DX PURPOSES. PASSED TO [facility]. MAXX Created [address] [place] [address] [phone] Alberto Padron MD PT- LT SHOULDER OK TO NIC 3 MONTHS AFTER SURGERY. PASSED TO PT DEPT. MAXX Created [facility] [address] [address] [phone]
[2020-08-23] MEDS ORDERED: NS 1,000 ML IV SCH (12:59)
[2020-08-23] MEDS ORDERED: ONDANSETRON 4MG/2ML VIAL IV ONE (13:00)
[2020-08-23] MEDS ORDERED: KETOROLAC 30 MG/ML 1ML VIAL IV ONE (13:00)
--- OUTSIDE RECORDS SUMMARY | 2020-08-23 13:35 | CCD ---
Author Author [facility] Organization [facility] Address Unknown Phone Unavailable Care Team Providers Care Shotweld Operator Name Role Phone OZUNA, CHRIS LENNY RPA-C [...] BEE DE LEON Unavailable Unavailable Isael, Katarzyna COMBAT CONTROL COMBAT CONTROL Unavailable Unavailable [facility], RFROST OZUNA PA LENNY [...] is protected by Article 27-F of the [facility] Public Health law. If you continue you may have access to information: Regarding HIV / AIDS; Provided by facilities licensed or operated by the [facility] Office of Mental Health; or Provided by the [facility] Office for People With Developmental Disabilities. If such information is present, then the following [facility] mandated warning applies: This information has [...] law may result in a fine or shelter sentence or both. A general authorization for the release of medical or other information is NOT sufficient authorization for further disc losure. Family History Family Member Name Family Member Gender Family Member Status Date o f Status Description Data Source(s) Unknown Unknown Problem [facility] ([facility]) Unknown Female Problem [facility] ([facility] Encounters Encounter Providers Location Date Indications Data Source(s ) Outpatient Attender: DIXIE ONEAL Physical Therapy 08/02/2020 01:30:00 PM EST [facility] ([facility]) Outpatient Attender: BEE PADRON MD Physical Therapy 01:30:00 PM EST [facility] ([facility]) Outpatient Attender: KADIE HERRERA [facility] 04/12 05:40:01 PM EDT [facility] Outpatient Attender: LNENY MILLER [facility] 05/02/2020 05:40:01 PM EDT [facility] Outpatient Attender: BEE PADRON MD Physical Therapy 11:15:00 AM EDT [facility] ([facility]) [facility] 01:23:01 PM EDT [facility] Outpatient Attender: KADIE OROZCO [facility] 03/13 09:14:01 AM EDT [facility] Outpatient Attender: LENNY MILLER [facility] 04/10/2020 09:14:00 AM EDT [facility] Outpatient Attender: KADEI NOE HERRERA [facility] 03/11 12:47:03 PM EDT [facility] Outpatient Attender: BEE PADRON MD Physical Therapy 01:00:00 PM EDT [facility] ([facility]) Outpatient Attender: [facility] 02/10 09:58:01 AM EDT [facility] Outpatient Attender: LENNY OZUNA RPA-C FP 03/10/2020 08:47:04 AM EDT [facility] Outpatient Attender: LENNY OZUNA RPA-C FP 03/09/2020 02:57:00 PM EDT [facility] Outpatient Attender: LENNY OZUNA RPA-C FP 03/09/2020 01:58:00 PM EDT [facility] Outpatient Attender: LENNY OZUNA RPA-C FP 03/09/2020 11:08:01 AM EDT [facility] Outpatient Attender: LENNY OZUNA RPA-C FP 02/29/2020 09:35:01 AM EDT [facility] Outpatient Attender: JOANNA ROBISONP SCOTT 02/29/2020 09:20:02 A M EDT [facility] Office Visit Attender: BEE PADRON MD Physical Therapy 10:30:00 AM EDT [facility] ([facility]) Office Visit Attender: BEE PADRON MD Physical Therapy 10:45:00 AM EDT [facility] ([facility]) Outpatient Attender: BEE PADRON MD Physical Therapy 10:30:00 AM EST [facility] ([facility]) Outpatient Attender: BEE PADRON MD Physical Therapy 02:15:00 PM EST [facility] ([facility]) Outpatient Referrer: BEE PADRON MD 08/17/2019 09:21:0 0 AM EST [facility] Outpatient Referrer: BEE PADRON MD 08/16/2019 08:59:0 0 AM EST [facility] Outpatient Referrer: BEE PADRON MD 07/29/2019 09:07:0 0 AM EST [facility] Outpatient Referrer: Albino ONEAL 07/29/2019 09:04:0 0 AM EST [facility] Medications Medication Brand Name Start Date Product Form Dose Route Admi nistrative Instructions Pharmacy Instructions Status Indications Reaction Description Data Source(s) Morphine Sulfate 15 MG Oral Tablet Morphine Sulfate 12/03/2019 1 2:00:00 AM EDT active [facility] ( [facility]) Morphine Sulfate 15 MG Extended Release Oral Tablet [MS Cont in] MS Contin 12/03/2019 12:00:00 AM EDT ORAL active [facility] ([facility]) Ibuprofen 600 MG Oral Tablet [Ibu] Ibu 12/03/2019 12:00:00 AM EDT ORAL active [facility] ([facility]) No Active Medications 09/14/2019 12:00:00 AM EST completed [facility] ([facility]) Methylprednisolone 4 MG Oral Tablet [Medrol] Medrol 12:00:00 AM EST completed [facility] ([facility]) Morphine Sulfate 15 MG Oral Tablet Morphine Sulfate 04/08/2019 1 2:00:00 AM EDT ORAL completed [facility] ([facility]) Oxycodone Hydrochloride 5 MG Oral Tablet Oxycodone HCL 04/08/2019 12:00:00 AM EDT completed [facility] ([facility]) Insurance Providers Payer name Policy type / Coverage type Policy ID Covered alliance party ID Covered alliance party's relationship to boykin Policy Boy[place] Plan Information [facility] COMM[facility] [id number] SP [id number] EMEDNY [id number] SP [id number] ESIS DC WC CLAIMS O [id number] S [id number] Managed Care - [facility] Community Plan P [id number] S [id number] Medicaid S [id number] S [id number] Managed Care - [facility] Community Plan P [id number] S [id number] Medicaid S [id number] S [id number] HRSA UNINSURED FUND [id number] SP [id number] [place] WC CLAIMS [id number] SP [id number] SELF PAY ONLY [id number] SP [id number] [place] WC CLAIMS [id number] SP [id number] MEDICAID [id number] SP [id number] Skylar [facility] () Workers Compensation [id number] Self [id number] Esis () Workers Compensation [id number] Self [id number] [place] Medig[place] Part B [id number] Self [id number] Managed Care - Community Plan [facility] P [id number] S [id number] Managed Care - Community Plan [facility] P [id number] S [id number] Graves [facility] () Workers Compensation [id number] Self [id number] [facility] O [id number] S [id number] Managed Care - Community Plan [facility] P [id number] S [id number] Medicaid S [id number] S [id number] Skylar [facility] Workers Compensation [id number] Self [id number] Medicaid P [id number] S [id number] UN COMMUNITY PLAN [facility] [id number] SP [id number] ONE CALL CARE MANAGEMENT O [id number] S [id number] Graves [facility] () Workers Compensation Self [employer] O [id number] S [id number] [facility] O [id number] S [id number] [employer] O [id number] S [id number] Skylar Claims Workers Compensation Self [facility] COMMUNITY [employer] [facility] [facility] [id number] SP [id number] SKYLAR [facility] [id number] SP [id number] OTHER WORKERS COMPENSATI P [id number] S [id number] OTHER WORKERS COMPENSATION [id number] SP [id number] [employer] [employer] [employer] PLUS [id number] SP [id number] SELF PAY UNAVAILABLE SP UNAVAILA BLE MEDICAID [id number] SP [id number] MEDICAID [id number] SP [id number] Problems, Conditions, and Diagnoses Code Display Name Description Problem Type Effective Dates Data Source(s) R94.31 Abnormal electrocardiogram [ECG] [EKG] EKG:left ventri oriana hypertrophy 03/09/2020 11:06:12 AM EDT [facility] 2017-[facility] 787.02 Nausea Nausea 03/09/2020 11:06:12 AM ED T [facility] 780.4 Dizziness Dizziness 03/09/2020 11:06:12 AM ED T [facility] 785.1 Intermittent palpitations Intermittent palpitations 03/09/2020 11:06:12 AM EDT [facility] V85.1 BMI 24.0-24.9 BMI 24.0-24.9 03/09/2020 11:06:12 AM EDT [facility] Surgeries/Procedures Procedure Description Date Indications Data Source(s) THERAPEUTIC PX 1/> AREAS EACH 15 MIN EXERCISES 12:00:00 AM EST [facility] ([facility]) THERAPEUTIC PX 1/> AREAS EACH 15 MIN EXERCISES 12:00:00 AM EST [facility] ([facility]) Re-Eval Of PT Established Plan Of Care 20Mins Face To Face P T/Fam 08/10/2020 12:00:00 AM EST [facility] ([facility]) THERAPEUTIC PX 1/> AREAS EACH 15 MIN EXERCISES 12:00:00 AM EST [facility] ([facility]) THERAPEUTIC PX 1/> AREAS EACH 15 MIN EXERCISES 12:00:00 AM EST [facility] ([facility]) THERAPEUTIC PX 1/> AREAS EACH 15 MIN EXERCISES 12:00:00 AM EST [facility] ([facility]) THERAPEUTIC PX 1/> AREAS EACH 15 MIN EXERCISES 12:00:00 AM EST [facility] ([facility]) THERAPEUTIC PX 1/> AREAS EACH 15 MIN EXERCISES 12:00:00 AM EST [facility] ([facility]) THERAPEUTIC PX 1/> AREAS EACH 15 MIN EXERCISES 12:00:00 AM EST [facility] ([facility]) THERAPEUTIC PX 1/> AREAS EACH 15 MIN EXERCISES 12:00:00 AM EST [facility] ([facility]) THERAPEUTIC PX 1/> AREAS EACH 15 MIN EXERCISES 12:00:00 AM EST [facility] ([facility]) THERAPEUTIC PX 1/> AREAS EACH 15 MIN EXERCISES 12:00:00 AM EST [facility] ([facility]) THERAPEUTIC PX 1/> AREAS EACH 15 MIN EXERCISES 12:00:00 AM EST [facility] ([facility]) THERAPEUTIC PX 1/> AREAS EACH 15 MIN EXERCISES 12:00:00 AM EST [facility] ([facility] ) THERAPEUTIC PX 1/> AREAS EACH 15 MIN EXERCISES 12:00:00 AM EST [facility] ([facility] ) THERAPEUTIC PX 1/> AREAS EACH 15 MIN EXERCISES 12:00:00 AM EST [facility] ([facility] ) Physical Therapy Eval - Low Complexity 06/28/2020 12:0 0:00 AM EST [facility] ([facility] ) ARTHROCENTESIS ASPIR&/INJECTION MAJOR JT/BURSA 12:00:00 AM EST [facility] ([facility] ) RADEX SHOULDER COMPLETE MINIMUM 2 VIEWS 03/15/2020 12: 00:00 AM EDT [facility] ([facility] ) ARTHROCENTESIS ASPIR&/INJECTION MAJOR JT/BURSA 12:00:00 AM EDT [facility] ([facility] ) THERAPEUTIC PX 1/> AREAS EACH 15 MIN EXERCISES 12:00:00 AM EDT [facility] ([facility] ) THERAPEUTIC PX 1/> AREAS EACH 15 MIN EXERCISES 12:00:00 AM EDT [facility] ([facility] ) THERAPEUTIC PX 1/> AREAS EACH 15 MIN EXERCISES 12:00:00 AM EDT [facility] ([facility] ) THERAPEUTIC PX 1/> AREAS EACH 15 MIN EXERCISES 12:00:00 AM EDT [facility] ([facility] ) Re-Eval Of PT Established Plan Of Care 20Mins Face To Face P T/Fam 03/07/2020 12:00:00 AM EDT [facility] ([facility] ) THERAPEUTIC PX 1/> AREAS EACH 15 MIN EXERCISES 12:00:00 AM EDT [facility] ([facility] ) THERAPEUTIC PX 1/> AREAS EACH 15 MIN EXERCISES 12:00:00 AM EDT [facility] ([facility] ) THERAPEUTIC PX 1/> AREAS EACH 15 MIN EXERCISES 12:00:00 AM EDT [facility] ([facility] ) THERAPEUTIC PX 1/> AREAS EACH 15 MIN EXERCISES 12:00:00 AM EDT [facility] ([facility]) THERAPEUTIC PX 1/> AREAS EACH 15 MIN EXERCISES 12:00:00 AM EDT [facility] ([facility]) THERAPEUTIC PX 1/> AREAS EACH 15 MIN EXERCISES 12:00:00 AM EDT [facility] ([facility]) THERAPEUTIC PX 1/> AREAS EACH 15 MIN EXERCISES 12:00:00 AM EDT [facility] ([facility]) THERAPEUTIC PX 1/> AREAS EACH 15 MIN EXERCISES 12:00:00 AM EDT [facility] ([facility]) THERAPEUTIC PX 1/> AREAS EACH 15 MIN EXERCISES 12:00:00 AM EDT [facility] ([facility]) THERAPEUTIC PX 1/> AREAS EACH 15 MIN EXERCISES 12:00:00 AM EDT [facility] ([facility] ) THERAPEUTIC PX 1/> AREAS EACH 15 MIN EXERCISES 12:00:00 AM EDT [facility] ([facility]) THERAPEUTIC PX 1/> AREAS EACH 15 MIN EXERCISES 12:00:00 AM EDT [facility] ([facility] ) THERAPEUTIC PX 1/> AREAS EACH 15 MIN EXERCISES 12:00:00 AM EDT [facility] ([facility]) THERAPEUTIC PX 1/> AREAS EACH 15 MIN EXERCISES 12:00:00 AM EDT [facility] ([facility] ) THERAPEUTIC PX 1/> AREAS EACH 15 MIN EXERCISES 12:00:00 AM EDT [facility] ([facility]) Re-Eval Of PT Established Plan Of Care 20Mins Face To Face P T/Fam 02/08/2020 12:00:00 AM EDT [facility] ([facility]) THERAPEUTIC PX 1/> AREAS EACH 15 MIN EXERCISES 12:00:00 AM EDT [facility] ([facility]) THERAPEUTIC PX 1/> AREAS EACH 15 MIN EXERCISES 12:00:00 AM EDT [facility] ([facility] ) THERAPEUTIC PX 1/> AREAS EACH 15 MIN EXERCISES 12:00:00 AM EDT [facility] ([facility]) THERAPEUTIC PX 1/> AREAS EACH 15 MIN EXERCISES 12:00:00 AM EDT [facility] ([facility] ) THERAPEUTIC PX 1/> AREAS EACH 15 MIN EXERCISES 12:00:00 AM EDT [facility] ([facility]) THERAPEUTIC PX 1/> AREAS EACH 15 MIN EXERCISES 12:00:00 AM EDT [facility] ([facility]) THERAPEUTIC PX 1/> AREAS EACH 15 MIN EXERCISES 12:00:00 AM EDT [facility] ([facility] ) THERAPEUTIC PX 1/> AREAS EACH 15 MIN EXERCISES 12:00:00 AM EDT [facility] ([facility]) THERAPEUTIC PX 1/> AREAS EACH 15 MIN EXERCISES 12:00:00 AM EDT [facility] ([facility] ) THERAPEUTIC PX 1/> AREAS EACH 15 MIN EXERCISES 12:00:00 AM EDT [facility] ([facility] ) THERAPEUTIC PX 1/> AREAS EACH 15 MIN EXERCISES 12:00:00 AM EDT [facility] ([facility] ) THERAPEUTIC PX 1/> AREAS EACH 15 MIN EXERCISES 12:00:00 AM EDT [facility] ([facility] ) Physical Therapy Eval - Low Complexity 01/11/2020 12:0 0:00 AM EDT [facility] ([facility] ) CLAVICULECTOMY PARTIAL 12/10/2019 12:00:00 AM EDT [facility] ([facility] ) CLAVICULECTOMY PARTIAL 12/10/2019 12:00:00 AM EDT [facility] ([facility] ) PARTIAL REPAIR OR REMOVAL OF SHOULDER BONE 12/10/2019 12:00:00 AM EDT [facility] ([facility] ) Arthroscopy Shoulder Surgical With Rotator Cuff Repair 12/10/2019 12:00:00 AM EDT [facility] ([facility] ) Arthroscopy Shoulder Surgical W/Rotator Cuff Repair 12/10/2019 12:00:00 AM EDT [facility] ([facility] ) CLAVICULECTOMY PARTIAL 12/10/2019 12:00:00 AM EDT [facility] ([facility] ) PARTIAL REPAIR OR REMOVAL OF SHOULDER BONE 12/10/2019 12:00:00 AM EDT [facility] ([facility] ) Arthroscopy Shoulder Surgical With Rotator Cuff Repair 12/10/2019 12:00:00 AM EDT [facility] ([facility]) THERAPEUTIC PX 1/> AREAS EACH 15 MIN EXERCISES 12:00:00 AM EST [facility] ([facility] ) THERAPEUTIC PX 1/> AREAS EACH 15 MIN EXERCISES 12:00:00 AM EST [facility] ([facility] ) THERAPEUTIC PX 1/> AREAS EACH 15 MIN EXERCISES 12:00:00 AM EST [facility] ([facility] ) THERAPEUTIC PX 1/> AREAS EACH 15 MIN EXERCISES 12:00:00 AM EST [facility] ([facility] ) THERAPEUTIC PX 1/> AREAS EACH 15 MIN EXERCISES 12:00:00 AM EST [facility] ([facility] ) THERAPEUTIC PX 1/> AREAS EACH 15 MIN EXERCISES 12:00:00 AM EST [facility] ([facility] ) THERAPEUTIC PX 1/> AREAS EACH 15 MIN EXERCISES 12:00:00 AM EST [facility] ([facility] ) THERAPEUTIC PX 1/> AREAS EACH 15 MIN EXERCISES 12:00:00 AM EST [facility] ([facility] ) THERAPEUTIC PX 1/> AREAS EACH 15 MIN EXERCISES 12:00:00 AM EST [facility] ([facility] ) THERAPEUTIC PX 1/> AREAS EACH 15 MIN EXERCISES 12:00:00 AM EST [facility] ([facility] ) THERAPEUTIC PX 1/> AREAS EACH 15 MIN EXERCISES 12:00:00 AM EST [facility] ([facility] ) THERAPEUTIC PX 1/> AREAS EACH 15 MIN EXERCISES 12:00:00 AM EST [facility] ([facility] ) THERAPEUTIC PX 1/> AREAS EACH 15 MIN EXERCISES 12:00:00 AM EST [facility] ([facility] ) THERAPEUTIC PX 1/> AREAS EACH 15 MIN EXERCISES 12:00:00 AM EST [facility] ([facility] ) THERAPEUTIC PX 1/> AREAS EACH 15 MIN EXERCISES 12:00:00 AM EST [facility] ([facility] ) THERAPEUTIC PX 1/> AREAS EACH 15 MIN EXERCISES 12:00:00 AM EST [facility] ([facility] ) THERAPEUTIC PX 1/> AREAS EACH 15 MIN EXERCISES 12:00:00 AM EST [facility] ([facility] ) THERAPEUTIC PX 1/> AREAS EACH 15 MIN EXERCISES 12:00:00 AM EST [facility] ([facility] ) THERAPEUTIC PX 1/> AREAS EACH 15 MIN EXERCISES 12:00:00 AM EST [facility] ([facility] ) THERAPEUTIC PX 1/> AREAS EACH 15 MIN EXERCISES 12:00:00 AM EST [facility] ([facility] ) THERAPEUTIC PX 1/> AREAS EACH 15 MIN EXERCISES 12:00:00 AM EST [facility] ([facility] ) THERAPEUTIC PX 1/> AREAS EACH 15 MIN EXERCISES 12:00:00 AM EST [facility] ([facility] ) THERAPEUTIC PX 1/> AREAS EACH 15 MIN EXERCISES 12:00:00 AM EST [facility] ([facility] ) THERAPEUTIC PX 1/> AREAS EACH 15 MIN EXERCISES 12:00:00 AM EST [facility] ([facility] ) THERAPEUTIC PX 1/> AREAS EACH 15 MIN EXERCISES 12:00:00 AM EST [facility] ([facility] ) APPLICATION MODALITY 1/> AREAS HOT/COLD PACKS 07/01/20 12:00:00 AM EST [facility] ([facility] ) APPL MODALITY 1/> AREAS ELEC STIMJ EA 15 MIN 9 12:00:00 AM EST [facility] ([facility] ) THERAPEUTIC PX 1/> AREAS EACH 15 MIN EXERCISES 12:00:00 AM EST [facility] ([facility] ) THERAPEUTIC PX 1/> AREAS EACH 15 MIN EXERCISES 12:00:00 AM EST [facility] ([facility] ) Re-Eval Of PT Established Plan Of Care 20Mins Face To Face P T/Fam 07/01/2019 12:00:00 AM EST [facility] ([facility] APPL MODALITY 1/> AREAS ELEC STIMJ EA 15 MIN 9 12:00:00 AM EST [facility] ([facility]) THERAPEUTIC PX 1/> AREAS EACH 15 MIN EXERCISES 019 12:00:00 AM EST [facility] ([facility]) THERAPEUTIC PX 1/> AREAS EACH 15 MIN EXERCISES 019 12:00:00 AM EST [facility] ([facility]) APPLICATION MODALITY 1/> AREAS HOT/COLD PACKS 06/29/20 12:00:00 AM EST [facility] ([facility]) Results ID Date Data Source [id number] 07/21/2020 12:00:00 AM EST [facility] Bee Padrno MD Patient Name: ROB JAVIER [id number] [facility] [place] Date of : 1975 Date [facility]: [id number] Fax: [phone] EXAM: MRI THORACIC SPINE WITHOUT&WITH [...] by: Chase Bourne MD 07/21/2020 11:17 AM [facility] [facility] [place]VradV/adebayocTdorenek you for referring ROB JAVIER to our office. Electronically Signed - PHIL 07/21/20 11:20 Name Value Range Interpretation Code Description Data Jodee rce(s) Supporting Document(s) ID Date Data Source [id number] 07/10/2020 12:00:00 AM EST [facility] Name Value Range Interpretation Code Description Data Jodee rce(s) Supporting Document(s) SARS-CoV2 Rapid Antigen [facility] and reported by [facility]. ID Date Data Source [id number] 03/10/2020 09:32:07 AM EDT [facility] In-House Blood TestsDate/Time Colle cted: March 10, 2020 9:05 AMTest Result Reference Range Normal ValueComments: taken from right ac, tolerated well.Tameka Chadwick, March 10, 2020 9:32 AMAssessment & Plan Orders:[id number] Vst-Est Level I [CPT-52289] 62984 - Venipuncture [[id number]] Name Value Range Interpretation Code Description Data Jodee rce(s) Supporting Document(s) ID Date Data Source [id number] 03/10/2020 09:05:00 AM EDT [facility] Name Value Range Interpretation Code Description Data Jodee rce(s) Supporting Document(s) HGBA1C 5.2 % N [facility] ID Date Data Source [id number] 03/10/2020 09:05:00 AM EDT [facility] Name Value Range Interpretation Code Description Data Jodee rce(s) Supporting Document(s) BG FASTING 86 mg/dL 70-100 N [facility] T4, FREE 1.07 ng/dL 0.76-1.46 N [facility] TSH 1.390 microintl units/mL 0.358-3.740 N [facility] VIT D25 TOT 23.1 ng/mL 30.0-100.0 L [facility] ID Date Data Source [id number] 03/10/2020 09:05:00 AM EDT [facility] Name Value Range Interpretation Code Description Data Jodee rce(s) Supporting Document(s) HCT 40.8 % 36.0-47.0 N [facility] HGB 13.3 g/dL 12.0-15.5 N [facility] MCH 32.6 G/DL pg 32.0-36.5 N [facility] MCHC 28.7 PG % 27.0-33.0 N [facility] PLATELETS 369 10 10*3/mm3 150-450 N [facility] RBC 4.64 10 10*6/mm3 4.00-5.40 N [facility] RDW 13.2 % 11.5-14.5 N [facility] WBC TOTAL 6.4 4.0-10.0 N [facility] ID Date Data Source [id number] 03/09/2020 10:27:21 AM EDT [facility] Measurements & CalculationsHeight: 68 inches (5 ft. [...] BenderComplete Hysterectomy 2005 - Dr. Bender at [facility] shoulder x2 04/09/2019Family History:T2DM (cousin)HTN, HLD, [...] ONEAL, March 09, 2020 10:51 AMTransitions of [facility] InboundProblem ReviewProblem List was reviewed and/or updated during this visit.Medication Reconciliation & ReviewMedication List was reviewed and/or updated during this visit, including review of any dzrj-zqu-hdaamyl medications, herbal therapies, and/or supplements.Allergy ReviewAllergy List [...] GoodAssessment & Plan Problems:Added: BMI 24.0-24.9 (ICD-V85.1) (HYD16-K11.24)Intermittent palpitations (ICD-785.1) (BRJ14-Z44.2)Dizziness (ICD- 780.4) (STC14-N42) Assessment: Instructions: Update labs as ordered. Eat frequent small meals, remain well hydrated, healthy food choices.Nausea (ICD- 787.02) (KWB38-X47.0) Assessment: Instructions: As above. [place] diet.EKG:left ventricle hypertrophy (ICD-429.3) (OTG25-R58.31): 2017-[facility] Assessment: Instructions: EKG today confirms prior LVH from [facility] EKG in 2017. Consider cardiology referral for further evaluation.Assessed:Hypothyroidism (ICD-244.9) (XOH72-Q75.9) Assessment: Instructions: Update labs.Hyperlipidemia (ICD-272.4) (WHL91-Y26.5) Assessment: Instructions: Fasting labs have been ordered for you today. When labs are drawn, please ensure that you have had nothing to eat or drink for 8-10 hours prior to the blood drawn. Water or black coffee is OK to have before the blood draw.Asthma (ICD-493.90) (YBD24-M25.909) Assessment: Instructions: Continue current albuterol rescue inhaler.Removed:Otalgia, [...] Continue current albuterol rescue inhaler.Nausea: As above. [place] diet.EKG:left ventricle hypertrophy: EKG today confirms prior LVH from [facility] EKG in 2017. Consider cardiology referral for further evaluation. Plan developed in collaboration with patient and/or familyMedications:ALBUTEROL SULFATE HFA 108 (90 BASE) MCG/ACT INHALATION AEROSOL SOLUTIONMedication Changes:New Prescription:ALBUTEROL SULFATE HFA 108 (90 BASE) MCG/ACT INHALATION AEROSOL SOLUTION-Take 2 puffs oral inhalation q 4 hrs prn wheezing or shortness of breath Qty: 1[Inhaler] Refills: 5 Method: ElectronicRemoved:VITAMIN D (ERGOCALCIFEROL) 21730 UNIT ORAL CAPSULE-1 pill po weeklyAllergies:VICODIN (Moderate)* LATEX (Moderate)Orders:COMP METABOLIC PANEL [CPT-19924] CBC W/DIFF [CPT-38129] HgBA1c [CPT-25871] LIPID PANEL [CPT-03731] TSH [CPT-09545] T-4 free [CPT-08755] Vitamin D 250H Unspecified [CPT-79007] EKG; with interpretation and report [CPT-69706] Adult - Ofc Vst, EST, Level III [CPT-22552] Follow-Up Return to clinic: in 30 days for preventive care visitAdditional Follow-Up: annual PEClinical Visit Summary Declined Name Value Range Interpretation Code Description Data Jodee rce(s) Supporting Document(s) ID Date Data Source [id number] 12/10/2019 11:54:00 AM EDT [facility] ([facility]) Name Value Range Interpretation Code Description Data Jodee rce(s) Supporting Document(s) Surgical pathology study Laboratory test result [facility] ([facility] ) FINAL DIAGNOSIS Left distal [...] MD 12/13/2019 1351 ID Date Data Source [id number] 08/17/2019 12:00:00 AM EST [facility] Bee Padron MD Patient Name: LARISSA JAVIER1 [facility] [place] Date of : 1975 Date of Exam: 08/17/2019ALFONSO Ochoa [id number]#: Fax: [phone] EXAM: MRI SHOULDER LEFT W/O&W/CONTRAST [...] tear.Post surgical changes as above.Accredited by the [employer] in [place].Emir Roldan, MDDSG/adebayocTfaraz you for referring ROB JAVIER to our office. Electronically Signed - EMIR ROLDAN MD 08/18/19 9:33 Name Value Range Interpretation Code Description Data Jodee rce(s) Supporting Document(s) ID Date Data Source [id number] 08/17/2019 12:00:00 AM EST [facility] Bee Padron MD Patient Name: ROB JAVIER1571 [facility] [place] Date of : 1975 Date of Exam: 08/17/2019ALFONSO Ochoa [id number]#: Fax: [phone] EXAM: INJECTION PROCEDURE FOR SHOULDER [...] 75% reduction in radiation.Dictated by Bee Lord, MESHA, with Dr. Roldan.Emir Roldan, [facility]CTICUTSG/jmcThank you for referring ROB JAVIER to our office. Electronically Signed - EMIR ROLDAN MD 08/18/19 9:36 Name Value Range Interpretation Code Description Data Jodee rce(s) Supporting Document(s) ID Date Data Source [id number] 08/17/2019 12:00:00 AM [facility] Bee Padron MD Patient Name: LARISSA JAVIER1 [facility] [place] Date of : 1975 201 [facility]: [facility] [id number] Fax: [phone] EXAM: INJECTION PROCEDURE FOR SHOULDER ARTHROGRAMCLINICAL INFORMATION: Superior glenoid labral lesion of the leftshoulder. Rule out re-tear of the rotator cuff.The procedure was performed by Bee Lord [facility], under the directsupervision of Dr. Roldan.The benefits [...] 75% reduction in radiation.Dictated by Bee Lord [facility], with Dr. Roldan.Emir Roldan, JAQUAN/adebayocTfaraz you for referring ROB JAVIER to our office. Electronically Signed - EMIR ROLDAN MD 08/18/19 9:36 Name Value Range Interpretation Code Description Data Jodee rce(s) Supporting Document(s) Procedure Social History Code Duration Value Status Description Data Source(s ) Smoking 09/14/2019 12:00:00 AM EST Patient has never smoked co mpleted Patient has never smoked [facility] ([facility] ) Vital Signs ID Date Data Source UNK Name Value Range Interpretation Code Description Data Source(s) Body temperature 97.3 [degF] 97.3 [degF] [facility] ([facility] )
--- NOTE | 2020-08-23 13:42 | REP ---
INDICATION: renal colic COMPARISON: 06/04/2018. TECHNIQUE: CT Scan of the abdomen and pelvis was performed without intravenous contrast. Sagittal and coronal reconstruction images performed. FINDINGS: Lung bases: There is no infiltrate visualized. There is a small hiatal hernia. Liver: Grossly unremarkable. Gallbladder: Unremarkable. Spleen: Grossly unremarkable.. Adrenals: Normal. Pancreas: Grossly unremarkable.. Kidneys: In the mid right pelvocaliceal system there is a punctate calcification in the lower pole there is a 5 mm calcification. In the left upper pole pelvocaliceal system there is a punctate calcification in the lower pole there are 2 or 3 punctate calcifications as well as a 6 mm calcification. There is no right hydronephrosis. There is very mild left hydroureteronephrosis. However, no ureteral calculus is seen. This very mild left hydroureteronephrosis may be due to a recently passed calculus. Small and large bowel: Grossly unremarkable.. Free fluid: None. Abdominal aorta: No aneurysm. Adenopathy: None. Appendix: There has been a prior appendectomy. Osseous structures: Unremarkable. Pelvis: No mass. No bladder calculus seen. There has been a prior hysterectomy. IMPRESSION: Bilateral intrarenal calculi as discussed above. There is very mild left hydroureteronephrosis but no ureteral or bladder calculus is seen. This very mild left hydroureteronephrosis may be due to a recently passed calculus. <Electronically signed by Emir Roldan > 08/23/20 [id number]
[2020-08-23 14:06] LABS: ALBUMIN 4.1 GM/DL (3.2-5.2); ALT/SGPT 26 U/L (12-78); BILIRUBIN,DIRECT 0.1 MG/DL (0.0-0.2); BILIRUBIN,TOTAL 0.7 MG/DL (0.2-1.0); BLOOD UREA NITROGEN 8 MG/DL (7-18); CALCIUM LEVEL 9.8 MG/DL (8.5-10.1); CARBON DIOXIDE LEVEL 29 MEQ/L (21-32); CHLORIDE LEVEL 106 MEQ/L (98-107); CREATININE FOR GFR 0.65 MG/DL (0.55-1.30); GLOMERULAR FILTRATION RATE > 60.0 (>58); GLUCOSE, FASTING 89 MG/DL (70-100); LIPASE 138 U/L (73-393); SODIUM LEVEL 140 MEQ/L (136-145)
[2020-08-23 14:29] LABS: BASO % 0.5 % (0.0-1.0); EOS % 0.3 % (0.0-3.0); HEMATOCRIT 41.7 % (36.0-47.0); HEMOGLOBIN 13.4 g/dl (12.0-15.5); LYMPH # 1.7 10^3/uL (1.5-5.0); LYMPH % 18.8 % (24.0-44.0); MEAN CORPUSCULAR HEMOGLOBIN 28.1 pg (27.0-33.0); MEAN CORPUSCULAR HGB CONC 32.1 g/dl (32.0-36.5); MEAN CORPUSCULAR VOLUME 87.4 fl (80.0-96.0); MONO # 0.6 10^3/uL (0.0-0.8); MONO % 6.5 % (0.0-5.0); NEUTROPHILS # 6.5 10^3/uL (1.5-8.5); NEUTROPHILS % 73.3 % (36.0-66.0); PLATELET COUNT, AUTOMATED 374 10^3/uL (150-450); RED BLOOD COUNT 4.77 10^6/uL (4.00-5.40); WHITE BLOOD COUNT 8.9 10^3/uL (4.0-10.0)
[2020-08-23 14:42] VITALS: BP 145/84
== END 2020-08-23 14:44 | disposition home or self-care (01) ==
LOC: M ED 11:55
DX: N20.1 Calculus of ureter (principal); G89.29 Other chronic pain; Z87.442 Personal history of urinary calculi; F17.200 Nicotine dependence, unspecified, uncomplicated; J30.89 Other allergic rhinitis; Z88.5 Allergy status to narcotic agent; Z91.040 Latex allergy status
CPT/HCPCS: 74176; 80048; 80076; 81001; 83690; 85025; 87086; 96361; 96374; 96375; 99284; J1885; J2405

== ENCOUNTER → 2022-08-26 | Outpatient (CLI) | payer OTHER | LOC: M WHC 12:16 | PROVIDERS: ATTEND Physician Assistant | DX: Z12.31 Encounter for screening mammogram for malignant neoplasm of breast (principal); Z87.442 Personal history of urinary calculi ==

== ENCOUNTER → 2022-08-27 | Outpatient (REF) | payer OTHER ==
[2022-08-27 17:45] LABS: ALBUMIN 3.6 G/DL (3.2-5.2); ALKALINE PHOSPHATASE 116 U/L (46-116); ALT/SGPT 20 U/L (7.0-40); AST/SGOT 17 U/L (<34); BILIRUBIN,TOTAL 0.5 MG/DL (0.3-1.2); BLOOD UREA NITROGEN 9 MG/DL (9-23); CALCIUM LEVEL 9.2 MG/DL (8.5-10.1); CARBON DIOXIDE LEVEL 28 MMOL/L (20-31); CHLORIDE LEVEL 104 MMOL/L (98-107); CHOLESTEROL LEVEL 181 MG/DL (<200); CHOLESTEROL RISK RATIO 3.77 (<5); CREATININE FOR GFR 0.58 MG/DL (0.55-1.30); GLOMERULAR FILTRATION RATE > 60.0 (>58); GLUCOSE, FASTING 92 MG/DL (60-100); HEMATOCRIT 43.3 % (36.0-47.0); HEMOGLOBIN 13.7 g/dl (12.0-15.5); LDL CHOLESTEROL 115.4 MG/DL (<100); MEAN CORPUSCULAR HEMOGLOBIN 28.1 pg (27.0-33.0); MEAN CORPUSCULAR HGB CONC 31.6 g/dl (32.0-36.5); MEAN CORPUSCULAR VOLUME 88.7 fl (80.0-96.0); NON-HDL-C 133 MG/DL; PLATELET COUNT, AUTOMATED 392 10^3/uL (150-450); POTASSIUM SERUM 4.2 MMOL/L (3.5-5.1); RED BLOOD COUNT 4.88 10^6/uL (4.00-5.40); SODIUM LEVEL 139 MMOL/L (136-145); THYROID STIMULATING HORMONE 0.966 uIU/ML (0.55-4.78); TOTAL 25(OH) VITAMIN D 18.5 NG/ML (20.0-100.0); TOTAL PROTEIN 7.2 G/DL (5.7-8.2); TRIGLYCERIDES LEVEL 88 MG/DL (<150); WHITE BLOOD COUNT 5.7 10^3/uL (4.0-10.0)
[2022-08-27 18:13] LABS: HIV 1&2 SCREEN CENTAUR NEGATIVE (NEGATIVE)
== END ==
LOC: M LAB REF 16:16
PROVIDERS: ATTEND Physician Assistant
DX: R03.0 Elevated blood-pressure reading, without diagnosis of hypertension (principal); Z11.59 Encounter for screening for other viral diseases; Z11.4 Encounter for screening for human immunodeficiency virus [HIV]; E55.9 Vitamin D deficiency, unspecified; E78.5 Hyperlipidemia, unspecified; E03.9 Hypothyroidism, unspecified

== ENCOUNTER → 2022-09-02 | Outpatient (CLI) | payer OTHER | LOC: M EKG 11:18 | PROVIDERS: ATTEND Physician Assistant | DX: R94.31 Abnormal electrocardiogram [ECG] [EKG] (principal) ==

== ENCOUNTER → 2022-09-19 | Outpatient (CLI) | payer OTHER | LOC: M WHC 11:00 | PROVIDERS: ATTEND Physician Assistant | DX: Z13.820 Encounter for screening for osteoporosis (principal); M85.89 Other specified disorders of bone density and structure, multiple sites; M85.851 Other specified disorders of bone density and structure, right thigh; M85.852 Other specified disorders of bone density and structure, left thigh ==

== ENCOUNTER → 2022-11-01 | Outpatient (CLI) | payer OTHER ==
[~2022-11-01] MED LIST changes: +ALEN70TA82 PO; +D3 S1CAP3 PO; +DULO1CAP6 PO
== END ==
LOC: M LABSMTC 08:33
PROVIDERS: ATTEND Anesthesiology
DX: Z01.812 Encounter for preprocedural laboratory examination (principal); Z20.822 Contact with and (suspected) exposure to COVID-19

== ENCOUNTER 2022-11-06 09:40 | Day surgery (SDC) | payer OTHER ==
[~2022-11-06] VITALS: Ht 160 cm; Wt 70.8 kg
[~2022-11-06 09:40] MED LIST changes: +NS 1,000 ML IV ONE
[2022-11-06] MEDS ORDERED: propofoL 200 MG/20 ML VIAL As Ordered ONE ×2 (10:27→10:43)
[2022-11-06 11:07] VITALS: BP 158/86
== END 2022-11-06 11:08 | disposition home or self-care (01) ==
LOC: M OPP 09:40
PROVIDERS: ATTEND Surgery
DX: Z80.0 Family history of malignant neoplasm of digestive organs (principal); Z12.11 Encounter for screening for malignant neoplasm of colon; K64.0 First degree hemorrhoids; I10 Essential (primary) hypertension; Z79.83 Long term (current) use of bisphosphonates; Z79.899 Other long term (current) drug therapy; Z91.040 Latex allergy status; Z88.5 Allergy status to narcotic agent

== ENCOUNTER → 2022-12-13 | Outpatient (CLI) | payer OTHER ==
[~2022-12-13] MED LIST changes: -NS 1,000 ML IV ONE
== END ==
LOC: M PLAIMG 08:27
PROVIDERS: ATTEND Nurse Practitioner Family
DX: M54.12 Radiculopathy, cervical region (principal); M25.78 Osteophyte, vertebrae

== ENCOUNTER → 2023-01-16 | Outpatient (CLI) | payer OTHER | LOC: M PAIN 13:00 | PROVIDERS: ATTEND Nurse Practitioner Family | DX: M79.12 Myalgia of auxiliary muscles, head and neck (principal); D64.9 Anemia, unspecified; G89.29 Other chronic pain; M54.2 Cervicalgia; M25.512 Pain in left shoulder; Z79.899 Other long term (current) drug therapy; Z88.5 Allergy status to narcotic agent; Z91.040 Latex allergy status ==

== ENCOUNTER → 2023-04-29 | Outpatient (CLI) | payer OTHER ==
[~2023-04-29] MED LIST changes: +TRIAMCINOLONE ACETONIDE SUSP 40MG/ML 1ML VIAL As Ordered ONE
== END ==
LOC: M PAIN 08:30
PROVIDERS: ATTEND Anesthesiology
DX: M79.10 Myalgia, unspecified site (principal); G89.29 Other chronic pain; Z88.5 Allergy status to narcotic agent; Z91.040 Latex allergy status; Z79.899 Other long term (current) drug therapy
CPT/HCPCS: 20553; J0665; J3301

== ENCOUNTER → 2023-06-11 | Outpatient (CLI) | payer OTHER ==
[~2023-06-11] MED LIST changes: -TRIAMCINOLONE ACETONIDE SUSP 40MG/ML 1ML VIAL As Ordered ONE
== END ==
LOC: M PAIN 10:00
PROVIDERS: ATTEND Anesthesiology
DX: M79.10 Myalgia, unspecified site (principal); M25.512 Pain in left shoulder; M54.2 Cervicalgia; Z88.5 Allergy status to narcotic agent; Z91.040 Latex allergy status; Z79.899 Other long term (current) drug therapy

== ENCOUNTER → 2023-09-11 | Outpatient (CLI) | payer OTHER | LOC: M PAIN 09:15 | PROVIDERS: ATTEND Nurse Practitioner Family | DX: M79.12 Myalgia of auxiliary muscles, head and neck (principal); G89.29 Other chronic pain; Z79.899 Other long term (current) drug therapy; Z88.5 Allergy status to narcotic agent; Z91.040 Latex allergy status ==

== ENCOUNTER → 2023-10-30 | Outpatient (CLI) | payer OTHER | LOC: M PAIN 15:00 | PROVIDERS: ATTEND Nurse Practitioner Family | DX: M54.12 Radiculopathy, cervical region (principal); M25.512 Pain in left shoulder; Z79.51 Long term (current) use of inhaled steroids; Z79.83 Long term (current) use of bisphosphonates; Z88.5 Allergy status to narcotic agent; Z91.040 Latex allergy status ==

== ENCOUNTER → 2023-12-11 | Outpatient (CLI) | payer OTHER | LOC: M PAIN 10:00 | PROVIDERS: ATTEND Nurse Practitioner Family | DX: M47.812 Spondylosis without myelopathy or radiculopathy, cervical region (principal); G89.29 Other chronic pain; D64.9 Anemia, unspecified; Z79.899 Other long term (current) drug therapy; Z88.5 Allergy status to narcotic agent; Z91.040 Latex allergy status ==

== ENCOUNTER → 2024-01-07 | Outpatient (CLI) | payer OTHER | LOC: M RAD 14:45 | PROVIDERS: ATTEND Physician Assistant | DX: M25.551 Pain in right hip (principal) ==

== ENCOUNTER → 2024-01-15 | Outpatient (CLI) | payer OTHER ==
[~2024-01-15] MED LIST changes: +ALBU8.5H; +DULO1CAP5 PO; +IBUP80TA; +ONDA-282; +TAMS1CAP17 PO
[2024-01-15 15:00] LABS: APPEARANCE, URINE HAZY (CLEAR); BACTERIA, URINE AUTO NEGATIVE (NEGATIVE); BILIRUBIN, URINE AUTO NEGATIVE (NEGATIVE); BLOOD, URINE BLOOD 1+ (NEGATIVE); CALCIUM OXALATE CRYSTALS LARGE; COLOR, URINE YELLOW (YELLOW); GLUCOSE, URINE (UA) AUTO 1+ mg/dL (NEGATIVE); KETONE, URINE AUTO TRACE mg/dL (NEGATIVE); LEUKOCYTE ESTERASE, URINE AUTO 2+ (NEGATIVE); MUCUS, URINE SMALL (NEGATIVE); NITRITE, URINE AUTO NEGATIVE (NEGATIVE); PROTEIN, URINE AUTO 1+ mg/dL (NEGATIVE); RBC, URINE AUTO 7 /HPF (0-3); SPECIFIC GRAVITY URINE AUTO 1.019 (1.002-1.035); SQUAMOUS EPITHELIAL CELL UR AU 2 /HPF (0-6); UROBILINOGEN, URINE AUTO 0.2 mg/dL (0.0-2.0); WBC, URINE AUTO 13 /HPF (0-3)
[2024-01-15 15:08] LABS: HEMATOCRIT 39.1 % (36.0-47.0); HEMOGLOBIN 12.7 g/dl (12.0-15.5); MEAN CORPUSCULAR HEMOGLOBIN 28.5 pg (27.0-33.0); MEAN CORPUSCULAR HGB CONC 32.5 g/dl (32.0-36.5); MEAN CORPUSCULAR VOLUME 87.9 fl (80.0-96.0); PLATELET COUNT, AUTOMATED 382 10^3/uL (150-450); RED BLOOD COUNT 4.45 10^6/uL (4.00-5.40)
[2024-01-15 15:30] LABS: BLOOD UREA NITROGEN 11 MG/DL (9-23); CALCIUM LEVEL 9.3 MG/DL (8.5-10.1); CARBON DIOXIDE LEVEL 29 MMOL/L (20-31); CHLORIDE LEVEL 108 MMOL/L (98-107); CREATININE FOR GFR 0.65 MG/DL (0.55-1.30); GLOMERULAR FILTRATION RATE > 60.0 (>58); GLUCOSE, FASTING 98 MG/DL (60-100); POTASSIUM SERUM 3.5 MMOL/L (3.5-5.1); SODIUM LEVEL 143 MMOL/L (136-145)
== END ==
LOC: M EKG 14:08
PROVIDERS: ATTEND Specialist
DX: Z01.818 Encounter for other preprocedural examination (principal)

== ENCOUNTER 2024-01-22 09:25 | Day surgery (SDC) | payer OTHER ==
[~2024-01-22] VITALS: Ht 160 cm; Wt 69.9 kg
[2024-01-22] MEDS: SCOPOLAMINE 1MG TRANSDERMAL PATCH TOP ONE (11:17)
[2024-01-22] MEDS: LR 1,000 ML IV SCH (11:18)
[2024-01-22] MEDS ORDERED: MIDAZOLAM INJ 2MG/2ML VIAL As Ordered ONE (11:21)
[2024-01-22] MEDS ORDERED: propofoL 200 MG/20 ML VIAL As Ordered ONE (11:21)
[2024-01-22] MEDS ORDERED: LIDOCAINE 2% 100MG/5ML SDV (FOR ANES.) As Ordered ONE (11:21)
[2024-01-22] MEDS ORDERED: fentaNYL 100 MCG/2 ML INJECTION As Ordered ONE (11:21)
[2024-01-22] MEDS: ceFAZolin SOD 2 GM in IV 1 EA IV ONE (11:59)
[2024-01-22] MEDS ORDERED: OXYC1TAB23 PO (12:14)
[2024-01-22] MEDS ORDERED: FLOM0.4C39 PO (12:14)
[2024-01-22] MEDS ORDERED: ACETAMINOPHEN 1000MG 100ML IV BAG As Ordered ONE (12:16)
[2024-01-22] MEDS ORDERED: ONDANSETRON 4MG 2ML VIAL As Ordered ONE (12:16)
[2024-01-22 13:25] VITALS: BP 137/92; TEMP 97.1; O2SAT 99
== END 2024-01-22 13:30 | disposition home or self-care (01) ==
LOC: M SDC 09:25
PROVIDERS: ATTEND Urology
DX: N13.2 Hydronephrosis with renal and ureteral calculous obstruction (principal); I10 Essential (primary) hypertension; Z86.718 Personal history of other venous thrombosis and embolism; J45.909 Unspecified asthma, uncomplicated; Z87.442 Personal history of urinary calculi; Z79.899 Other long term (current) drug therapy; Z88.5 Allergy status to narcotic agent; Z90.710 Acquired absence of both cervix and uterus; G62.9 Polyneuropathy, unspecified; Z91.040 Latex allergy status
CPT/HCPCS: 50590; 74018; J0131; J0690; J1100; J2250; J2405; J3010

== ENCOUNTER → 2024-01-29 | Outpatient (REF) | payer OTHER ==
[~2024-01-29] MED LIST changes: +OXYC1TAB23 PO
[2024-01-29 17:13] LABS: ALBUMIN 3.5 G/DL (3.2-5.2); ALKALINE PHOSPHATASE 88 U/L (46-116); ALT/SGPT 20 U/L (7.0-40); AST/SGOT < 8 U/L (<34); BILIRUBIN,TOTAL 0.6 MG/DL (0.3-1.2); BLOOD UREA NITROGEN 12 MG/DL (9-23); CALCIUM LEVEL 9.1 MG/DL (8.5-10.1); CARBON DIOXIDE LEVEL 27 MMOL/L (20-31); CHLORIDE LEVEL 109 MMOL/L (98-107); CHOLESTEROL LEVEL 189 MG/DL (<200); CREATININE FOR GFR 0.53 MG/DL (0.55-1.30); GLOMERULAR FILTRATION RATE > 60.0 (>58); GLUCOSE, FASTING 97 MG/DL (60-100); LDL CHOLESTEROL 129.2 MG/DL (<100); PHOSPHORUS LEVEL 2.1 MG/DL (2.5-4.9); POTASSIUM SERUM 4.3 MMOL/L (3.5-5.1); SODIUM LEVEL 140 MMOL/L (136-145); TOTAL PROTEIN 6.7 G/DL (5.7-8.2); TRIGLYCERIDES LEVEL 69 MG/DL (<150)
[2024-01-29 17:14] LABS: THYROID STIMULATING HORMONE 0.557 uIU/ML (0.55-4.78); TOTAL 25(OH) VITAMIN D 25.5 NG/ML (20.0-100.0)
[2024-01-29 17:15] LABS: FREE T4 1.04 NG/DL (0.89-1.76)
[2024-01-29 18:13] LABS: HEMOGLOBIN A1c 4.9 % (4.0-6.0)
== END ==
LOC: M LAB REF 16:30
PROVIDERS: ATTEND Nurse Practitioner Family
DX: R00.2 Palpitations (principal); Z83.3 Family history of diabetes mellitus; E55.9 Vitamin D deficiency, unspecified; E87.6 Hypokalemia; E78.5 Hyperlipidemia, unspecified; Z83.49 Family history of other endocrine, nutritional and metabolic diseases; Z13.29 Encounter for screening for other suspected endocrine disorder

== ENCOUNTER → 2024-02-04 | Outpatient (CLI) | payer OTHER | LOC: M RAD 17:00 | PROVIDERS: ATTEND Specialist | DX: N20.0 Calculus of kidney (principal); K59.00 Constipation, unspecified ==

== ENCOUNTER → 2024-02-20 | Outpatient (REF) | payer OTHER | LOC: M SMT 17:04 | PROVIDERS: ATTEND Physician Assistant | DX: Z48.816 Encounter for surgical aftercare following surgery on the genitourinary system (principal) ==

== ENCOUNTER → 2024-02-25 | Outpatient (CLI) | payer OTHER | LOC: M PAIN 11:00 | PROVIDERS: ATTEND Anesthesiology | DX: M47.812 Spondylosis without myelopathy or radiculopathy, cervical region (principal); M25.512 Pain in left shoulder; G89.29 Other chronic pain; D64.9 Anemia, unspecified; I10 Essential (primary) hypertension; K21.9 Gastro-esophageal reflux disease without esophagitis; G43.909 Migraine, unspecified, not intractable, without status migrainosus; N28.9 Disorder of kidney and ureter, unspecified; Z79.899 Other long term (current) drug therapy; Z88.5 Allergy status to narcotic agent; Z91.040 Latex allergy status | CPT/HCPCS: 76000; G0463 ==

== ENCOUNTER → 2024-02-27 | Outpatient (REF) | payer OTHER | LOC: M LAB REF 16:19 | PROVIDERS: ATTEND Physician Assistant | DX: E83.39 Other disorders of phosphorus metabolism (principal) ==

== ENCOUNTER → 2024-03-16 | Outpatient (CLI) | payer OTHER ==
[~2024-03-16] MED LIST changes: +VITA200016 PO
[2024-03-16 18:22] LABS: HEMATOCRIT 38.4 % (36.0-47.0); HEMOGLOBIN 12.6 g/dl (12.0-15.5); MEAN CORPUSCULAR HGB CONC 32.8 g/dl (32.0-36.5); MEAN CORPUSCULAR VOLUME 88.3 fl (80.0-96.0); PLATELET COUNT, AUTOMATED 363 10^3/uL (150-450); RED BLOOD COUNT 4.35 10^6/uL (4.00-5.40); WHITE BLOOD COUNT 7.5 10^3/uL (4.0-10.0)
[2024-03-16 18:53] LABS: BLOOD UREA NITROGEN 9 MG/DL (9-23); CARBON DIOXIDE LEVEL 28 MMOL/L (20-31); CHLORIDE LEVEL 107 MMOL/L (98-107); CREATININE FOR GFR 0.54 MG/DL (0.55-1.30); GLOMERULAR FILTRATION RATE > 60.0 (>51); GLUCOSE, FASTING 101 MG/DL (60-100); POTASSIUM SERUM 3.3 MMOL/L (3.5-5.1); SODIUM LEVEL 143 MMOL/L (136-145)
== END ==
LOC: M LAB 17:11
PROVIDERS: ATTEND Physician Assistant
DX: Z01.818 Encounter for other preprocedural examination (principal)

== ENCOUNTER 2024-03-18 06:39 | Day surgery (SDC) | payer OTHER ==
[~2024-03-18] VITALS: Ht 160 cm; Wt 70.2 kg
[2024-03-18] MEDS ORDERED: LIDOCAINE 2% 100MG/5ML SDV (FOR ANES.) As Ordered ONE (08:12)
[2024-03-18] MEDS ORDERED: ACETAMINOPHEN 1000MG 100ML IV BAG As Ordered ONE (08:12)
[2024-03-18] MEDS ORDERED: KETOROLAC 60MG 2ML VIAL As Ordered ONE (08:12)
[2024-03-18] MEDS ORDERED: propofoL 200 MG/20 ML VIAL As Ordered ONE (08:12)
[2024-03-18] MEDS: ceFAZolin SOD 2 GM in IV 1 EA IV ONE (08:44)
[2024-03-18 10:11] VITALS: BP 169/89; TEMP 97.1; O2SAT 100
== END 2024-03-18 10:14 | disposition home or self-care (01) ==
LOC: M SDC 06:39
PROVIDERS: ATTEND Urology
DX: N20.0 Calculus of kidney (principal); I10 Essential (primary) hypertension; K21.9 Gastro-esophageal reflux disease without esophagitis; N30.10 Interstitial cystitis (chronic) without hematuria; Z86.718 Personal history of other venous thrombosis and embolism; N81.0 Urethrocele; Z79.51 Long term (current) use of inhaled steroids; M25.512 Pain in left shoulder; Z79.899 Other long term (current) drug therapy; J45.909 Unspecified asthma, uncomplicated; J30.2 Other seasonal allergic rhinitis; Z88.5 Allergy status to narcotic agent; Z91.040 Latex allergy status
CPT/HCPCS: 50590; 74018; J0131; J0690; J1885

== ENCOUNTER → 2024-04-02 | Outpatient (CLI) | payer OTHER | LOC: M PLARAD 12:41 | PROVIDERS: ATTEND Orthopaedic Surgery | DX: M25.551 Pain in right hip (principal) ==

== ENCOUNTER → 2024-04-08 | Outpatient (CLI) | payer OTHER | LOC: M RAD 16:27 | PROVIDERS: ATTEND Urology | DX: N20.0 Calculus of kidney (principal) ==

== ENCOUNTER → 2024-04-26 | Outpatient (REF) | payer OTHER | LOC: M LAB REF 16:16 | PROVIDERS: ATTEND Physician Assistant | DX: E83.39 Other disorders of phosphorus metabolism (principal) ==

== ENCOUNTER → 2024-04-28 | Outpatient (CLI) | payer OTHER | LOC: M PAIN 09:45 | PROVIDERS: ATTEND Anesthesiology | DX: M54.2 Cervicalgia (principal); M79.10 Myalgia, unspecified site; M79.18 Myalgia, other site; G89.29 Other chronic pain; D64.9 Anemia, unspecified; I10 Essential (primary) hypertension; K21.9 Gastro-esophageal reflux disease without esophagitis; G43.909 Migraine, unspecified, not intractable, without status migrainosus; Z79.899 Other long term (current) drug therapy; Z88.5 Allergy status to narcotic agent; Z91.040 Latex allergy status ==

== ENCOUNTER → 2024-05-20 | Outpatient (CLI) | payer OTHER ==
[2024-05-20 18:52] LABS: CALCIUM LEVEL 9.7 MG/DL (8.5-10.1); PHOSPHORUS LEVEL 3.7 MG/DL (2.5-4.9); PTH INTACT 148.9 PG/ML (18.5-88.0)
[2024-05-20 18:55] LABS: TOTAL 25(OH) VITAMIN D 34.1 NG/ML (20.0-100.0)
[2024-05-21 13:37] LABS: POTASSIUM SERUM 3.9 MMOL/L (3.5-5.1)
== END ==
LOC: M LAB 16:49
PROVIDERS: ATTEND Physician Assistant
DX: E83.39 Other disorders of phosphorus metabolism (principal); I10 Essential (primary) hypertension

== ENCOUNTER → 2024-06-29 | Outpatient (CLI) | payer OTHER | LOC: M PAIN 17:00 | PROVIDERS: ATTEND Nurse Practitioner Family | DX: M50.10 Cervical disc disorder with radiculopathy, unspecified cervical region (principal); G89.29 Other chronic pain; D64.9 Anemia, unspecified; I10 Essential (primary) hypertension; K21.9 Gastro-esophageal reflux disease without esophagitis; G43.909 Migraine, unspecified, not intractable, without status migrainosus; Z79.899 Other long term (current) drug therapy; Z88.5 Allergy status to narcotic agent; Z91.040 Latex allergy status ==

== ENCOUNTER → 2024-07-01 | Outpatient (CLI) | payer OTHER ==
[2024-07-01 11:49] LABS: BLOOD UREA NITROGEN 10 MG/DL (9-23); CALCIUM LEVEL 9.4 MG/DL (8.5-10.1); CARBON DIOXIDE LEVEL 30 MMOL/L (20-31); CHLORIDE LEVEL 108 MMOL/L (98-107); CREATININE FOR GFR 0.67 MG/DL (0.55-1.30); GLOMERULAR FILTRATION RATE > 60.0 (>51); GLUCOSE, FASTING 85 MG/DL (60-100); PHOSPHORUS LEVEL 1.8 MG/DL (2.5-4.9); POTASSIUM SERUM 3.9 MMOL/L (3.5-5.1); SODIUM LEVEL 144 MMOL/L (136-145)
[2024-07-01 11:50] LABS: PTH INTACT 189.2 PG/ML (18.5-88.0)
== END ==
LOC: M LAB 10:37
PROVIDERS: ATTEND Physician Assistant
DX: E83.39 Other disorders of phosphorus metabolism (principal); I10 Essential (primary) hypertension

== ENCOUNTER → 2024-07-02 | Outpatient (REF) | payer OTHER | LOC: M LAB REF 16:57 | PROVIDERS: ATTEND Internal Medicine Nephrology | DX: E83.39 Other disorders of phosphorus metabolism (principal) ==

== ENCOUNTER → 2024-08-06 | Outpatient (CLI) | payer OTHER | LOC: M RAD 09:48 | PROVIDERS: ATTEND Internal Medicine Nephrology | DX: E21.0 Primary hyperparathyroidism (principal) | CPT/HCPCS: 78070; 78803; A9500 ==

== ENCOUNTER → 2024-08-13 | Outpatient (CLI) | payer OTHER | LOC: M PAIN 10:15 | PROVIDERS: ATTEND Nurse Practitioner Family | DX: M50.10 Cervical disc disorder with radiculopathy, unspecified cervical region (principal); M47.812 Spondylosis without myelopathy or radiculopathy, cervical region; G89.29 Other chronic pain; D64.9 Anemia, unspecified; I10 Essential (primary) hypertension; K21.9 Gastro-esophageal reflux disease without esophagitis; G43.909 Migraine, unspecified, not intractable, without status migrainosus; Z79.899 Other long term (current) drug therapy; Z88.5 Allergy status to narcotic agent; Z91.040 Latex allergy status ==

== ENCOUNTER → 2024-08-24 | Outpatient (CLI) | payer OTHER ==
[2024-08-24 17:38] LABS: FREE T4 1.05 NG/DL (0.89-1.76)
[2024-08-24 17:39] LABS: THYROID STIMULATING HORMONE 1.568 uIU/ML (0.55-4.78)
== END ==
LOC: M EKG 16:25
PROVIDERS: ATTEND Physician Assistant
DX: I10 Essential (primary) hypertension (principal); R00.2 Palpitations

== ENCOUNTER → 2024-10-15 | Outpatient (REF) | payer OTHER | LOC: M LAB REF 16:38 | PROVIDERS: ATTEND Physician Assistant | DX: R35.0 Frequency of micturition (principal) ==

== ENCOUNTER → 2024-10-21 | Outpatient (CLI) | payer OTHER | LOC: M WHC 08:46 | PROVIDERS: ATTEND Physician Assistant | DX: N63.20 Unspecified lump in the left breast, unspecified quadrant (principal); R92.322 Mammographic fibroglandular density, left breast ==

== ENCOUNTER → 2024-11-05 | Outpatient (CLI) | payer OTHER | LOC: M WHC 11:10 | PROVIDERS: ATTEND Nurse Practitioner Family | DX: Z13.820 Encounter for screening for osteoporosis (principal); M85.851 Other specified disorders of bone density and structure, right thigh; M85.852 Other specified disorders of bone density and structure, left thigh; M85.88 Other specified disorders of bone density and structure, other site ==

== ENCOUNTER → 2024-11-24 | Outpatient (CLI) | payer OTHER ==
[2024-11-24 11:45] LABS: BLOOD UREA NITROGEN 13 MG/DL (9-23); CALCIUM LEVEL 9.1 MG/DL (8.5-10.1); CARBON DIOXIDE LEVEL 31 MMOL/L (20-31); CHLORIDE LEVEL 104 MMOL/L (98-107); CREATININE FOR GFR 0.63 MG/DL (0.55-1.30); GLOMERULAR FILTRATION RATE > 90.0 (>51); GLUCOSE, FASTING 75 MG/DL (60-100); POTASSIUM SERUM 3.5 MMOL/L (3.5-5.1); SODIUM LEVEL 144 MMOL/L (136-145)
== END ==
LOC: M LAB 10:55
PROVIDERS: ATTEND Surgery
DX: E21.3 Hyperparathyroidism, unspecified (principal)

== ENCOUNTER → 2025-03-24 | Outpatient (CLI) | payer OTHER ==
[~2025-03-24] MED LIST changes: -FLOM0.4C39 PO; +TAMS-18 PO
[2025-03-24 14:42] LABS: BASO # 0.0 10^3/uL (0.0-0.2); BASO % 0.4 % (0.0-1.0); EOS # 0.1 10^3/uL (0.0-0.5); EOS % 1.1 % (0.0-3.0); LYMPH # 1.8 10^3/uL (1.5-5.0); LYMPH % 25.6 % (24.0-44.0); MONO # 0.5 10^3/uL (0.0-0.8); MONO % 7.2 % (2.0-8.0); NEUTROPHILS # 4.6 10^3/uL (1.5-8.5); NEUTROPHILS % 65.3 % (36.0-66.0); PLATELET COUNT, AUTOMATED 387 10^3/uL (150-450)
[2025-03-24 15:06] LABS: ALT/SGPT 19 U/L (7.0-40); AST/SGOT 16 U/L (<34); CALCIUM LEVEL 9.4 MG/DL (8.5-10.1); CARBON DIOXIDE LEVEL 28 MMOL/L (20-31); CHLORIDE LEVEL 106 MMOL/L (98-107); CREATININE FOR GFR 0.66 MG/DL (0.55-1.30); GLOMERULAR FILTRATION RATE > 90.0 (>51); POTASSIUM SERUM 4.3 MMOL/L (3.5-5.1); SODIUM LEVEL 144 MMOL/L (136-145)
== END ==
LOC: M EKG 13:32
PROVIDERS: ATTEND Surgery
DX: E21.3 Hyperparathyroidism, unspecified (principal)

== ENCOUNTER → 2025-05-09 | Outpatient (CLI) | payer OTHER ==
[~2025-05-09] MED LIST changes: +ACET32TAB PO; -ALBU8.5H; +ALBU8.5H INH; +AMLO1TAB24 PO; +CEFD1CAP9 PO; +CINA30TA5 PO; -IBUP-1022 PO; +IBUP600T42 PO; -IBUP80TA; +IBUP80TA PO; +K-PHTAB2 PO; +METO1TAB32 PO; +NITR100C2 PO; +POTA-226 PO
[2025-05-09 18:10] LABS: PLATELET COUNT, AUTOMATED 388 10^3/uL (150-450)
[2025-05-09 18:30] LABS: CALCIUM LEVEL 8.5 MG/DL (8.5-10.1); CARBON DIOXIDE LEVEL 27.0 MMOL/L (20-31); CHLORIDE LEVEL 104.0 MMOL/L (98-107); CREATININE FOR GFR 0.84 MG/DL (0.55-1.30); GLOMERULAR FILTRATION RATE 84.1 (>51); POTASSIUM SERUM 4.0 MMOL/L (3.5-5.1); SODIUM LEVEL 140.0 MMOL/L (136-145)
== END ==
LOC: M RAD 17:11
PROVIDERS: ATTEND Urology
DX: Z01.818 Encounter for other preprocedural examination (principal); N20.0 Calculus of kidney; N39.0 Urinary tract infection, site not specified

== ENCOUNTER → 2025-05-12 | Outpatient (REF) | payer OTHER ==
[2025-05-12 13:22] LABS: APPEARANCE, URINE HAZY (CLEAR); BACTERIA, URINE AUTO NEGATIVE (NEGATIVE); BILIRUBIN, URINE AUTO NEGATIVE (NEGATIVE); BLOOD, URINE BLOOD NEGATIVE (NEGATIVE); GLUCOSE, URINE (UA) AUTO NEGATIVE (NEGATIVE); KETONE, URINE AUTO NEGATIVE (NEGATIVE); LEUKOCYTE ESTERASE, URINE AUTO 3+ (NEGATIVE); NITRITE, URINE AUTO NEGATIVE (NEGATIVE); PROTEIN, URINE AUTO NEGATIVE (NEGATIVE); RBC, URINE AUTO 9 /HPF (0-3); SPECIFIC GRAVITY URINE AUTO 1.014 (1.002-1.035); SQUAMOUS EPITHELIAL CELL UR AU 1 /HPF (0-6); UROBILINOGEN, URINE AUTO 0.2 mg/dL (0.0-2.0); WBC, URINE AUTO 29 /HPF (0-3)
== END ==
LOC: M SMT 12:54
PROVIDERS: ATTEND Urology
DX: Z01.818 Encounter for other preprocedural examination (principal); N20.0 Calculus of kidney; N39.0 Urinary tract infection, site not specified

== ENCOUNTER 2025-05-16 10:29 | Day surgery (SDC) | payer OTHER ==
[~2025-05-16] VITALS: Ht 160 cm; Wt 70.5 kg
[~2025-05-16 10:29] MED LIST changes: +ACETAMINOPHEN 1000MG/100ML IV BAG As Ordered ONE; +LIDOCAINE 2% 100 MG/5 ML SDV (FOR ANES.) As Ordered ONE; +ONDANSETRON 4MG 2ML VIAL As Ordered ONE; +dexAMETHasone 4 MG/ML 1 ML VIAL As Ordered ONE
[2025-05-16] MEDS: LR 1,000 ML IV SCH (10:45)
[2025-05-16] MEDS ORDERED: MIDAZOLAM INJ 2 MG/2 ML VIAL As Ordered ONE (10:56)
[2025-05-16] MEDS: SCOPOLAMINE 1MG TRANSDERMAL PATCH As Ordered ONE (11:14)
[2025-05-16] MEDS: ceFAZolin SOD 2 GM IV ONCE IV ONE (11:19)
[2025-05-16] MEDS: SCOPOLAMINE 1MG TRANSDERMAL PATCH TOP ONE (11:28)
[2025-05-16] MEDS: ISOVUE-300 61% 100 ML VIAL As Ordered ONE (11:30)
[2025-05-16] MEDS ORDERED: ONDANSETRON 4MG 2ML VIAL IV PRN (11:45)
[2025-05-16] MEDS ORDERED: LR 1,000 ML IV SCH (11:45)
[2025-05-16] MEDS ORDERED: HYDROMORPHONE HCL 0.5 MG/0.5 ML SYRINGE IV PRN (11:45)
[2025-05-16 12:25] VITALS: BP 132/79; TEMP 97.3; O2SAT 100
== END 2025-05-16 12:55 | disposition home or self-care (01) ==
LOC: M SDC 10:29
PROVIDERS: ATTEND Urology
DX: N13.2 Hydronephrosis with renal and ureteral calculous obstruction (principal); I10 Essential (primary) hypertension; J45.909 Unspecified asthma, uncomplicated; Z79.899 Other long term (current) drug therapy; Z98.51 Tubal ligation status; Z90.710 Acquired absence of both cervix and uterus; Z91.040 Latex allergy status; Z88.5 Allergy status to narcotic agent
CPT/HCPCS: 52332; 52352; 76000; 82365; C2617; J0131; J0688; J1100; J2250; J2405; J3010; Q9967